=== PATIENT | female | born 1955 | race Caucasian/White ===

== ENCOUNTER 2016-07-31 10:12 | Emergency (ER) | payer OTHER, SELFPAY ==
[2016-07-31 10:28] VITALS: O2SAT 96
--- NOTE | 2016-07-31 10:57 | ERPHSYRPT ---
- History of Present Illness Time Seen by Provider: 07/31/16 10:49 Source: patient Exam Limitations: no limitations Patient Subjective Stated Complaint: pain left ankle for one week. denies injury Triage Nursing Assessment: ambulated to room limping on left foot. left ankle swollen. foot warm, normal color, good pedal pulse and cap refill Physician History: The patient is a 61-year-old female with her daughter complaining of left foot and ankle pain for one week. It is also swollen more so after the end of the day. She denies injury. She states she has broken the ankle 3 times in the past. She is taking Tylenol with some relief. It hurts to walk on it. Method of Injury: other (none) Occurred: last week Quality: constant, aching Severity of Pain-Max: mild Severity of Pain-Current: mild Lower Extremities Pain: foot: left, ankle: left Modifying Factors: Improves With: nothing Associated Symptoms: none Allergies/Adverse Reactions: codeine [Codeine] Allergy (Mild, Verified 08/07/15 13:39) Hives hives with itching reported by pt. Home Medications: No Home Meds 1 ea UD 08/07/15 [History] Hx Tetanus, Diphtheria Vaccination/Date Given: No (unknown) Hx Influenza Vaccination/Date Given: No Hx Pneumococcal Vaccination/Date Given: No Immunizations Up to Date: No - Review of Systems Constitutional: No Fever, No Chills Eyes: No Symptoms Ears, Nose, & Throat: No Symptoms Respiratory: No Cough, No Dyspnea Cardiac: No Chest Pain, No Edema, No Syncope Abdominal/Gastrointestinal: No Abdominal Pain, No Nausea, No Vomiting, No Diarrhea Genitourinary Symptoms: No Dysuria Musculoskeletal: Joint Swelling, No Back Pain, No Neck Pain Skin: No Rash Neurological: No Dizziness, No Focal Weakness, No Sensory Changes Psychological: No Symptoms Endocrine: No Symptoms Hematologic/Lymphatic: No Symptoms Immunological/Allergic: No Symptoms All Other Systems: Reviewed and Negative - Past Medical History Pertinent Past Medical History: Yes Neurological History: No Pertinent History ENT History: No Pertinent History Cardiac History: Hypertension Respiratory History: Bronchitis, COPD, Other Endocrine Medical History: No Pertinent History Musculoskeletal History: No Pertinent History GI Medical History: GERD History: No Pertinent History Psycho-Social History: No Pertinent History Female Reproductive Disorders: No Pertinent History - Past Surgical History Past Surgical History: Yes Neuro Surgical History: No Pertinent History Cardiac: Cardiac Catheterization Respiratory: No Pertinent History Gastrointestinal: No Pertinent History Genitourinary: No Pertinent History Musculoskeletal: Orthopedic Surgery Female Surgical History: Hysterectomy Other Surgical History: HEART CATH, foot - Social History Smoking Status: Current every day smoker How long have you smoked: 12 Exposure to second hand smoke: Yes Alcohol Use: None Drug Use: none Patient Lives Alone: Yes Significant Family History: heart disease, hypertension - Female History Hx Now: No - Nursing Vital Signs Nursing Vital Signs: Initial Vital Signs Temperature 97.8 F Temperature Source Oral Pulse Rate 83 Respiratory Rate 20 Blood Pressure 208/114 Pain Intensity 4 - Physical Exam General Appearance: mild distress Eyes, Ears, Nose, Throat Exam: moist mucous membranes Neck Exam: non-tender, supple Cardiovascular/Respiratory Exam: chest non-tender, normal breath sounds, regular rate/rhythm, no respiratory distress Gastrointestinal/Abdominal Exam: non-tender, guarding Back Exam: normal inspection, No vertebral tenderness Hips Exam: bilateral: non-tender, normal inspection Legs Exam: bilateral leg: non-tender, normal inspection Knees Exam: bilateral knee: non-tender, normal inspection Ankle Exam: right ankle: non-tender, normal inspection, left ankle: pain, soft tissue tenderness, swelling Foot Exam: right foot: non-tender, normal inspection, normal range of motion, left foot: pain (pain and swelling at distal Achilles tendon ), swelling Neuro/Tendon Exam: normal sensation, normal motor functions Mental Status Exam: alert, oriented x 3, cooperative Skin Exam: normal color, warm, dry SpO2 Interpretation: normal SpO2: 96 Oxygen Delivery: Room Air - Radiology Exams Left Ankle X-ray Interpretation: Teleradiologist Report, Negative Left Foot X-ray Interpretation: Teleradiologist Report, Negative Ordered Tests: Active Orders 24 hr Category Date Time Status ANKLE (3 VIEWS) Stat Exams 07/31/16 11:01 Completed FOOT (MINIMUM 3 VIEWS) Stat Exams 07/31/16 11:01 Completed - Progress Progress: unchanged Counseled pt/family regarding: lab results - Departure Time of Disposition: 11:30 Departure Disposition: Home Clinical Impression: Achilles bursitis or tendinitis Condition: Stable Critical Care Time: No Additional Instructions: Ice and Naproxen as needed. No weight bearing until released. Follow up on at 10:[address] Plasencia. Prescriptions: Naproxen 500 mg PO BID PRN #30 tablet
--- NOTE | 2016-07-31 11:25 | XRAY ---
Indication: Pain and swelling. No known injury. Comparison: None 3 views of the left ankle demonstrates mild soft tissue swelling and moderate posterior/plantar heel spurs. No other bony, articular, or soft tissue abnormalities.
--- NOTE | 2016-07-31 11:25 | XRAY ---
Indication: Pain and swelling. No known injury. Comparison: None 3 nonweightbearing views of the left foot demonstrates moderate heel spurs. Smaller spur at the base of the fifth metatarsal. No other bony, articular, or soft tissue abnormalities.
[2016-07-31 11:29] VITALS: BP 174/92; PULSE 73
== END 2016-07-31 12:02 | disposition home or self-care (01) ==
LOC: ED 10:12
DX: M76.62 Achilles tendinitis, left leg (principal); I10 Essential (primary) hypertension
CPT/HCPCS: 73610; 73630; 99283

== ENCOUNTER 2017-04-06 09:48 | Emergency (ER) | payer OTHER ==
--- NOTE | 2017-04-06 10:20 | ERPHSYRPT ---
- History of Present Illness Time Seen by Provider: 04/06/17 10:12 Source: patient, family Exam Limitations: no limitations Patient Subjective Stated Complaint: PT REPORTS SOB-CHEST PRESSURE-PRODUCTIVE COUGH WITH CREAMY SPUTUM Triage Nursing Assessment: PT PINK WARM ET [id number] UPON ARRIVAL-MOIST COUGH NTOED-SLIGHT WHEEZES NOTED-NO RETRACTIONS NTOED Physician History: The patient is a 61-year-old female with her family complaining of pain between her shoulder blades since Thursday night, a cold and cough for 2 weeks, increasing shortness of breath today, and palpitations in her chest last night. She's been taking 2 rounds of antibiotic for the cold and cough. She finished the last antibiotic yesterday. She's been coughing up yellow sputum. She denies fevers. She smokes. Her past medical history is significant for COPD, hypertension, and high cholesterol. Timing/Duration: day(s) (3) Activities at Onset: none Quality: other (palpitations) Location: central Chest Pain Radiation: no radiation Severity of Pain-Max: moderate Severity of Pain-Current: none Modifying Factors: Improves With: nothing Nitro Today/Relief: no nitro taken today Aspirin Treatment Today: no aspirin today Associated Symptoms: shortness of breath, cough Prior Chest Pain/Cardiac Workup: no prior chest pain, recently seen/treated Allergies/Adverse Reactions: codeine [Codeine] Allergy (Mild, Verified 04/06/17 10:01) Hives hives with itching reported by pt. Home Medications: Amlodipine Besylate 5 mg [Norvasc 5 mg] 5 mg PO DAILY 04/06/17 [History] Atorvastatin Calcium [Lipitor] 20 mg PO DAILY 04/06/17 [History] Esomeprazole Magnesium [Nexium] 40 mg PO DAILY 04/06/17 [History] Hydralazine HCl 50 mg PO BID 04/06/17 [History] Spironolactone [Aldactone] 50 mg PO DAILY 04/06/17 [History] Hx Tetanus, Diphtheria Vaccination/Date Given: No Hx Influenza Vaccination/Date Given: No Hx Pneumococcal Vaccination/Date Given: No Immunizations Up to Date: Yes - Review of Systems Constitutional: No Fever, No Chills Eyes: No Symptoms Ears, Nose, & Throat: No Symptoms Respiratory: Cough, Dyspnea, Wheezing Cardiac: Palpitations Abdominal/Gastrointestinal: No Abdominal Pain, No Nausea, No Vomiting, No Diarrhea Genitourinary Symptoms: No Dysuria Musculoskeletal: No Back Pain, No Neck Pain Skin: No Symptoms Neurological: No Dizziness, No Focal Weakness, No Sensory Changes Psychological: No Symptoms Endocrine: No Symptoms Hematologic/Lymphatic: No Symptoms Immunological/Allergic: No Symptoms All Other Systems: Reviewed and Negative - Past Medical History Pertinent Past Medical History: Yes Neurological History: No Pertinent History ENT History: No Pertinent History Cardiac History: Hypertension Respiratory History: Bronchitis, COPD Endocrine Medical History: No Pertinent History Musculoskeletal History: Other GI Medical History: GERD History: No Pertinent History Psycho-Social History: No Pertinent History Female Reproductive Disorders: No Pertinent History Other Medical History: Bone spurs in the L foot, hiatial hernia - Past Surgical History Past Surgical History: Yes Neuro Surgical History: No Pertinent History Cardiac: Cardiac Catheterization Respiratory: No Pertinent History Gastrointestinal: No Pertinent History Genitourinary: No Pertinent History Musculoskeletal: Orthopedic Surgery Female Surgical History: Hysterectomy Other Surgical History: HEART CATH, foot - Social History Smoking Status: Current every day smoker How long have you smoked: 12 Exposure to second hand smoke: Yes Alcohol Use: None Drug Use: none Patient Lives Alone: Yes Significant Family History: heart disease, hypertension - Female History Hx Now: No - Nursing Vital Signs Nursing Vital Signs: Initial Vital Signs Temperature 98.8 F 04/06/17 09:58 Pulse Rate 90 04/06/17 09:58 Respiratory Rate 20 04/06/17 09:58 Blood Pressure 161/82 04/06/17 09:58 O2 Sat by Pulse Oximetry 99 04/06/17 09:58 Pain Scale Pain Intensity 3 - Physical Exam General Appearance: mild distress Eye Exam: PERRL/EOMI, eyes nml inspection Ears, Nose, Throat Exam: normal ENT inspection, moist mucous membranes Neck Exam: normal inspection, non-tender, supple Respiratory Exam: diminished breath sounds, wheezing Cardiovascular Exam: regular rate/rhythm, normal heart sounds, No edema Gastrointestinal/Abdomen Exam: soft, No tenderness, No mass Pelvic Exam: not done Rectal Exam: not done Back Exam: normal inspection, No CVA tenderness, No vertebral tenderness Extremity Exam: normal inspection, normal range of motion Neurologic Exam: alert, oriented x 3, cooperative, normal mood/affect, nml cerebellar function, sensation nml, No motor deficits Skin Exam: normal color, warm, dry Lymphatic Exam: No adenopathy SpO2 Interpretation: normal SpO2: 99 Oxygen Delivery: Room Air - Course EKG Interpreted by Me: RATE, Sinus Rhythm, Left [place] Deviation, NORMAL INTERVALS , NORMAL QRS, NORMAL ST-T - Radiology Exams Chest X-ray Interpretation: Teleradiologist Report, Negative (per Dr Rod) Ordered Tests: Active Orders 24 hr Category Date Time Status EKG-ER Only STAT Care 04/06/17 10:25 Active IV Insertion STAT Care 04/06/17 10:25 Active Pulse Oximetry (ED) STAT Care 04/06/17 10:25 Active CHEST 2 VIEWS (PA AND LAT) Stat Exams 04/06/17 10:26 Completed BLOOD CULTURE Stat Lab 04/06/17 10:42 Received CBC W DIFF Stat Lab 04/06/17 10:15 Completed CMP Stat Lab 04/06/17 10:15 Completed Lactic Acid Stat Lab 04/06/17 10:15 Completed TROPONIN Q3H Lab 04/06/17 10:15 Completed TROPONIN Q3H Lab 04/06/17 13:30 Ordered TROPONIN Q3H Lab 04/06/17 16:30 Ordered TROPONIN Q3H Lab 04/06/17 19:30 Ordered TROPONIN Q3H Lab 04/06/17 22:30 Ordered Respiratory Nebulizer STAT RT 04/06/17 10:27 Active Medication Summary Discontinued Medications Generic Name Dose Route Start Last Admin Trade Name Freq PRN Reason Stop Dose Admin Albuterol/Ipratropium 3 ml 04/06/17 10:25 04/06/17 10:43 Duoneb 0.5-3 Mg/3 Ml Neb IH 04/06/17 10:26 3 ml STAT ONE Administration Albuterol/Ipratropium Confirm 04/06/17 10:41 Duoneb 0.5-3 Mg/3 Ml Neb Administered 04/06/17 10:42 Dose 3 ml IH .STK-MED ONE Methylprednisolone Sodium Succinate 125 mg 04/06/17 10:25 04/06/17 10:49 Solu-Medrol 125 Mg IV 04/06/17 10:26 125 mg STAT ONE Administration Methylprednisolone Sodium Succinate Confirm 04/06/17 10:36 Solu-Medrol 125 Mg Administered 04/06/17 10:37 Dose 125 mg .ROUTE .STK-MED ONE Lab/Rad Data: Laboratory Result Diagrams 04/06/17 10:15 04/06/17 10:15 Laboratory Results 04/06/17 04/06/17 04/06/17 Range/Units 10:15 10:15 10:15 WBC (4.0-10.5) K/mm3 RBC (4.1-5.4) M/mm3 Hgb (12.0-16.0) gm/dl Hct (35-47) % MCV (78-100) fl MCH (26-32) pg MCHC (32-36) g/dl RDW (11.5-14.0) % Plt Count (150-450) K/mm3 MPV (6-9.5) fl Gran % (36.0-66.0) % Lymphocytes % (24.0-44.0) % Monocytes % (0.0-12.0) % Eosinophils % (0.00-5.0) % Basophils % (0.0-0.4) % Basophils # (0-0.4) Sodium 139 (136-145) mEq/L Potassium 3.7 (3.5-5.1) mEq/L Chloride 104 (98-107) mEq/L Carbon Dioxide 25.6 (21-32) mEq/L Anion Gap 13.1 (5-15) MEQ/L BUN 16 (9-20) mg/dL Creatinine 1.13 (0.55-1.30) mg/dl Estimated GFR 52 ML/MIN Glucose 201 H (70-110) MG/DL Lactic Acid 1.2 (0.4-2.0) Calcium 9.2 (8.5-10.1) mg/dL Total Bilirubin 0.70 (0.2-1.0) mg/dL AST 24 (15-37) U/L ALT 25 (12-78) U/L Alkaline Phosphatase 68 (46-116) U/L Troponin I < 0.017 (0.000-0.056) ng/ml Serum Total Protein 7.4 (6.4-8.2) gm/dL Albumin 3.9 (3.4-5.0) g/dL 04/06/17 Range/Units 10:15 WBC 15.9 H (4.0-10.5) K/mm3 RBC 4.78 (4.1-5.4) M/mm3 Hgb 14.5 (12.0-16.0) gm/dl Hct 44.1 (35-47) % MCV 92.3 (78-100) fl MCH 30.3 (26-32) pg MCHC 32.9 (32-36) g/dl RDW 14.1 H (11.5-14.0) % Plt Count 274 (150-450) K/mm3 MPV 9.3 (6-9.5) fl Gran % 79.7 H (36.0-66.0) % Lymphocytes % 13.3 L (24.0-44.0) % Monocytes % 4.9 (0.0-12.0) % Eosinophils % 1.8 (0.00-5.0) % Basophils % 0.3 (0.0-0.4) % Basophils # 0.04 (0-0.4) Sodium (136-145) mEq/L Potassium (3.5-5.1) mEq/L Chloride (98-107) mEq/L Carbon Dioxide (21-32) mEq/L Anion Gap (5-15) MEQ/L BUN (9-20) mg/dL Creatinine (0.55-1.30) mg/dl Estimated GFR ML/MIN Glucose (70-110) MG/DL Lactic Acid (0.4-2.0) Calcium (8.5-10.1) mg/dL Total Bilirubin (0.2-1.0) mg/dL AST (15-37) U/L ALT (12-78) U/L Alkaline Phosphatase (46-116) U/L Troponin I (0.000-0.056) ng/ml Serum Total Protein (6.4-8.2) gm/dL Albumin (3.4-5.0) g/dL - Progress Progress: improved Air Movement: good Progress Note: 04/06/17 12:06 After a DuoNeb treatment and Solu-Medrol 125 mg IV, the air movement is good and the wheezing has resolved. O2 saturation is still in the high 90s. The patient however states she is no better. Blood Culture(s) Obtained: Yes Antibiotics given: No Counseled pt/family regarding: lab results, diagnosis, need for follow-up, rad results - Departure Time of Disposition: 12:04 Departure Disposition: Home Clinical Impression: Bronchitis Condition: Stable Critical Care Time: No Referrals: LANA MENON MD [Primary Care Provider] - Additional Instructions: You have bronchitis with wheezing. You were treated with a DuoNeb and Solu- Medrol 125 mg by IV in the ER. The wheezing has resolved and you are moving air very well. Her previous antibiotics were doxycycline 100 mg twice a day for 10 days followed by Levaquin 500 mg daily for 7 days. Starting today take Augmentin 875 twice a day for 10 days. Also take prednisone 60 mg daily for 5 days. You were given a work excuse for today. Follow-up in one to 2 days. Prescriptions: Amoxicillin/Potassium Clav [Augmentin 875-125 Tablet] 875 mg PO BID #20 tablet Prednisone 10 mg [Deltasone 10 mg] 60 mg PO DAILY #30 tablet
[2017-04-06] MEDS ORDERED: solu-MEDROL 125 MG IV ONE (10:25)
[2017-04-06] MEDS ORDERED: DUONEB 0.5-3 MG/3 ml Neb IH ONE ×2 (10:25→10:41)
[2017-04-06] MEDS ORDERED: solu-MEDROL 125 MG ONE (10:36)
[2017-04-06 10:45] LABS: BASOPHIL % 0.3 % (0.0-0.4); Eosinophil % 1.8 % (0.00-5.0); Granulocytes % 79.7 % (36.0-66.0); Lymphocytes % 13.3 % (24.0-44.0); Mean Cell Volume 92.3 fl (78-100); Mean Corpuscular Hemoglobin 30.3 pg (26-32); Mean Platelet Volume 9.3 fl (6-9.5); Monocytes % 4.9 % (0.0-12.0); Platelet Count 274 K/mm3 (150-450); Red Blood Count 4.78 M/mm3 (4.1-5.4); Red Cell Distribution Width 14.1 % (11.5-14.0); White Blood Count 15.9 K/mm3 (4.0-10.5)
[2017-04-06 10:49] LABS: ALBUMIN 3.9 g/dL (3.4-5.0); ANION GAP 13.1 MEQ/L (5-15); BILIRUBIN,TOTAL 0.7 mg/dL (0.2-1.0); Carbon Dioxide 25.6 mEq/L (21-32); Potassium 3.7 mEq/L (3.5-5.1); Total Protein 7.4 gm/dL (6.4-8.2)
[2017-04-06 11:05] VITALS: BP 146/78; PULSE 78
--- NOTE | 2017-04-06 11:33 | XRAY ---
Indication: Short of breath. Comparison: June 30, 2014. PA/lateral chest demonstrates normal heart and lungs. Bony thorax intact again with mild degenerative changes. No new/acute findings.
[2017-04-06 12:09] VITALS: O2SAT 99
== END 2017-04-06 12:17 | disposition home or self-care (01) ==
LOC: ED 09:48
DX: J40 Bronchitis, not specified as acute or chronic (principal); J44.9 Chronic obstructive pulmonary disease, unspecified; I10 Essential (primary) hypertension; E78.00 Pure hypercholesterolemia, unspecified; R00.2 Palpitations; Z79.899 Other long term (current) drug therapy
CPT/HCPCS: 36000; 36415; 71020; 80053; 83605; 84484; 85025; 87040; 93005; 96374; 99284; J2930; A9270-GY

== ENCOUNTER 2017-04-12 10:05 | Observation (INO) | payer OTHER ==
[2017-04-12] MEDS ORDERED: Sodium Chloride 0.9% 1000 ML 1,000 ML IV STA (10:07)
[2017-04-12] MEDS ORDERED: MORPHINE SULFATE 2 MG INJ IV ONE (10:07)
[2017-04-12] MEDS ORDERED: DUONEB 0.5-3 MG/3 ml Neb IH ONE ×2 (10:11→10:36)
[2017-04-12] MEDS ORDERED: MORPHINE SULFATE 2 MG INJ ONE (10:16)
[2017-04-12] MEDS ORDERED: Sodium Chloride 0.9% 1000 ML 1,000 ML ONE (10:17)
[2017-04-12 10:34] LABS: Mean Cell Volume 91.7 fl (78-100); Mean Corpuscular Hemoglobin 30.2 pg (26-32); Platelet Count 304 K/mm3 (150-450); Red Cell Distribution Width 14.6 % (11.5-14.0); White Blood Count 20.6 K/mm3 (4.0-10.5)
[2017-04-12 10:44] LABS: ALBUMIN 3.8 g/dL (3.4-5.0); ANION GAP 13.1 MEQ/L (5-15); BILIRUBIN,TOTAL 0.7 mg/dL (0.2-1.0); Carbon Dioxide 29.3 mEq/L (21-32); Potassium 3.7 mEq/L (3.5-5.1); Total Protein 7.2 gm/dL (6.4-8.2)
--- NOTE | 2017-04-12 10:53 | ERPHSYRPT ---
- History of Present Illness Time Seen by Provider: 04/12/17 10:51 Historian: patient Exam Limitations: no limitations Patient Subjective Stated Complaint: PT states "I had broncitis that I am on augmentin for but this morning I got off work and my chest just exploded in pain on the right side." Triage Nursing Assessment: Pt alert and oriented X 3, skin pwd pt ambulates holding on to her right side. Pt moaning, tachypneic, has raspy voice. Pt able to speak in full sentences, clear speech. Physician History: PT states "I had broncitis that I am on augmentin for but this morning I got off work and my chest just exploded in pain on the right side."patient is complaining of right-side lower chest wall pain. Timing/Duration: today Activities at Onset: none Quality: stabbing Location: other (right side lower chest wall) Severity of Pain-Max: moderate Severity of Pain-Current: moderate Modifying Factors: Improves With: nothing Associated Symptoms: shortness of breath, cough, hurts to breathe Prior Chest Pain/Cardiac Workup: no prior chest pain Nitro Today/Relief: no nitro taken today Aspirin Treatment Today: no aspirin today Allergies/Adverse Reactions: codeine [Codeine] Allergy (Mild, Verified 04/06/17 10:01) Hives hives with itching reported by pt. Home Medications: Amlodipine Besylate 5 mg [Norvasc 5 mg] 5 mg PO DAILY 04/06/17 [History] Atorvastatin Calcium [Lipitor] 20 mg PO DAILY 04/06/17 [History] Esomeprazole Magnesium [Nexium] 40 mg PO DAILY 04/06/17 [History] Hydralazine HCl 50 mg PO BID 04/06/17 [History] Hx Tetanus, Diphtheria Vaccination/Date Given: No Hx Influenza Vaccination/Date Given: No Hx Pneumococcal Vaccination/Date Given: No Immunizations Up to Date: Yes - Review of Systems Constitutional: No Fever, No Chills Eyes: No Symptoms Ears, Nose, & Throat: No Symptoms Respiratory: No Cough, No Dyspnea Cardiac: Chest Pain (right side lower chest wall), No Edema, No Syncope Abdominal/Gastrointestinal: No Abdominal Pain, No Nausea, No Vomiting, No Diarrhea Genitourinary Symptoms: No Dysuria Musculoskeletal: No Back Pain, No Neck Pain Skin: No Rash Neurological: No Dizziness, No Focal Weakness, No Sensory Changes Psychological: No Symptoms Endocrine: No Symptoms All Other Systems: Reviewed and Negative - Past Medical History Pertinent Past Medical History: Yes Neurological History: No Pertinent History ENT History: No Pertinent History Cardiac History: Hypertension Respiratory History: Bronchitis, COPD Endocrine Medical History: No Pertinent History Musculoskeletal History: Other GI Medical History: GERD History: No Pertinent History Psycho-Social History: No Pertinent History Female Reproductive Disorders: No Pertinent History Other Medical History: Bone spurs in the L foot, hiatial hernia - Past Surgical History Past Surgical History: Yes Neuro Surgical History: No Pertinent History Cardiac: Cardiac Catheterization Respiratory: No Pertinent History Gastrointestinal: No Pertinent History Genitourinary: No Pertinent History Musculoskeletal: Orthopedic Surgery Female Surgical History: Hysterectomy Other Surgical History: HEART CATH, foot - Social History Smoking Status: Current every day smoker How long have you smoked: 12 years Exposure to second hand smoke: Yes Alcohol Use: None Drug Use: none Patient Lives Alone: Yes Significant Family History: heart disease, hypertension - Female History Hx Last Menstrual Period: histerectomy Hx Now: No - Nursing Vital Signs Nursing Vital Signs: Initial Vital Signs Temperature 97.9 F 04/12/17 10:06 Pulse Rate 86 04/12/17 10:06 Respiratory Rate 24 04/12/17 10:06 Blood Pressure 152/72 04/12/17 10:06 O2 Sat by Pulse Oximetry 99 04/12/17 10:06 Pain Scale Pain Intensity 4 - Physical Exam General Appearance: no apparent distress, alert Eye Exam: PERRL/EOMI, eyes nml inspection Ears, Nose, Throat Exam: normal ENT inspection, moist mucous membranes Neck Exam: normal inspection, non-tender, supple, full range of motion Respiratory Exam: normal breath sounds, chest tenderness (right side lower chest wall), No respiratory distress Cardiovascular Exam: regular rate/rhythm, normal heart sounds Gastrointestinal/Abdomen Exam: soft, No tenderness, No mass Back Exam: normal inspection, No CVA tenderness, No vertebral tenderness Extremity Exam: normal inspection, normal range of motion Neurologic Exam: alert, oriented x 3, cooperative, normal mood/affect, sensation nml, No motor deficits Skin Exam: normal color, warm, dry SpO2: 97 Oxygen Delivery: Room Air - Course Nursing assessment & vital signs reviewed: Yes EKG Interpreted by Me: Sinus Rhythm - Radiology Exams Chest X-ray Interpretation: Reviewed by me (no acute infiltrate) Ordered Tests: Active Orders 24 hr Category Date Time Status Telephone Clerks Supervisor STAT Care 04/12/17 10:08 Active EKG-ER Only STAT Care 04/12/17 10:07 Active IV Insertion STAT Care 04/12/17 10:07 Active CHEST 1 VIEW (PORTABLE) Stat Exams 04/12/17 10:08 Taken CBC W DIFF Stat Lab 04/12/17 10:15 Completed CMP Stat Lab 04/12/17 10:15 Completed D-DIMER QUANTITATION Stat Lab 04/12/17 10:15 Completed Manual Differential NC Stat Lab 04/12/17 10:15 Completed TROPONIN Stat Lab 04/12/17 10:15 Completed Respiratory Nebulizer STAT RT 04/12/17 10:11 Completed Transfer Order Routine Transfer 04/12/17 Ordered Medication Summary Discontinued Medications Generic Name Dose Route Start Last Admin Trade Name Freq PRN Reason Stop Dose Admin Albuterol/Ipratropium 3 ml 04/12/17 10:11 04/12/17 10:36 Duoneb 0.5-3 Mg/3 Ml Neb IH 04/12/17 10:12 3 ml STAT ONE Administration Albuterol/Ipratropium Confirm 04/12/17 10:36 Duoneb 0.5-3 Mg/3 Ml Neb Administered 04/12/17 10:37 Dose 3 ml IH .STK-MED ONE Fentanyl Citrate 50 mcg 04/12/17 11:30 Sublimaze 100 Mcg/2 Ml IV 04/12/17 11:31 STAT ONE Sodium Chloride 1,000 mls @ 999 mls/hr 04/12/17 10:07 04/12/17 10:18 Sodium Chloride 0.9% 1000 Ml IV 04/12/17 11:07 999 mls/hr .Q1H1M STA Administration Sodium Chloride Confirm 04/12/17 10:17 Sodium Chloride 0.9% 1000 Ml Administered 04/12/17 10:18 Dose 1,000 mls @ ud .ROUTE .STK-MED ONE Morphine Sulfate 2 mg 04/12/17 10:07 04/12/17 10:18 Morphine Sulfate 2 Mg Inj IV 04/12/17 10:08 2 mg STAT ONE Administration Morphine Sulfate Confirm 04/12/17 10:16 Morphine Sulfate 2 Mg Inj Administered 04/12/17 10:17 Dose 2 mg .ROUTE .STK-MED ONE Lab/Rad Data: Laboratory Result Diagrams 04/12/17 10:15 04/12/17 10:15 Laboratory Results 04/12/17 04/12/17 04/12/17 Range/Units 10:15 10:15 10:15 WBC (4.0-10.5) K/mm3 RBC (4.1-5.4) M/mm3 Hgb (12.0-16.0) gm/dl Hct (35-47) % MCV (78-100) fl MCH (26-32) pg MCHC (32-36) g/dl RDW (11.5-14.0) % Plt Count (150-450) K/mm3 MPV (6-9.5) fl D-Dimer 192 (0-500) ng/mL Sodium (136-145) mEq/L Potassium (3.5-5.1) mEq/L Chloride (98-107) mEq/L Carbon Dioxide (21-32) mEq/L Anion Gap (5-15) MEQ/L BUN (9-20) mg/dL Creatinine (0.55-1.30) mg/dl Estimated GFR ML/MIN Glucose (70-110) MG/DL Hemoglobin A1c 6.6 H (4.5-6.2) Calcium (8.5-10.1) mg/dL Total Bilirubin (0.2-1.0) mg/dL AST (15-37) U/L ALT (12-78) U/L Alkaline Phosphatase (46-116) U/L Troponin I < 0.017 (0.000-0.056) ng/ml Serum Total Protein (6.4-8.2) gm/dL Albumin (3.4-5.0) g/dL 04/12/17 04/12/17 Range/Units 10:15 10:15 WBC 20.6 H (4.0-10.5) K/mm3 RBC 4.70 (4.1-5.4) M/mm3 Hgb 14.2 (12.0-16.0) gm/dl Hct 43.1 (35-47) % MCV 91.7 (78-100) fl MCH 30.2 (26-32) pg MCHC 32.9 (32-36) g/dl RDW 14.6 H (11.5-14.0) % Plt Count 304 (150-450) K/mm3 MPV 9.0 (6-9.5) fl D-Dimer (0-500) ng/mL Sodium 141 (136-145) mEq/L Potassium 3.7 (3.5-5.1) mEq/L Chloride 102 (98-107) mEq/L Carbon Dioxide 29.3 (21-32) mEq/L Anion Gap 13.1 (5-15) MEQ/L BUN 22 H (9-20) mg/dL Creatinine 1.09 (0.55-1.30) mg/dl Estimated GFR 54 ML/MIN Glucose 168 H (70-110) MG/DL Hemoglobin A1c (4.5-6.2) Calcium 9.1 (8.5-10.1) mg/dL Total Bilirubin 0.70 (0.2-1.0) mg/dL AST 10 L (15-37) U/L ALT 26 (12-78) U/L Alkaline Phosphatase 62 (46-116) U/L Troponin I (0.000-0.056) ng/ml Serum Total Protein 7.2 (6.4-8.2) gm/dL Albumin 3.8 (3.4-5.0) g/dL - Progress Progress: unchanged Air Movement: fair Blood Culture(s) Obtained: Yes Antibiotics given: Yes Discussed with DrRonald: Luis Angel Zhao Will see patient in: hospital (observation) Counseled pt/family regarding: lab results, diagnosis, need for follow-up, smoking cessation - Departure Time of Disposition: 11:36 Departure Disposition: Observation Clinical Impression: Bronchitis, Pleuralgia Condition: Fair Critical Care Time: Yes Critical Care Time(excluding separately billable procedures): 30-74 minutes Referrals: LANA MENON MD [Primary Care Provider] -
[2017-04-12] MEDS ORDERED: SUBLIMAZE 100 MCG/2 ML IV ONE (11:30)
[2017-04-12 11:40] LABS: Platelet Estimate NORMAL (NORMAL); Total Cells Counted 100
[2017-04-12] MEDS ORDERED: SUBLIMAZE 100 MCG/2 ML ONE (11:42)
[2017-04-12] MEDS ORDERED: TORAdol 30 mg Injection IV PRN (12:30)
[2017-04-12] MEDS ORDERED: MORPHINE SULFATE 2 MG INJ IV PRN (12:30)
[2017-04-12] MEDS ORDERED: TYLENOL 325 MG PO PRN (12:30)
[2017-04-12] MEDS ORDERED: Zofran 4 MG/2 ML VIAL IV PRN (12:30)
[2017-04-12] MEDS ORDERED: solu-MEDROL 125 MG IV SCH (12:30)
[2017-04-12] MEDS ORDERED: solu-MEDROL 125 MG ONE (13:56)
[2017-04-12] MEDS ORDERED: ROCEPHIN 1 Gm-D5w 50 ml Bag** 1 G/50 ML IVPB IV SCH (14:00)
[2017-04-12] MEDS: Sodium Chloride 0.9% 1000 ML 1,000 ML IV SCH (14:16)
[2017-04-12] MEDS: PROVENTIL 2.5 MG/3 ML NEB IH SCH ×3 (14:47→23:12)
[2017-04-12] MEDS ORDERED: Zithromax 500 MG/ 250 ML NaCl Premix 500 MG/250 ML IVPB IV SCH (15:00)
[2017-04-12] MEDS ORDERED: PROTONIX 40 MG IV IV SCH (15:00)
[2017-04-12] MEDS: solu-MEDROL 125 MG IV SCH ×2 (18:36→23:33)
--- NOTE | 2017-04-12 20:17 | XRAY ---
Indication: Right-sided chest pain. Comparison: April 06, 2017. Portable chest again demonstrates normal heart and lungs. No new/acute cardiopulmonary abnormalities.
[2017-04-13] MEDS: Sodium Chloride 0.9% 1000 ML 1,000 ML IV SCH (01:10)
[2017-04-13] MEDS: PROVENTIL 2.5 MG/3 ML NEB IH SCH ×2 (02:53→06:46)
[2017-04-13] MEDS: solu-MEDROL 125 MG IV SCH (05:24)
[2017-04-13 05:53] LABS: ANION GAP 16.4 MEQ/L (5-15); Carbon Dioxide 24.4 mEq/L (21-32); Mean Cell Volume 92.9 fl (78-100); Mean Corpuscular Hemoglobin 30.2 pg (26-32); Mean Platelet Volume 9.4 fl (6-9.5); Platelet Count 263 K/mm3 (150-450); Potassium 3.8 mEq/L (3.5-5.1); Red Blood Count 4.07 M/mm3 (4.1-5.4); Red Cell Distribution Width 14.2 % (11.5-14.0); White Blood Count 14.4 K/mm3 (4.0-10.5)
[2017-04-13 06:14] LABS: BAND 1 % (0.0-2.0); Platelet Estimate NORMAL (NORMAL); Total Cells Counted 100
[2017-04-13 06:50] VITALS: O2SAT 95
[2017-04-13 07:16] VITALS: BP 140/63; PULSE 80
--- NOTE | 2017-04-13 08:01 | PCM.SSS ---
History of Present Illness - Chief Complaint Chief Complaint: Shortness of Breath History of Present Illness: is a 61 year old female who reported to the ER yesterday, she had been seen 6 days prior and diagnosed with acute bronchitis. She was put on prednisone and augmentin. She has completed the prednisone, was on day 6 of augmentin and developed right sided chest pain. She felt like her right chest wall was in a vice, she had sharp pain with cough or deep breath. no nausea, vomiting, she was short of breath, no diaphoresis. - Review of Systems Constitutional: No Symptoms Respiratory: Cough, Short Of Breath Cardiac: Chest Pain Abdominal/Gastrointestinal: No Abdominal Pain, No Nausea, No Vomiting, No Diarrhea Genitourinary Symptoms: No Dysuria All Other Systems: Reviewed and Negative Medications & Allergies Home Medications: Home Medication List Amlodipine Besylate 5 mg [Norvasc 5 mg] 5 mg PO DAILY 04/06/17 [History Confirmed 04/12/17] Amoxicillin/Potassium Clav [Augmentin 875-125 Tablet] 875 mg PO BID #20 tablet 04/06/17 [Rx Confirmed 04/12/17] Atorvastatin Calcium [Lipitor] 20 mg PO DAILY 04/06/17 [History Confirmed ] Esomeprazole Magnesium [Nexium] 40 mg PO DAILY 04/06/17 [History Confirmed 04/12] Hydralazine HCl 50 mg PO BID 04/06/17 [History Confirmed 04/12/17] Albuterol 8 gm Mdi Hfa [Ventolin Hfa MDI] 8 gm IH Q4-6HPRN PRN 04/12/17 [ History Confirmed 04/12/17] Spironolactone 25 mg [Aldactone 25 MG] 50 mg PO DAILY 04/12/17 [History Confirmed 04/12/17] Albuterol 2.5 mg/3 ml Neb [Proventil 2.5 mg/3 ml Neb] 2.5 mg IH Q4HRT # 100 neb 04/13/17 [Rx] Methylprednisolone [Medrol Dose Pack] 4 mg PO UD #1 pack 04/13/17 [Rx] Allergies/Adverse Reactions: Allergies Allergy/AdvReac Type Severity Reaction Status Date / Time codeine [Codeine] Allergy Mild Hives Verified 04/06/17 10:01 - Past Medical History Past Medical History: Yes Neurological History: No Pertinent History ENT History: No Pertinent History Cardiac History: Hypertension Respiratory History: Bronchitis, COPD Endocrine Medical History: No Pertinent History Musculoskelatal History: Other GI Medical History: GERD History: No Pertinent History Pyscho-Social History: No Pertinent History Reproductive Disorders: No Pertinent History Comment: Bone spurs in the L foot, hiatial hernia - Female History Hx Last Menstrual Period: histerectomy Are you now?: No - Past Surgical History Past Surgical History: Yes Neuro Surgical History: No Pertinent History Cardiac History: Cardiac Catheterization Respiratory Surgery: No Pertinent History GI Surgical History: No Pertinent History Genitourinary Surgical Hx: No Pertinent History Musculskeletal Surgical Hx: Orthopedic Surgery Female Surgical History: Hysterectomy Other Surgical History: HEART CATH, foot - Social History Smoking Status: Current every day smoker How long have you smoked: 20 YRS Exposure to second hand smoke: No Alcohol: None Drug Use: none Significant Family History: heart disease, hypertension - Physical Exam Vital Signs: Vital Signs - 24 hr Temp Pulse Pulse Resp BP Pulse Ox 04/13/17 07:15 98.0 F 80 18 140/63 95 04/13/17 06:00 86 18 95 04/13/17 03:54 978 F 88 22 143/72 96 04/13/17 02:55 88 22 96 04/13/17 02:00 18 04/13/17 00:00 98.0 F 77 17 134/65 94 L 04/12/17 23:17 89 18 96 04/12/17 22:00 20 04/12/17 19:57 98.0 F 72 20 131/72 95 04/12/17 19:00 72 20 95 04/12/17 18:00 18 04/12/17 16:32 98.0 F 79 18 157/73 92 L 04/12/17 15:57 97.9 F 70 18 162/72 95 04/12/17 14:50 77 18 95 04/12/17 14:00 97.9 F 83 20 166/77 96 04/12/17 13:23 83 20 96 04/12/17 12:18 97.9 F 79 18 166/77 94 L 04/12/17 12:11 97.9 F 79 166/77 04/12/17 11:57 97.9 F 79 18 166/77 94 L 04/12/17 11:55 95 H 20 112/68 97 04/12/17 11:37 97 04/12/17 11:22 98.3 F 84 20 112/48 99 04/12/17 10:11 89 16 97 04/12/17 10:06 97.9 F 88 86 24 152/72 99 General Appearance: no apparent distress, alert Neurologic Exam: alert, oriented x 3, cooperative, normal mood/affect, nml cerebellar function, nml station & gait, sensation nml, No motor deficits Respiratory Exam: prolonged expirations, wheezing Cardiovascular Exam: regular rate/rhythm, normal heart sounds, normal peripheral pulses Gastrointestinal/Abdomen Exam: soft, normal bowel sounds, No tenderness, No mass Extremity Exam: normal inspection, normal range of motion, pelvis stable Skin Exam: normal color, warm, dry, No rash Results - Labs Lab/Micro Results: Lab Results-Last 24 Hours 04/13/17 04/13/17 Range/Units 05:05 05:05 WBC 14.4 H (4.0-10.5) K/mm3 RBC 4.07 L (4.1-5.4) M/mm3 Hgb 12.3 (12.0-16.0) gm/dl Hct 37.8 (35-47) % MCV 92.9 (78-100) fl MCH 30.2 (26-32) pg MCHC 32.5 (32-36) g/dl RDW 14.2 H (11.5-14.0) % Plt Count 263 (150-450) K/mm3 MPV 9.4 (6-9.5) fl Segmented Neutrophils 98 H (36.0-66.0) % Band Neutrophils 1 (0.0-2.0) % Lymphocytes (Manual) 1 L (24-44) % Differential Comment NORMAL Platelet Estimate NORMAL (NORMAL) Sodium 143 (136-145) mEq/L Potassium 3.8 (3.5-5.1) mEq/L Chloride 106 (98-107) mEq/L Carbon Dioxide 24.4 (21-32) mEq/L Anion Gap 16.4 H (5-15) MEQ/L BUN 16 (9-20) mg/dL Creatinine 1.00 (0.55-1.30) mg/dl Estimated GFR 60 ML/MIN Glucose 269 H (70-110) MG/DL Calcium 8.6 (8.5-10.1) mg/dL - Other Procedures and Tests Respiratory Therapy 04/12/17 15:00 Respiratory Nebulizer Q4H Assessment/Plan (1) COPD exacerbation Current Visit: Yes Status: Acute Assessment & Plan: home on po steroid, continue albuterol and complete course of augmentin. sats are good on room air Code(s): J44.1 - CHRONIC OBSTRUCTIVE PULMONARY DISEASE W (ACUTE) EXACERBATION (2) Pleuritic chest pain Current Visit: Yes Status: Acute Hospital Summary - Vitals & Intake/Output Vital Signs: Vital Signs Temperature 98.0 F 04/13/17 07:15 Pulse Rate 80 04/13/17 07:15 Respiratory Rate 18 04/13/17 07:15 Blood Pressure 140/63 04/13/17 07:15 O2 Sat by Pulse Oximetry 95 04/13/17 07:15 Intake & Output: Intake & Output 04/10/17 04/11/17 04/12/17 04/13/17 11:59 11:59 11:59 11:59 Intake Total 2766 Balance 2766 Weight 106.413 kg - Lab Result Diagrams: 04/13/17 05:05 04/13/17 05:05 Lab Results-Last 24 Hrs: Lab Results-Last 24 Hours 04/13/17 04/13/17 Range/Units 05:05 05:05 WBC 14.4 H (4.0-10.5) K/mm3 RBC 4.07 L (4.1-5.4) M/mm3 Hgb 12.3 (12.0-16.0) gm/dl Hct 37.8 (35-47) % MCV 92.9 (78-100) fl MCH 30.2 (26-32) pg MCHC 32.5 (32-36) g/dl RDW 14.2 H (11.5-14.0) % Plt Count 263 (150-450) K/mm3 MPV 9.4 (6-9.5) fl Segmented Neutrophils 98 H (36.0-66.0) % Band Neutrophils 1 (0.0-2.0) % Lymphocytes (Manual) 1 L (24-44) % Differential Comment NORMAL Platelet Estimate NORMAL (NORMAL) Sodium 143 (136-145) mEq/L Potassium 3.8 (3.5-5.1) mEq/L Chloride 106 (98-107) mEq/L Carbon Dioxide 24.4 (21-32) mEq/L Anion Gap 16.4 H (5-15) MEQ/L BUN 16 (9-20) mg/dL Creatinine 1.00 (0.55-1.30) mg/dl Estimated GFR 60 ML/MIN Glucose 269 H (70-110) MG/DL Calcium 8.6 (8.5-10.1) mg/dL - Procedures and Test Procedures and Tests throughout Hospitalization: Therapy Orders & Screens 04/12/17 12:44 Smoking Cessation Education ONCE Comment: Diagnosis: Shortness of Breath Smoking Status: Current every day smoker How long have you smoked: 20 YRS Have you smoked in the past 12 months: Yes Approximately how many cigarettes per day: PK 1/2 DAY Do you dip or chew tobacco: No 04/12/17 15:00 Respiratory Nebulizer Q4H Comment: ALBUTEROL Q4 Diagnosis: Shortness of Breath - Discharge Disposition: Home, Self-Care Condition: Good Prescriptions: New Methylprednisolone [Medrol Dose Pack] 4 mg PO UD #1 pack Albuterol 2.5 mg/3 ml Neb [Proventil 2.5 mg/3 ml Neb] 2.5 mg IH Q4HRT # 100 neb Continue Hydralazine HCl 50 mg PO BID Esomeprazole Magnesium [Nexium] 40 mg PO DAILY Atorvastatin Calcium [Lipitor] 20 mg PO DAILY Amlodipine Besylate 5 mg [Norvasc 5 mg] 5 mg PO DAILY Amoxicillin/Potassium Clav [Augmentin 875-125 Tablet] 875 mg PO BID #20 tablet Spironolactone 25 mg [Aldactone 25 MG] 50 mg PO DAILY Albuterol 8 gm Mdi Hfa [Ventolin Hfa MDI] 8 gm IH Q4-6HPRN PRN PRN Reason: Shortness Of Breath Follow up with: LANA MENON MD [Primary Care Provider] -
[2017-04-13] MEDS ORDERED: Protonix 40MG Tablet PO SCH (10:00)
[2017-04-13] MEDS ORDERED: NORVASC 5 MG PO SCH (10:00)
[2017-04-13] MEDS ORDERED: NON-FORMULARY ITEM (Atorvastatin Calcium [Lipitor] 20 MG) PO SCH (10:00)
[2017-04-13] MEDS ORDERED: NON-FORMULARY ITEM (Hydralazine Hcl [Hydralazine Hcl] 50 MG) PO SCH (10:00)
[2017-04-13] MEDS ORDERED: NON-FORMULARY ITEM (Esomeprazole Magnesium [Nexium] 40 MG) PO SCH (10:00)
[2017-04-13] MEDS ORDERED: Aldactone 25 MG PO SCH (10:00)
[2017-04-13] MEDS ORDERED: Apresoline 25 MG TABLET PO SCH (10:00)
[2017-04-13] MEDS ORDERED: Augmentin 875-125 Tablet PO SCH (10:00)
[2017-04-13] MEDS ORDERED: ZOCOR 20MG PO SCH (22:00)
== END 2017-04-13 09:55 | disposition home or self-care (01) ==
LOC: ED 10:05 → MED SURG 11:52
PROVIDERS: ADMIT Family Medicine; ATTEND Family Medicine
DX: J44.1 Chronic obstructive pulmonary disease with (acute) exacerbation (principal)
CPT/HCPCS: 36000; 36415; 71010; 80048; 80053; 83036; 84484; 85025; 85379; 93005; 93041; 94640; 94760; 96360; 96374; 96375; 99285; G0378; J0456; J0696; J1885; J2270; J2930; J3010; A9270-GY

== ENCOUNTER 2018-03-10 14:44 | Emergency (ER) | payer OTHER ==
--- NOTE | 2018-03-10 15:24 | ERPHSYRPT ---
- History of Present Illness Time Seen by Provider: 03/10/18 15:10 Source: patient Exam Limitations: no limitations Patient Subjective Stated Complaint: Patient has been congested since Thursday. Triage Nursing Assessment: Patient ambulates into ER and transfers self into bed. Patient A+O X 3. Patient complains of congestion with a dry hacky cough since Thursday. Patient woke up this am with a productive cough with thick clear sputum. Patient complains of marv ear discomfort. Patient denie SOB. O2 96% on room air. Lungs noted to have inspiratory/expiratory wheezing througout. Physician History: 62 y/o white female with h/o htn on no meds, and smokes 1 and 1/2 ppd presents with 2 day h/o cough and congestion. she has been out of her htn meds for over a month since she lost insurance. denies cp. has mild, typical soa. pt can use hydrocodone. pt has h/o recurrent bronchitis and copd Timing/Duration: day(s) (2) Activities at Onset: activity Severity of Dyspnea-Max: moderate Severity of Dyspnea-Current: mild Possible Cause: occasional episodes Modifying Factors: Improves With: activity (worsen) Associated Symptoms: cough, wheezing, No chest pain/discomfort International travel in last 2 weeks: No Allergies/Adverse Reactions: codeine [Codeine] Allergy (Mild, Verified 03/10/18 14:59) Hives hives with itching reported by pt. Hx Tetanus, Diphtheria Vaccination/Date Given: Yes Hx Influenza Vaccination/Date Given: Yes Hx Pneumococcal Vaccination/Date Given: No Immunizations Up to Date: Yes - Review of Systems Constitutional: No Symptoms, No Fever Eyes: No Symptoms, No Eye Pain Ears, Nose, & Throat: No Symptoms, No Ear Pain Respiratory: Cough, Wheezing, No Dyspnea, No Stridor Cardiac: No Symptoms, No Chest Pain Abdominal/Gastrointestinal: No Symptoms, No Abdominal Pain, No Nausea, No Vomiting, No Diarrhea Genitourinary Symptoms: No Symptoms, No Dysuria, No Frequency, No Hematuria Musculoskeletal: No Symptoms Skin: No Symptoms Neurological: No Symptoms, No Dizziness Psychological: No Symptoms, No Alcohol Abuse, No Drug Abuse, No Anxiety Endocrine: No Symptoms Hematologic/Lymphatic: No Symptoms Immunological/Allergic: No Symptoms All Other Systems: Reviewed and Negative - Past Medical History Pertinent Past Medical History: Yes Neurological History: No Pertinent History ENT History: No Pertinent History Cardiac History: Hypertension Respiratory History: Bronchitis, COPD Endocrine Medical History: No Pertinent History Musculoskeletal History: Other GI Medical History: GERD History: No Pertinent History Psycho-Social History: No Pertinent History Female Reproductive Disorders: No Pertinent History Other Medical History: Bone spurs in the L foot, hiatial hernia - Past Surgical History Past Surgical History: Yes Neuro Surgical History: No Pertinent History Cardiac: Cardiac Catheterization Respiratory: No Pertinent History Gastrointestinal: No Pertinent History Genitourinary: No Pertinent History Musculoskeletal: Orthopedic Surgery Female Surgical History: Hysterectomy Other Surgical History: HEART CATH, foot - Social History Smoking Status: Current every day smoker How long have you smoked: 20 years Exposure to second hand smoke: No Alcohol Use: None Drug Use: none Patient Lives Alone: No Significant Family History: heart disease, hypertension - Female History Hx Last Menstrual Period: menopausal Hx Now: No - Nursing Vital Signs Nursing Vital Signs: Initial Vital Signs Temperature 98.3 F 03/10/18 14:50 Pulse Rate 76 03/10/18 14:50 Respiratory Rate 20 03/10/18 14:50 Blood Pressure 219/95 03/10/18 14:50 O2 Sat by Pulse Oximetry 97 03/10/18 14:50 Pain Scale Pain Intensity 0 - Physical Exam General Appearance: mild distress, alert Eye Exam: PERRL/EOMI, eyes nml inspection Ears, Nose, Throat Exam: hearing grossly normal, normal ENT inspection Neck Exam: normal inspection Respiratory Exam: airway intact, wheezing (bilat upper), No respiratory distress , No diminished breath sounds, No accessory muscle use, No rhonchi, No stridor Cardiovascular/Chest Exam: normal heart sounds, regular rate/rhythm Abdominal/Gastrointestinal Exam: soft, normal bowel sounds, No tenderness, No distention, No guarding, No rebound Extremity Exam: non-tender, normal range of motion, normal inspection Neurologic Exam: alert, oriented x 3, cooperative, 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, normal mood/affect Skin Exam: normal color, warm, dry Lymphatic Exam: No adenopathy SpO2 Interpretation: normal SpO2: 98 Oxygen Delivery: Room Air - Course Nursing assessment & vital signs reviewed: Yes Ordered Tests: Active Orders 24 hr Category Date Time Status Peak Expiratory Flow Rate ONCE RT 03/10/18 15:39 Active Respiratory Nebulizer STAT RT 03/10/18 15:39 Completed Respiratory Therapy Assessment DAILY RT 03/10/18 15:42 Active Respiratory Therapy Consult ONCE RT 03/10/18 15:26 Completed Medication Summary Discontinued Medications Generic Name Dose Route Start Last Admin Trade Name Bijal PRN Reason Stop Dose Admin Albuterol/Ipratropium 3 ml 03/10/18 15:38 03/10/18 15:39 Duoneb 0.5-3 Mg/3 Ml Neb IH 03/10/18 15:39 3 ml STAT ONE Administration Albuterol/Ipratropium Confirm 03/10/18 15:38 Duoneb 0.5-3 Mg/3 Ml Neb Administered 03/10/18 15:39 Dose 3 ml IH .STK-MED ONE Clonidine 0.1 mg 03/10/18 15:28 03/10/18 15:44 Catapres 0.1 Mg PO 03/10/18 15:29 0.1 mg STAT ONE Administration Clonidine Confirm 03/10/18 15:41 Catapres 0.1 Mg Administered 03/10/18 15:42 Dose 0.1 mg .ROUTE .STK-MED ONE Prednisone 10 mg 03/10/18 15:29 03/10/18 15:43 Deltasone 10 Mg PO 03/10/18 15:30 10 mg ONCE ONE Administration Prednisone Confirm 03/10/18 15:41 Deltasone 20 Mg Administered 03/10/18 15:42 Dose 20 mg .ROUTE .STK-MED ONE - Progress Progress: improved, re-examined Air Movement: good Progress Note: 03/10/18 16:18 after rt tx of duoneb, pt breathing better. pts bp improved with catapres. will restart pts htn meds as prescribed previously. will add azithromycin, prednisone , hydrocodone and albuterol inhaler. Blood Culture(s) Obtained: No Antibiotics given: Yes Counseled pt/family regarding: diagnosis, need for follow-up - Departure Time of Disposition: 16:23 Departure Disposition: Home Clinical Impression: Bronchitis, Sinusitis Condition: Stable Critical Care Time: No Referrals: LANA MENON MD [Primary Care Provider] - Additional Instructions: stop smoking. drink plenty of fluids. follow up with primary doctor for further management of your chronic lung and high blood pressure issues. Prescriptions: Albuterol 8 gm Mdi Hfa [Ventolin Hfa MDI] 8 gm IH Q4H #1 hfa.aer.ad Amlodipine Besylate 5 mg [Norvasc 5 mg] 5 mg PO DAILY 10 Days #10 tablet Azithromycin 250 mg [Zithromax 250 MG TABLET] 250 mg PO ZPACK #6 tablet HydrALAzine HCL 25 MG TAB [Apresoline 25 MG TABLET] 50 mg PO BID #40 tablet Hydrocodone Bit/Acetaminophen [Hydrocodone-Acetaminophen Soln] 10 ml PO Q6H # 120 ml Prednisone 10 mg [Deltasone 10 mg] 10 mg PO TID #12 tablet Spironolactone 25 mg [Aldactone 25 MG] 25 mg PO DAILY #10 tablet
[2018-03-10] MEDS ORDERED: Catapres 0.1 MG PO ONE ×2 (15:28→16:22)
[2018-03-10] MEDS ORDERED: DELTASONE 10 MG PO ONE (15:29)
[2018-03-10] MEDS ORDERED: DUONEB 0.5-3 MG/3 ml Neb IH ONE ×2 (15:38)
[2018-03-10] MEDS ORDERED: DELTASONE 20 MG ONE (15:41)
[2018-03-10] MEDS ORDERED: Catapres 0.1 MG ONE ×2 (15:41→16:26)
[2018-03-10 16:16] VITALS: O2SAT 98
[2018-03-10 16:21] VITALS: PULSE 75
[2018-03-10] MEDS ORDERED: Rocephin 1000 MG INJ IM ONE (16:22)
[2018-03-10] MEDS ORDERED: Rocephin 1000 MG INJ ONE (16:27)
[2018-03-10] MEDS ORDERED: XYLOCAINE 1% HCL 20 ML MDV ONE (16:29)
[2018-03-10 16:50] VITALS: BP 152/82
== END 2018-03-10 16:52 | disposition home or self-care (01) ==
LOC: ED 14:44
DX: J40 Bronchitis, not specified as acute or chronic (principal); J32.9 Chronic sinusitis, unspecified; I10 Essential (primary) hypertension; J44.9 Chronic obstructive pulmonary disease, unspecified; K21.9 Gastro-esophageal reflux disease without esophagitis
CPT/HCPCS: 94150; 94640; 96372; 99284; J0696; A9270-GY

== ENCOUNTER 2018-09-01 13:44 | Emergency (ER) | payer MEDICAID, OTHER ==
[2018-09-01 14:02] VITALS: PULSE 78
--- NOTE | 2018-09-01 14:16 | ERPHSYRPT ---
- History of Present Illness Time Seen by Provider: 09/01/18 14:08 Source: patient Exam Limitations: no limitations Patient Subjective Stated Complaint: nose stopped up, coughing, aching Triage Nursing Assessment: Pt c/o of stuffy nose, cough, body aches since yesterday, BP 220/95, pt reports small amounts of thick yellow sputum, lungs clear, smoker, afebrile, denies pain, doesn't appear to be in any distress Physician History: 63 y/o white female presents with nasal congestion and coughing for one day. yellow sputum present. pt is a smoker. pts grandson with similar sx. Timing/Duration: yesterday Cough Quality/Degree: mild, productive cough (yellow sputum) Possible Cause: occasional episodes Modifying Factors: Improves With: coughing Associated Symptoms: cough, nasal congestion, nasal drainage, No fever, No chills, No chest pain/soreness Allergies/Adverse Reactions: codeine [Codeine] Allergy (Mild, Verified 09/01/18 14:02) Hives hives with itching reported by pt. Hx Tetanus, Diphtheria Vaccination/Date Given: Yes Hx Influenza Vaccination/Date Given: Yes Hx Pneumococcal Vaccination/Date Given: No - Review of Systems Constitutional: No Symptoms Eyes: No Symptoms Ears, Nose, & Throat: Nose Congestion Respiratory: Cough, No Dyspnea, No Stridor, No Wheezing Cardiac: No Chest Pain, No Palpitations, No Syncope Abdominal/Gastrointestinal: No Symptoms, No Abdominal Pain, No Nausea, No Vomiting, No Diarrhea Genitourinary Symptoms: No Symptoms Musculoskeletal: No Symptoms Skin: No Symptoms Neurological: No Symptoms Psychological: No Symptoms Endocrine: No Symptoms Hematologic/Lymphatic: No Symptoms Immunological/Allergic: No Symptoms All Other Systems: Reviewed and Negative - Past Medical History Pertinent Past Medical History: Yes Neurological History: No Pertinent History ENT History: No Pertinent History Cardiac History: Hypertension Respiratory History: Bronchitis, COPD Endocrine Medical History: No Pertinent History Musculoskeletal History: Other GI Medical History: GERD History: No Pertinent History Psycho-Social History: No Pertinent History Female Reproductive Disorders: No Pertinent History Other Medical History: Bone spurs in the L foot, hiatial hernia - Past Surgical History Past Surgical History: Yes Neuro Surgical History: No Pertinent History Cardiac: Cardiac Catheterization Respiratory: No Pertinent History Gastrointestinal: No Pertinent History Genitourinary: No Pertinent History Musculoskeletal: Orthopedic Surgery Female Surgical History: Hysterectomy Other Surgical History: HEART CATH, foot - Social History Smoking Status: Current every day smoker How long have you smoked: 20 years Exposure to second hand smoke: Yes Alcohol Use: None Drug Use: none Patient Lives Alone: No Significant Family History: heart disease, hypertension - Female History Hx Now: No - Nursing Vital Signs Nursing Vital Signs: Initial Vital Signs Temperature 98.5 F 09/01/18 13:49 Pulse Rate 78 09/01/18 13:49 Respiratory Rate 18 09/01/18 13:49 Blood Pressure 220/95 09/01/18 13:49 O2 Sat by Pulse Oximetry 98 09/01/18 13:49 Pain Scale Pain Intensity 0 - Physical Exam General Appearance: no apparent distress, alert Eye Exam: PERRL/EOMI Ears, Nose, Throat Exam: normal ENT inspection, TMs normal, pharynx normal, moist mucous membranes Neck Exam: normal inspection, non-tender, supple, full range of motion Respiratory Exam: normal breath sounds, lungs clear, airway intact, No chest tenderness, No respiratory distress, No accessory muscle use, No rhonchi, No wheezing, No stridor Cardiovascular Exam: regular rate/rhythm, normal heart sounds, normal peripheral pulses Gastrointestinal/Abdomen Exam: soft, normal bowel sounds, No tenderness, No guarding, No rebound Pelvic Exam: not done Rectal Exam: not done Back Exam: normal inspection, normal range of motion, No CVA tenderness, No vertebral tenderness Extremity Exam: normal inspection, normal range of motion, pelvis stable Neurologic Exam: alert, oriented x 3, cooperative, 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 we discussed her high bp issues. she states it is high because she is nervous today. she controls it with meditation and biofeedback. she does not want medication today. Blood Culture(s) Obtained: No Antibiotics given: No Counseled pt/family regarding: diagnosis, need for follow-up - Departure Time of Disposition: 15:10 Departure Disposition: Home Clinical Impression: Bronchitis, Hypertension Condition: Stable Critical Care Time: No Referrals: LANA MENON MD [Primary Care Provider] - Additional Instructions: drink plenty of fluids. follow up with primary doctor tomorrow to address smoking, high blood pressure and weight issues. continue your nebulizer treatments every 4 hours scheduled for next 48 hours. Prescriptions: Azithromycin 250 mg [Zithromax 250 MG TABLET] 250 mg PO ZPACK #6 tablet Prednisone 10 mg [Deltasone 10 mg] 10 mg PO TID #12 tablet
[2018-09-01 15:21] VITALS: BP 195/103; O2SAT 97
== END 2018-09-01 15:22 | disposition home or self-care (01) ==
LOC: ED 13:44
DX: J40 Bronchitis, not specified as acute or chronic (principal); I10 Essential (primary) hypertension; J44.9 Chronic obstructive pulmonary disease, unspecified
CPT/HCPCS: 99283

== ENCOUNTER 2018-12-28 10:50 | Emergency (ER) | payer SELFPAY ==
[2018-12-28 11:06] VITALS: O2SAT 96
--- NOTE | 2018-12-28 11:17 | ERPHSYRPT ---
- History of Present Illness Time Seen by Provider: 12/28/18 11:14 Source: patient Exam Limitations: no limitations Patient Subjective Stated Complaint: coughing for a week Triage Nursing Assessment: Pt walked into the ER coughing, BP 208/89, R 26, pulses normal, hard time catching breath when coughs Physician History: 63-year-old white female with history of COPD, high blood pressure, bronchitis, GERD, hiatal hernia Arrives with complaint of coughing for a week. She denies any fevers states she is coughing up green sputum. Denies any chest pain. Past medical history includes COPD, high blood pressure, bronchitis, GERD, bone spurs to the left foot, hiatal hernia. Past surgical history includes cardiac catheter, orthopedic surgery, hysterectomy, heart catheter, foot surgery. Social history positive for tobacco use Timing/Duration: week(s) (oone week) Cough Quality/Degree: productive cough (productive of green sputum) Possible Cause: occasional episodes Modifying Factors: Improves With: albuterol inhaler (use inhalers at home) Associated Symptoms: cough, other (occasional pain right arm with movement), No fever, No chills, No chest pain/soreness, No dizziness, No earache, No facial pain, No headache, No lightheadedness, No muscle aches, No nasal congestion, No nasal drainage, No shortness of breath, No sinus infection, No sore throat, No wheezing International travel in last 2 weeks: No Allergies/Adverse Reactions: codeine [Codeine] Allergy (Mild, Verified 12/28/18 11:06) Hives hives with itching reported by pt. Home Medications: Hydrochlorothiazide 25 mg [hydroDIURIL 25 MG] 25 mg PO DAILY 12/28/18 [ History] Loratadine 10 mg PO DAILY 12/28/18 [History] Hx Tetanus, Diphtheria Vaccination/Date Given: Yes Hx Influenza Vaccination/Date Given: Yes Hx Pneumococcal Vaccination/Date Given: No - Review of Systems Constitutional: No Fever, No Chills Eyes: No Symptoms Ears, Nose, & Throat: No Symptoms Respiratory: Cough, Dyspnea, No Cyanosis, No Dyspnea on Exertion (ZHOU), No Stridor, No Wheezing Cardiac: No Chest Pain, No Edema, No Syncope Abdominal/Gastrointestinal: No Abdominal Pain, No Nausea, No Vomiting, No Diarrhea Genitourinary Symptoms: No Dysuria Musculoskeletal: Other (occasional pain right arm with movement), No Back Pain, No Neck Pain, No Deformity, No Fall, No Injury, No Joint Redness, No Joint Pain , No Joint Swelling Skin: No Rash Neurological: No Dizziness, No Focal Weakness, No Sensory Changes Psychological: No Symptoms Endocrine: No Symptoms All Other Systems: Reviewed and Negative - Past Medical History Pertinent Past Medical History: Yes Neurological History: No Pertinent History ENT History: No Pertinent History Cardiac History: Hypertension Respiratory History: Bronchitis, COPD Endocrine Medical History: No Pertinent History Musculoskeletal History: Other GI Medical History: GERD History: No Pertinent History Psycho-Social History: No Pertinent History Female Reproductive Disorders: No Pertinent History Other Medical History: Bone spurs in the L foot, hiatial hernia - Past Surgical History Past Surgical History: Yes Neuro Surgical History: No Pertinent History Cardiac: Cardiac Catheterization Respiratory: No Pertinent History Gastrointestinal: No Pertinent History Genitourinary: No Pertinent History Musculoskeletal: Orthopedic Surgery Female Surgical History: Hysterectomy Other Surgical History: HEART CATH, foot - Social History Smoking Status: Current every day smoker How long have you smoked: 20 years Exposure to second hand smoke: Yes Alcohol Use: None Drug Use: none Patient Lives Alone: No Significant Family History: heart disease, hypertension - Female History Hx Now: No - Nursing Vital Signs Nursing Vital Signs: Initial Vital Signs Temperature 98.3 F 12/28/18 10:53 Pulse Rate 82 12/28/18 10:53 Respiratory Rate 26 H 12/28/18 10:53 Blood Pressure 208/89 12/28/18 10:53 O2 Sat by Pulse Oximetry 96 12/28/18 10:53 Pain Scale Pain Intensity 0 - Physical Exam General Appearance: no apparent distress, alert Eye Exam: PERRL/EOMI, eyes nml inspection Ears, Nose, Throat Exam: normal ENT inspection, TMs normal, pharynx normal, moist mucous membranes Neck Exam: normal inspection, non-tender, supple, full range of motion Respiratory Exam: normal breath sounds, lungs clear, No respiratory distress Cardiovascular Exam: regular rate/rhythm, normal heart sounds, capillary refill <2 sec Gastrointestinal/Abdomen Exam: soft, No tenderness Back Exam: normal inspection, No CVA tenderness, No vertebral tenderness Extremity Exam: normal inspection, normal range of motion Neurologic Exam: alert, oriented x 3, cooperative, manager of enterprise II-XII nml as tested, normal mood/affect, sensation nml, No motor deficits Skin Exam: normal color, warm, dry, No rash Lymphatic Exam: No adenopathy SpO2 Interpretation: normal (96%) SpO2: 96 - Course Nursing assessment & vital signs reviewed: Yes - Radiology Exams Chest X-ray Interpretation: Discussed w/ radiologist (chest x-ray: Hyperinflated otherwise no acute disease process) Ordered Tests: Active Orders 24 hr Category Date Time Status CHEST 2 VIEWS (PA AND LAT) Stat Exams 12/28/18 11:14 Taken Medication Summary Discontinued Medications Generic Name Dose Route Start Last Admin Trade Name Freq PRN Reason Stop Dose Admin Albuterol/Ipratropium 3 ml 12/28/18 11:39 12/28/18 11:58 Duoneb 0.5-3 Mg/3 Ml Neb IH 12/28/18 11:40 3 ml STAT ONE Administration Methylprednisolone Sodium Succinate 125 mg 12/28/18 11:39 12/28/18 11:49 Solu-Medrol 125 Mg IM 12/28/18 11:40 125 mg STAT ONE Administration - Progress Progress: improved Air Movement: fair Progress Note: 12/28/18 11:17 63-year-old white female with history of COPD arrives with coughing for one week. She denies any chest pain no fever she is coughing green sputum she states she' s been using albuterol at home. Blood pressure initially markedly elevated now will 183/98. Will go ahead and obtain chest x-ray on this patient . Patient has been seen in the past and responded with prednisone and Zithromax. Patient does complain of some pain in her right arm with movement at times currently moving around without any problem full range of motion of extremities pulses equal and symmetrical two over four bilaterally Patient does continue to smoke 12/28/18 11:40 Patient's chest x-ray remarkable for being hyperinflated otherwise no acute disease process noted. Will give patient duo neb treatment Solu-Medrol 125 mg IM plan home with Zithromax and tapering dose of prednisone. Patient will be utilized not to smoke. Use her inhaler. - Departure Departure Disposition: Home Clinical Impression: COPD exacerbation, Cough Condition: Fair Critical Care Time: No Referrals: LANA MENON MD [Primary Care Provider] - Additional Instructions: Return home. Plenty of fluids. Stop smoking. Use your albuterol inhaler as prescribed by your family . Zithromax as prescribed. Tapering dose of prednisone as prescribed. Followup with your family symptoms are worse, no better 48 hours, or persist longer than one week. Return for acute distress or for severe symptoms. Prescriptions: Albuterol 2.5 mg/3 ml Neb [Proventil 2.5 mg/3 ml Neb] 2.5 mg IH Q4-6HPRN PRN #60 neb PRN Reason: sob/wheezing Azithromycin 250 mg [Zithromax 250 MG TABLET] 0 mg PO ZPACK #6 tablet
[2018-12-28] MEDS ORDERED: solu-MEDROL 125 MG IM ONE (11:39)
[2018-12-28] MEDS ORDERED: DUONEB 0.5-3 MG/3 ml Neb IH ONE (11:39)
[2018-12-28 11:51] VITALS: BP 165/84
[2018-12-28 12:13] VITALS: PULSE 78
--- NOTE | 2018-12-28 12:25 | XRAY ---
Indication: Cough. Comparison: October 19, 2018. PA/lateral chest again hyperinflated and clear. Heart is not enlarged. Bony thorax intact again with mild degenerative changes and scoliosis. No new/acute findings. Impression: Stable nonacute hyperinflated chest.
== END 2018-12-28 12:23 | disposition home or self-care (01) ==
LOC: ED 10:50
DX: J44.1 Chronic obstructive pulmonary disease with (acute) exacerbation (principal); R05 Cough; I10 Essential (primary) hypertension; K21.9 Gastro-esophageal reflux disease without esophagitis; F17.200 Nicotine dependence, unspecified, uncomplicated; Z79.899 Other long term (current) drug therapy
CPT/HCPCS: 71046; 94640; 96372; 99284; J2930; A9270-GY

== ENCOUNTER 2019-01-06 08:21 | Emergency (ER) | payer SELFPAY ==
[2019-01-06] MEDS ORDERED: solu-MEDROL 125 MG IV ONE (08:38)
[2019-01-06] MEDS ORDERED: DUONEB 0.5-3 MG/3 ml Neb IH ONE ×4 (08:38→11:08)
--- NOTE | 2019-01-06 08:44 | ERPHSYRPT ---
- History of Present Illness Time Seen by Provider: 01/06/19 08:32 Source: patient Exam Limitations: no limitations Physician History: Pt has been c/o productive cough, yellowish green phlegm x 2 weeks. She was seen here 9 days ago, started on PO Zithromax, and Medrol, she completed yesterday. She is still c/o coughing, wheezing, increasing SOB, denies chest pain, only rib soreness upon coughing, no abdominal pain, nausea, vomiting, fever, chills, other complaints. She is every day smoker, denies cardiac history. She admits not taking her HCTZ for about 3 weeks, since she ran out. Timing/Duration: week(s) (2) Activities at Onset: none Severity of Dyspnea-Max: moderate Severity of Dyspnea-Current: moderate Possible Cause: frequent episodes Modifying Factors: Improves With: albuterol inhaler, albuterol nebulizer Associated Symptoms: cough, wheezing Allergies/Adverse Reactions: codeine [Codeine] Allergy (Mild, Verified 12/28/18 11:06) Hives hives with itching reported by pt. Home Medications: Hydrochlorothiazide 25 mg [hydroDIURIL 25 MG] 25 mg PO DAILY 12/28/18 [ History] Loratadine 10 mg PO DAILY 12/28/18 [History] Hx Tetanus, Diphtheria Vaccination/Date Given: Yes Hx Influenza Vaccination/Date Given: Yes Hx Pneumococcal Vaccination/Date Given: No - Review of Systems Constitutional: No Symptoms Ears, Nose, & Throat: No Symptoms Respiratory: Cough, Dyspnea, Wheezing Cardiac: No Symptoms Abdominal/Gastrointestinal: No Symptoms Genitourinary Symptoms: No Symptoms Musculoskeletal: No Symptoms Skin: No Symptoms Neurological: No Symptoms All Other Systems: Reviewed and Negative - Past Medical History Pertinent Past Medical History: Yes Neurological History: No Pertinent History ENT History: No Pertinent History Cardiac History: Hypertension Respiratory History: Bronchitis, COPD Endocrine Medical History: No Pertinent History Musculoskeletal History: Other GI Medical History: GERD History: No Pertinent History Psycho-Social History: No Pertinent History Female Reproductive Disorders: No Pertinent History Other Medical History: Bone spurs in the L foot, hiatial hernia - Past Surgical History Past Surgical History: Yes Neuro Surgical History: No Pertinent History Cardiac: Cardiac Catheterization Respiratory: No Pertinent History Gastrointestinal: No Pertinent History Genitourinary: No Pertinent History Musculoskeletal: Orthopedic Surgery Female Surgical History: Hysterectomy Other Surgical History: HEART CATH, foot - Social History Smoking Status: Current every day smoker How long have you smoked: 20 years Exposure to second hand smoke: Yes Alcohol Use: None Drug Use: none Patient Lives Alone: No Significant Family History: heart disease, hypertension - Nursing Vital Signs Nursing Vital Signs: Initial Vital Signs Temperature 98.8 F 01/06/19 08:21 Pulse Rate 78 01/06/19 08:21 Blood Pressure 210/132 01/06/19 08:21 O2 Sat by Pulse Oximetry 96 01/06/19 08:21 Pain Scale Pain Intensity 5 - Physical Exam General Appearance: no apparent distress Eye Exam: eyes nml inspection Ears, Nose, Throat Exam: normal ENT inspection, normal pharynx Neck Exam: normal inspection, non-tender, supple, No JVD, No lymphadenopathy (R) , No lymphadenopathy (L) Respiratory Exam: rhonchi, wheezing (diffuse, both sides), No chest tenderness, No respiratory distress Cardiovascular/Chest Exam: normal heart sounds, regular rate/rhythm, normal peripheral pulses, No murmur, No edema, No JVD Abdominal/Gastrointestinal Exam: soft, normal bowel sounds, No tenderness Extremity Exam: non-tender, no calf tenderness, No pedal edema, No jose eduardo's sign Peripheral Pulses Exam: dorsalis-pedis (R): 2+, dorsalis-pedis (L): 2+ Neurologic Exam: alert, oriented x 3, normal mood/affect Skin Exam: normal color, warm, dry, No rash, No petechiae, No cyanosis, No diaphoresis Lymphatic Exam: No adenopathy SpO2 Interpretation: normal O2 Delivery: Room Air - Course Nursing assessment & vital signs reviewed: Yes EKG Interpreted by Me: RATE (77/min), NORMAL AXIS, NORMAL INTERVALS, NORMAL QRS , NORMAL ST-T, Other (repeat Ekg: unchanged) - Radiology Exams Chest X-ray Interpretation: Reviewed by me, Negative Ordered Tests: Active Orders 24 hr Category Date Time Status Glass Frame Fitter STAT Care 01/06/19 08:38 Active EKG-ER Only STAT Care 01/06/19 08:37 Active EKG-ER Only STAT Care 01/06/19 11:45 Active IV Insertion STAT Care 01/06/19 08:37 Active CHEST 2 VIEWS (PA AND LAT) Stat Exams 01/06/19 08:37 Completed BLOOD CULTURE Stat Lab 01/06/19 09:05 Received CBC W DIFF Stat Lab 01/06/19 08:55 Completed CK-Creatinine Phosphokinase Stat Lab 01/06/19 08:55 Completed CMP Stat Lab 01/06/19 08:55 Completed D-DIMER QUANTITATION Stat Lab 01/06/19 09:38 Completed Lactic Acid Stat Lab 01/06/19 09:00 Completed MAGNESIUM Stat Lab 01/06/19 08:55 Completed Manual Differential NC Stat Lab 01/06/19 08:55 Completed NT PRO BNP Stat Lab 01/06/19 08:55 Completed PROTIME WITH INR Stat Lab 01/06/19 08:55 Completed PTT Stat Lab 01/06/19 08:55 Completed TROPONIN Q3H Lab 01/06/19 08:55 Completed TROPONIN Q3H Lab 01/06/19 11:35 Completed TROPONIN Q3H Lab 01/06/19 14:45 Ordered TROPONIN Q3H Lab 01/06/19 17:45 Ordered TROPONIN Q3H Lab 01/06/19 20:45 Ordered TROPONIN Q3H Lab 01/06/19 23:45 Ordered Peak Expiratory Flow Rate ONCE RT 01/06/19 08:54 Active Respiratory Therapy Assessment DAILY RT 01/06/19 08:53 Active Medication Summary Discontinued Medications Generic Name Dose Route Start Last Admin Trade Name Freq PRN Reason Stop Dose Admin Albuterol/Ipratropium 3 ml 01/06/19 08:38 01/06/19 08:51 Duoneb 0.5-3 Mg/3 Ml Neb IH 01/06/19 08:39 3 ml STAT ONE Administration Albuterol/Ipratropium Confirm 01/06/19 08:43 Duoneb 0.5-3 Mg/3 Ml Neb Administered 01/06/19 08:44 Dose 3 ml IH .STK-MED ONE Albuterol/Ipratropium 3 ml 01/06/19 11:01 01/06/19 11:09 Duoneb 0.5-3 Mg/3 Ml Neb IH 01/06/19 11:02 3 ml STAT ONE Administration Albuterol/Ipratropium Confirm 01/06/19 11:08 Duoneb 0.5-3 Mg/3 Ml Neb Administered 01/06/19 11:09 Dose 3 ml IH .STK-MED ONE Clonidine 0.1 mg 01/06/19 09:17 01/06/19 09:38 Catapres 0.1 Mg PO 01/06/19 09:18 0.1 mg STAT ONE Administration Clonidine Confirm 01/06/19 09:38 Catapres 0.1 Mg Administered 01/06/19 09:39 Dose 0.1 mg .ROUTE .STK-MED ONE Guaifenesin/Dextromethorphan 10 ml 01/06/19 11:02 01/06/19 11:18 Robitussin-Dm Syrup PO 01/06/19 11:03 10 ml STAT ONE Administration Methylprednisolone Sodium Succinate 125 mg 01/06/19 08:38 01/06/19 09:02 Solu-Medrol 125 Mg IV 01/06/19 08:39 125 mg STAT ONE Administration Methylprednisolone Sodium Succinate Confirm 01/06/19 08:58 Solu-Medrol 125 Mg Administered 01/06/19 08:59 Dose 125 mg .ROUTE .STK-MED ONE Lab/Rad Data: Laboratory Result Diagrams 01/06/19 08:55 01/06/19 08:55 Laboratory Results 01/06/19 01/06/19 01/06/19 Range/Units 11:35 09:38 09:00 WBC (4.0-10.5) K/mm3 RBC (4.1-5.4) M/mm3 Hgb (12.0-16.0) gm/dl Hct (35-47) % MCV (78-100) fl MCH (26-32) pg MCHC (32-36) g/dl RDW (11.5-14.0) % Plt Count (150-450) K/mm3 MPV (6-9.5) fl Segmented Neutrophils (36.0-66.0) % Lymphocytes (Manual) (24-44) % Monocytes (Manual) (0.0-12.0) % Eosinophils (Manual) (0.00-3.0) % Toxic Granulation Platelet Estimate (NORMAL) RBC Morphology Anisocytosis PT (9.95-12.35) SECONDS INR (0.8-3.0) APTT (25.3-37.0) SECONDS D-Dimer 262 (215-500) ng/mL Sodium (137-145) mmol/L Potassium (3.5-5.1) mmol/L Chloride (98-107) mmol/L Carbon Dioxide (22-30) mmol/L Anion Gap (5-15) MEQ/L BUN (7-17) mg/dL Creatinine (0.52-1.04) mg/dL Estimated GFR ML/MIN Glucose (74-106) mg/dL Lactic Acid 1.3 (0.4-2.0) Calcium (8.4-10.2) mg/dL Magnesium (1.6-2.3) mg/dL Total Bilirubin (0.2-1.3) mg/dL AST (14-36) U/L ALT (0-35) U/L Alkaline Phosphatase (38-126) U/L Creatine Kinase (30-135) U/L Troponin I < 0.012 (0.000-0.034) ng/mL NT-Pro-B Natriuret Pep (0-900) pg/mL Serum Total Protein (6.3-8.2) g/dL Albumin (3.5-5.0) g/dL 01/06/19 01/06/19 01/06/19 Range/Units 08:55 08:55 08:55 WBC (4.0-10.5) K/mm3 RBC (4.1-5.4) M/mm3 Hgb (12.0-16.0) gm/dl Hct (35-47) % MCV (78-100) fl MCH (26-32) pg MCHC (32-36) g/dl RDW (11.5-14.0) % Plt Count (150-450) K/mm3 MPV (6-9.5) fl Segmented Neutrophils (36.0-66.0) % Lymphocytes (Manual) (24-44) % Monocytes (Manual) (0.0-12.0) % Eosinophils (Manual) (0.00-3.0) % Toxic Granulation Platelet Estimate (NORMAL) RBC Morphology Anisocytosis PT 10.6 (9.95-12.35) SECONDS INR 0.94 (0.8-3.0) APTT 28.5 (25.3-37.0) SECONDS D-Dimer (215-500) ng/mL Sodium 141 (137-145) mmol/L Potassium 3.8 (3.5-5.1) mmol/L Chloride 103 (98-107) mmol/L Carbon Dioxide 30 (22-30) mmol/L Anion Gap 11.4 (5-15) MEQ/L BUN 15 (7-17) mg/dL Creatinine 0.85 (0.52-1.04) mg/dL Estimated GFR > 60.0 ML/MIN Glucose 116 H (74-106) mg/dL Lactic Acid (0.4-2.0) Calcium 9.1 (8.4-10.2) mg/dL Magnesium 2.1 (1.6-2.3) mg/dL Total Bilirubin 0.70 (0.2-1.3) mg/dL AST 17 (14-36) U/L ALT 20 (0-35) U/L Alkaline Phosphatase 58 (38-126) U/L Creatine Kinase 104 (30-135) U/L Troponin I < 0.012 (0.000-0.034) ng/mL NT-Pro-B Natriuret Pep 249 (0-900) pg/mL Serum Total Protein 6.8 (6.3-8.2) g/dL Albumin 4.2 (3.5-5.0) g/dL 01/06/19 Range/Units 08:55 WBC 16.3 H (4.0-10.5) K/mm3 RBC 4.64 (4.1-5.4) M/mm3 Hgb 14.7 (12.0-16.0) gm/dl Hct 44.0 (35-47) % MCV 94.8 (78-100) fl MCH 31.7 (26-32) pg MCHC 33.4 (32-36) g/dl RDW 14.5 H (11.5-14.0) % Plt Count 300 (150-450) K/mm3 MPV 9.2 (6-9.5) fl Segmented Neutrophils 78 H (36.0-66.0) % Lymphocytes (Manual) 14 L (24-44) % Monocytes (Manual) 4 (0.0-12.0) % Eosinophils (Manual) 4 H (0.00-3.0) % Toxic Granulation 1+ Platelet Estimate NORMAL (NORMAL) RBC Morphology ABNORMAL Anisocytosis 1+ PT (9.95-12.35) SECONDS INR (0.8-3.0) APTT (25.3-37.0) SECONDS D-Dimer (215-500) ng/mL Sodium (137-145) mmol/L Potassium (3.5-5.1) mmol/L Chloride (98-107) mmol/L Carbon Dioxide (22-30) mmol/L Anion Gap (5-15) MEQ/L BUN (7-17) mg/dL Creatinine (0.52-1.04) mg/dL Estimated GFR ML/MIN Glucose (74-106) mg/dL Lactic Acid (0.4-2.0) Calcium (8.4-10.2) mg/dL Magnesium (1.6-2.3) mg/dL Total Bilirubin (0.2-1.3) mg/dL AST (14-36) U/L ALT (0-35) U/L Alkaline Phosphatase (38-126) U/L Creatine Kinase (30-135) U/L Troponin I (0.000-0.034) ng/mL NT-Pro-B Natriuret Pep (0-900) pg/mL Serum Total Protein (6.3-8.2) g/dL Albumin (3.5-5.0) g/dL - Progress Progress: improved Air Movement: good Progress Note: 01/06/19 12:26 Pt improved after Duoneb x2 and Solu Medrol 125 mg IV, Robitussin DM, no fever, or severe pain, difficulty breathing, second troponin is negative, her result were all reviewed and discussed with her, will discharge her on PO Levaquin, Zyrtec and Robitussin DM given, advised to rest x 2-3 days, drink plenty of fluids, and follow up with her physician in 2-3 days. Blood Culture(s) Obtained: Yes Antibiotics given: Yes (Levaquin PO) Counseled pt/family regarding: lab results, diagnosis, need for follow-up, rad results - Departure Departure Disposition: Home Clinical Impression: COPD (chronic obstructive pulmonary disease) with acute bronchitis Hypertension Qualifiers: Hypertension type: unspecified Qualified Code(s): I10 - Essential (primary) hypertension Condition: Stable Critical Care Time: No Referrals: LANA MENON MD [Primary Care Provider] - Instructions: Chronic Obstructive Pulmonary Disease, Acute Bronchitis, Adult ( DC), High Blood Pressure in Adults Additional Instructions: Rest x 2-3 days, drink plenty of fluids, and follow up with your physician in 2 -3 days, return if severe shortness of breath, chest pain, vomiting, fever> 102 F, or blood pressure > 200/120! Prescriptions: Albuterol Sulfate [Albuterol Sulfate Hfa] 8.5 gm IH Q4H PRN #1 [id number] PRN Reason: Shortness Of Breath/Wheezing Hydrochlorothiazide 25 mg [hydroDIURIL 25 MG] 25 mg PO DAILY #15 tablet Levofloxacin [Levaquin] 500 mg PO DAILY #7 tablet
[2019-01-06] MEDS ORDERED: solu-MEDROL 125 MG ONE (08:58)
--- NOTE | 2019-01-06 09:11 | XRAY ---
Indication: Cough. Comparison: December 28, 2018. PA/lateral chest again hyperinflated and clear. Heart and mediastinal structures within normal limits. No new/acute findings.
[2019-01-06 09:17] LABS: Hemoglobin 14.7 gm/dl (12.0-16.0); Mean Cell Volume 94.8 fl (78-100); Mean Corpuscular Hemoglobin 31.7 pg (26-32); Mean Corpuscular Hgb Concent. 33.4 g/dl (32-36); Mean Platelet Volume 9.2 fl (6-9.5); Platelet Count 300 K/mm3 (150-450); Red Blood Count 4.64 M/mm3 (4.1-5.4); Red Cell Distribution Width 14.5 % (11.5-14.0); White Blood Count 16.3 K/mm3 (4.0-10.5)
[2019-01-06] MEDS ORDERED: Catapres 0.1 MG PO ONE (09:17)
[2019-01-06] MEDS ORDERED: Catapres 0.1 MG ONE (09:38)
[2019-01-06 09:41] LABS: ANISOCYTOSIS 1+; Eosinophil 4 % (0.00-3.0); Lymphocytes 14 % (24-44); Monocyte 4 % (0.0-12.0); Neutrophils 78 % (36.0-66.0); Total Cells Counted 100; Toxic Granulation 1+
[2019-01-06 09:42] LABS: Platelet Estimate NORMAL (NORMAL)
[2019-01-06 09:46] LABS: INR 0.94 (0.8-3.0); PROTIME 10.6 SECONDS (9.95-12.35)
[2019-01-06 09:49] LABS: PTT 28.5 SECONDS (25.3-37.0)
[2019-01-06 10:03] LABS: ALBUMIN 4.2 g/dL (3.5-5.0); ALKALINE PHOSPHATASE 58 U/L (38-126); ANION GAP 11.4 MEQ/L (5-15); BLOOD UREA NITROGEN 15 mg/dL (7-17); CHLORIDE 103 mmol/L (98-107); CK-Creatinine Phosphokinase 104 U/L (30-135); Calcium 9.1 mg/dL (8.4-10.2); Carbon Dioxide 30 mmol/L (22-30); Creatinine 1 0.85 mg/dL (0.52-1.04); Glucose 116 mg/dL (74-106); MAGNESIUM 2.1 mg/dL (1.6-2.3); Potassium 3.8 mmol/L (3.5-5.1); SGOT/AST 17 U/L (14-36); SGPT/ALT 20 U/L (0-35); SODIUM 141 mmol/L (137-145); Total Protein 6.8 g/dL (6.3-8.2)
[2019-01-06] MEDS ORDERED: Robitussin-Dm Syrup PO ONE (11:02)
[2019-01-06 11:24] LABS: NT PRO BNP 249 pg/mL (0-900)
[2019-01-06 12:57] VITALS: BP 162/94; PULSE 78; O2SAT 96
== END 2019-01-06 13:06 | disposition home or self-care (01) ==
LOC: ED 08:21
DX: J44.9 Chronic obstructive pulmonary disease, unspecified (principal); J20.9 Acute bronchitis, unspecified; I10 Essential (primary) hypertension; Z72.0 Tobacco use
CPT/HCPCS: 36000; 36415; 71046; 80053; 82550; 83605; 83735; 83880; 84484; 85025; 85379; 85610; 85730; 87040; 93005; 93041; 94150; 94640; 96374; 99284; J2930; A9270-GY

== ENCOUNTER 2019-08-16 16:54 | Emergency (ER) | payer MEDICAID ==
--- NOTE | 2019-08-16 17:16 | ERPHSYRPT ---
- History of Present Illness Time Seen by Provider: 08/16/19 17:16 Source: patient Exam Limitations: no limitations Patient Subjective Stated Complaint: Cough/vomiting Triage Nursing Assessment: Patient ambulated back to ED and transferred self to bed. Patient A+O X3. Patient's skin pink, warm and dry. Patient states she has been coughing and vomiting since Thursday. Patient states her entire body aches 10 /10. Patient complains of non productive dry hacky cough. Patient's lungs clear ap marv. Physician History: The patient is a 64-year-old female with a past medical history significant for hypertension presents with a chief complaint of myalgias, subjective fever, chills, dry cough, rhinorrhea, sore throat. Her symptoms started last Wednesday, August 14, 2019. She works at a [employer] nightly and initially started to experience a "tingling" sensation in the back of her throat that progressed to the above symptoms. Her blood pressure was noted to be significantly elevated upon arrival and she informed me that she has not taken her blood pressure medication in some time, specifically around a year she lost her medical insurance and cannot afford the medications. She reportedly has been taking Tylenol as needed for any subjective fevers aches or pains. She also complained of some nausea but denied vomiting, diarrhea, abdominal pain as well as chest pain or shortness of breath. Of note the patient does smoke cigarettes. There was no recent travel reported as country or any recent sick contacts to her knowledge. Timing/Duration: day(s) (2) Associated Symptoms: nausea, cough, chills, headaches, malaise, other (Myalgias , sore throat, rhinorrhea), No vomiting, No abdominal pain, No shortness of breath, No chest pain Allergies/Adverse Reactions: codeine [Codeine] Allergy (Mild, Verified 08/16/19 17:00) Hives hives with itching reported by pt. Hx Tetanus, Diphtheria Vaccination/Date Given: Yes Hx Influenza Vaccination/Date Given: No Hx Pneumococcal Vaccination/Date Given: No Immunizations Up to Date: Yes - Review of Systems Constitutional: Fever, Chills Eyes: No Symptoms Ears, Nose, & Throat: No Symptoms, Nose Congestion, Throat Pain Respiratory: Cough, No Dyspnea, No Dyspnea on Exertion (ZHOU) Cardiac: No Chest Pain, No Edema, No Palpitations Abdominal/Gastrointestinal: Nausea, No Abdominal Pain Musculoskeletal: Myalgias Skin: No Symptoms Neurological: No Symptoms Psychological: No Symptoms Endocrine: No Symptoms Hematologic/Lymphatic: No Symptoms Immunological/Allergic: No Symptoms All Other Systems: Reviewed and Negative - Past Medical History Pertinent Past Medical History: Yes Neurological History: No Pertinent History ENT History: No Pertinent History Cardiac History: Hypertension Respiratory History: Bronchitis, COPD Endocrine Medical History: No Pertinent History Musculoskeletal History: Other GI Medical History: GERD History: No Pertinent History Psycho-Social History: No Pertinent History Female Reproductive Disorders: No Pertinent History Other Medical History: Bone spurs in the L foot, hiatial hernia - Past Surgical History Past Surgical History: Yes Neuro Surgical History: No Pertinent History Cardiac: Cardiac Catheterization Respiratory: No Pertinent History Gastrointestinal: No Pertinent History Genitourinary: No Pertinent History Musculoskeletal: Orthopedic Surgery Female Surgical History: Hysterectomy Other Surgical History: HEART CATH, foot - Social History Smoking Status: Current every day smoker How long have you smoked: years Exposure to second hand smoke: No Alcohol Use: None Drug Use: none Patient Lives Alone: No Significant Family History: heart disease, hypertension - Female History Hx Now: No - Nursing Vital Signs Nursing Vital Signs: Initial Vital Signs Temperature 98.7 F 08/16/19 17:00 Pulse Rate 79 08/16/19 17:00 Respiratory Rate 18 08/16/19 17:00 Blood Pressure 237/130 08/16/19 17:00 O2 Sat by Pulse Oximetry 97 08/16/19 17:00 Pain Scale Pain Intensity 6 - Physical Exam General Appearance: no apparent distress, alert Eye Exam: PERRL/EOMI, EOM palsy/anisocoria Ears, Nose, Throat Exam: moist mucous membranes, TM abnormal (R) (Mild erythema) , TM abnormal (L) (Mild erythema), No pharyngeal erythema, No tonsillar exudate Neck Exam: normal inspection, non-tender, supple, No meningismus, No JVD Respiratory Exam: normal breath sounds, lungs clear, airway intact, No chest tenderness, No respiratory distress Cardiovascular Exam: regular rate/rhythm, normal peripheral pulses, capillary refill <2 sec, No murmur, No friction rub Gastrointestinal/Abdomen Exam: soft, normal bowel sounds, No tenderness, No distention, No mass Pelvic Exam: not done Rectal Exam: deferred Back Exam: normal inspection Extremity Exam: normal inspection Neurologic Exam: alert, oriented x 3, cooperative, normal mood/affect Skin Exam: normal color, warm, dry, No rash, No petechiae SpO2 Interpretation: normal SpO2: 98 O2 Delivery: Room Air - Course Nursing assessment & vital signs reviewed: Yes EKG Interpreted by Me: Sinus Rhythm, Left Umpqua Deviation, Non-specific ST Changes, Other (Vent rate 69 bpm, WV interval 218 ms, QRS duration 84 ms, QT/ QTc 408/434 ms) - Radiology Exams Chest X-ray Interpretation: Interpreted by me, Negative Ordered Tests: Active Orders 24 hr Category Date Time Status EKG-ER Only STAT Care 08/16/19 17:35 Active CHEST 2 VIEWS (PA AND LAT) Stat Exams 08/16/19 17:34 Taken Medication Summary Discontinued Medications Generic Name Dose Route Start Last Admin Trade Name Prashanthq PRN Reason Stop Dose Admin Acetaminophen 975 mg 08/16/19 17:34 08/16/19 17:48 Tylenol 325 Mg PO 08/16/19 17:35 975 mg STAT ONE Administration Acetaminophen Confirm 08/16/19 17:47 Tylenol 325 Mg Administered 08/16/19 17:48 Dose 975 mg .ROUTE .STK-MED ONE Ondansetron HCl 4 mg 08/16/19 17:36 08/16/19 17:48 Zofran Odt 4 Mg PO 08/16/19 17:37 4 mg STAT ONE Administration Ondansetron HCl Confirm 08/16/19 17:47 Zofran Odt 4 Mg Administered 08/16/19 17:48 Dose 4 mg .ROUTE .STK-MED ONE Lab/Rad Data: Laboratory Results 08/16/19 Range/Units 17:53 Influenza Type A Ag NEGATIVE (NEGATIVE) Influenza Type B Ag POSITIVE (NEGATIVE) RSV (PCR) NEGATIVE (Negative) - Progress Progress: improved Progress Note: 08/16/19 20:49 Nontoxic in appearance. The patient presents with flu-like illness and ultimately tested positive for influenza B. CXR was obtained to r/o pneumonia, mass, and pleural effusions and were negative for such. EKG reviewed and with no evidence of acute myocardial ischemia or injury. The patient is hypertension but relatively asymptomatic from a hypertensive emergency standpoint. She did not looked surprised when I told her her systolic BP was over 200 mmHg with a diastolic just over 100. I reviewed her EMR and saw that she was prescribed amlodipine and hydralazine in the past. I'll go ahead and refill her amlodipine and instructed the patient to f/u with her PCP to have her BP rechecked before restarting the hydralazine. The patient was ultimately discharge home with with symptomatic treatment. Because the patient is outside of the 48 hr window, Tamiflu was not prescribed. Counseled pt/family regarding: lab results, diagnosis, need for follow-up, rad results - Departure Departure Disposition: Home Clinical Impression: Influenza B, Hypertension Condition: Stable Critical Care Time: No Referrals: LANA MENON MD [Primary Care Provider] - Instructions: Flu, High Blood Pressure (DC) Prescriptions: Benzonatate [Tessalon Perle] 100 mg PO [id number] PRN #30 capsule PRN Reason: Cough Albuterol 8 gm Mdi Hfa [Ventolin Hfa MDI] 90 mcg IH Q4H PRN #1 [id number] PRN Reason: Shortness Of Breath Amlodipine Besylate 5 mg [Norvasc 5 mg] 5 mg PO DAILY #30 tablet Ondansetron [Ondansetron Odt] 4 mg PO Q6-8HPRN PRN #20 tab.rapdis PRN Reason: Nausea/Vomiting
[2019-08-16] MEDS ORDERED: TYLENOL 325 MG PO ONE (17:34)
[2019-08-16] MEDS ORDERED: ZOFRAN ODT 4 MG PO ONE (17:36)
[2019-08-16] MEDS ORDERED: ZOFRAN ODT 4 MG ONE (17:47)
[2019-08-16] MEDS ORDERED: TYLENOL 325 MG ONE (17:47)
[2019-08-16 18:26] LABS: INFLUENZA A NEGATIVE (NEGATIVE); RESPIRATORY SYNCTIAL VIRUS NEGATIVE (Negative)
[2019-08-16 18:27] LABS: INFLUENZA B POSITIVE (NEGATIVE)
[2019-08-16 19:17] VITALS: BP 173/97; PULSE 67
[2019-08-16 20:54] VITALS: O2SAT 98
--- NOTE | 2019-08-17 08:44 | XRAY ---
Indication: Fever, cough, and body aches. Comparison: January 06, 2019. PA/lateral chest remains hyperinflated and clear. Heart is not enlarged. Descending aorta remains slightly tortuous. Bony thorax intact again with mild osteopenia, degenerative changes, and scoliosis. Impression: Stable nonacute chest with chronic features.
== END 2019-08-16 19:17 | disposition home or self-care (01) ==
LOC: ED 16:54
DX: J11.1 Influenza due to unidentified influenza virus with other respiratory manifestations (principal); I10 Essential (primary) hypertension
CPT/HCPCS: 71046; 87631; 93005; 99284; Q0162; A9270-GY

== ENCOUNTER 2021-06-29 06:45 | Observation (INO) | payer MEDICARE ==
[2021-06-29] MEDS ORDERED: Zithromax 500 MG/ 250 ML NaCl Premix 500 MG/250 ML IVPB IV STA (07:41)
[2021-06-29] MEDS ORDERED: Zithromax 500 MG/ 250 ML NaCl Premix 500 MG/250 ML IVPB IV ONE (07:50)
[2021-06-29] MEDS ORDERED: DECADRON 10MG INJ. ONE (07:50)
[2021-06-29] MEDS ORDERED: VENTOLIN COMMON CANISTER IH STA (07:56)
[2021-06-29] MEDS ORDERED: DECADRON 10MG INJ. IV ONE (07:56)
--- NOTE | 2021-06-29 08:00 | ERPHSYRPT ---
- History of Present Illness Time Seen by Provider: 06/29/21 07:55 Source: patient Exam Limitations: no limitations Patient Subjective Stated Complaint: pt states she was swabbed for covid on thursday, got positive result thursday. has been increasingly short of breath tonight Triage Nursing Assessment: pt alert and oriented, answers questions approp. pt ambulatory with steady gait noted. pt short of breath with exertion. insp and exp wheezes noted throughout. skin warm and dry. Physician History: 66 years old female with a history of hypertension, hyperlipidemia, congestive heart failure, tobacco abuse, chronic bronchitis presented in the ER with chief complaint of worsening cough with a positive Covid 19 outpatient. Patient reports she started to have worsening cough productive of clear to yellow sputum almost a week ago, was tested last Thursday which results positive. She has a gradual worsening of cough and shortness of breath initially with activity and now even at resting especially since last night. She was coughing so bad and could not have her breathing treatment. Patient is borderline hypoxic around 89/90% on room air, tachypneic with loud wheezing on presentation. Placed on 2 L oxygen and currently satting around 94%. Unvaccinated against COVID-19. Timing/Duration: week(s) (1), constant, gradual onset, worse Activities at Onset: activity, rest Severity of Dyspnea-Max: moderate Severity of Dyspnea-Current: moderate Possible Cause: illness exposure Modifying Factors: Worsens With: activity, coughing, deep breath, exertion Associated Symptoms: cough, chest pain/discomfort, wheezing, weakness, chills, heaviness, muscle spasms hands, painful breathing, productive cough, tightness Allergies/Adverse Reactions: codeine [Codeine] Allergy (Mild, Verified 06/29/21 06:53) Hives hives with itching reported by pt. Home Medications: Amlodipine Besylate 5 mg [Norvasc 5 mg] 5 mg PO BID 06/29/21 [History] Carvedilol 3.125 mg [Coreg 3.125 MG] 3.125 mg PO BID 06/29/21 [History] HydrALAzine HCL 25 MG TAB [Apresoline 25 MG TABLET] 25 mg PO BID 06/29/21 [History] Valsartan/Hydrochlorothiazide [Valsartan-Hctz 320-12.5 mg Tab] 1 each PO DAILY 06/29/21 [History] Hx Tetanus, Diphtheria Vaccination/Date Given: Yes Hx Influenza Vaccination/Date Given: No Hx Pneumococcal Vaccination/Date Given: No Immunizations Up to Date: Yes Travel Risk - International Travel Have you traveled outside of the country in past 3 weeks: No - Coronavirus Screening Are you exhibiting any of the following symptoms?: Yes Symptoms: Cough: New Onset, Shortness of Breath, Headaches/Body Aches/Fatigue Close contact with a COVID-19 positive Pt in past 14-21 Days: No - Vaccine Status Have you recieved a Covid-19 vaccination: No - Review of Systems Constitutional: Fever, Chills, Fatigue, Weakness Eyes: No Symptoms Ears, Nose, & Throat: Throat Swelling Respiratory: Cough, Dyspnea, Dyspnea on Exertion (ZHOU), Wheezing Cardiac: No Symptoms Abdominal/Gastrointestinal: No Symptoms Genitourinary Symptoms: No Symptoms Musculoskeletal: Myalgias Skin: No Symptoms Neurological: Headache Psychological: No Symptoms Endocrine: No Symptoms Hematologic/Lymphatic: No Symptoms Immunological/Allergic: No Symptoms - Past Medical History Pertinent Past Medical History: Yes Neurological History: No Pertinent History ENT History: No Pertinent History Cardiac History: Hypertension Respiratory History: Bronchitis, COPD Endocrine Medical History: No Pertinent History Musculoskeletal History: Other GI Medical History: GERD History: No Pertinent History Psycho-Social History: No Pertinent History Female Reproductive Disorders: No Pertinent History Other Medical History: Bone spurs in the L foot, hiatial hernia - Past Surgical History Past Surgical History: Yes Neuro Surgical History: No Pertinent History Cardiac: Cardiac Catheterization Respiratory: No Pertinent History Gastrointestinal: No Pertinent History Genitourinary: No Pertinent History Musculoskeletal: Orthopedic Surgery Female Surgical History: Hysterectomy Other Surgical History: HEART CATH, foot - Social History Smoking Status: Current every day smoker How long have you smoked: years Exposure to second hand smoke: No Alcohol Use: None Drug Use: none Patient Lives Alone: No Significant Family History: heart disease, hypertension - Nursing Vital Signs Nursing Vital Signs: Initial Vital Signs Temperature 97.0 F 06/29/21 06:55 Pulse Rate 82 06/29/21 06:55 Respiratory Rate 22 06/29/21 06:55 Blood Pressure 136/87 06/29/21 06:55 O2 Sat by Pulse Oximetry 91 L 06/29/21 06:55 Pain Scale Pain Intensity 0 - Physical Exam General Appearance: no apparent distress, alert Eye Exam: PERRL/EOMI Ears, Nose, Throat Exam: pharyngeal erythema Neck Exam: normal inspection, non-tender, supple, full range of motion Respiratory Exam: diminished breath sounds, crackles/rales, rhonchi, wheezing Cardiovascular/Chest Exam: normal heart sounds, regular rate/rhythm Abdominal/Gastrointestinal Exam: soft, No tenderness Extremity Exam: non-tender, normal range of motion Neurologic Exam: alert, oriented x 3, cooperative Skin Exam: normal color SpO2 Interpretation: O2 applied SpO2: 92 O2 Delivery: Nasal Cannula (2L) - Course EKG Interpreted by Me: RATE (80), Sinus Rhythm, NORMAL AXIS, NORMAL INTERVALS, NORMAL QRS Ordered Tests: Active Orders 24 hr Category Date Time Status Reclamation Supervisor STAT Care 06/29/21 07:42 Active EKG-ER Only STAT Care 06/29/21 07:41 Active IV Insertion STAT Care 06/29/21 07:41 Active Oxygen-ED Only Nasal Cannula 2 lpm Care 06/29/21 07:41 Active CHEST 1 VIEW (PORTABLE) Stat Exams 06/29/21 07:29 Completed CHEST WITH CONTRAST [CT] Stat Exams 06/29/21 10:04 Taken BLOOD CULTURE Stat Lab 06/29/21 07:50 Received BNP [NT PRO BNP] Stat Lab 06/29/21 07:50 Completed CBC W DIFF Stat Lab 06/29/21 07:50 Completed CMP Stat Lab 06/29/21 07:50 Completed D-DIMER QUANTITATIVE Stat Lab 06/29/21 09:21 Completed Lactic Acid Stat Lab 06/29/21 07:41 Completed MAGNESIUM Stat Lab 06/29/21 07:55 Completed Manual Differential NC Stat Lab 06/29/21 07:50 Completed TROPONIN Q3H Lab 06/29/21 07:45 Completed TROPONIN Q3H Lab 06/29/21 10:45 Completed TROPONIN Q3H Lab 06/29/21 13:45 Ordered TROPONIN Q3H Lab 06/29/21 16:45 Ordered TROPONIN Q3H Lab 06/29/21 19:45 Ordered UA W/RFX UR CULTURE Stat Lab 06/29/21 08:18 Completed Respiratory MDI STAT RT 06/29/21 07:56 Completed Respiratory Therapy Assessment DAILY RT 06/29/21 09:06 Completed Transfer Order Routine Transfer 06/29/21 Ordered Medication Summary Generic Name Dose Route Start Last Admin Trade Name Freq PRN Reason Stop Dose Admin Ceftriaxone Sodium/Dextrose 2 g in 50 mls @ 100 mls/hr 06/29/21 10:00 06/29/21 08:29 Rocephin 2 Gm-D5w 50ml Bag IV 07/02/21 09:59 Infused Q24H10 JOSAFAT Infusion Discontinued Medications Generic Name Dose Route Start Last Admin Trade Name Bijal PRN Reason Stop Dose Admin Albuterol Sulfate 4 puff 06/29/21 07:56 06/29/21 08:10 Albuterol Common Canister Inhaler IH 06/29/21 07:57 4 puff ONCE STA Administration Dexamethasone Sodium Phosphate Confirm 06/29/21 07:50 Dexamethasone Sod Phosphate 10 Mg/Ml Administered 06/29/21 07:51 Dose 10 mg .ROUTE .STK-MED ONE Dexamethasone Sodium Phosphate 6 mg 06/29/21 07:56 06/29/21 07:58 Dexamethasone Sod Phosphate 10 Mg/Ml IV 06/29/21 07:57 6 mg STAT ONE Administration Azithromycin 500 mg in 250 mls @ 250 mls/hr 06/29/21 07:41 06/29/21 09:14 Zithromax 500 Mg/ 250 Ml Nacl Premix IV 06/29/21 08:40 Infused STAT STA Infusion Azithromycin Confirm 06/29/21 07:50 Zithromax 500 Mg/ 250 Ml Nacl Premix Administered 06/29/21 07:51 Dose 500 mg in 250 mls @ ud IV .STK-MED ONE Remdesivir 200 mg/ Sodium 250 mls @ 125 mls/hr 06/29/21 10:34 06/29/21 12:09 Chloride IV 06/29/21 12:33 125 mls/hr ONCE ONE Administration Lab/Rad Data: Laboratory Result Diagrams 06/29/21 07:50 06/29/21 07:50 Laboratory Results 06/29/21 06/29/21 06/29/21 Range/Units 10:45 09: 08:18 WBC (4.0-10.5) K/mm3 RBC (4.1-5.4) M/mm3 Hgb (12.0-16.0) gm/dl Hct (35-47) % MCV (78-100) fl MCH (26-32) pg MCHC (32-36) g/dl RDW (11.5-14.0) % Plt Count (150-450) K/mm3 MPV (7.5-11.0) fl Segmented Neutrophils (36.0-66.0) % Band Neutrophils (0.0-2.0) % Lymphocytes (Manual) (24-44) % Monocytes (Manual) (0.0-12.0) % Platelet Estimate (NORMAL) RBC Morphology D-Dimer 778 H* (215-500) ng/mL Sodium (137-145) mmol/L Potassium (3.5-5.1) mmol/L Chloride (98-107) mmol/L Carbon Dioxide (22-30) mmol/L Anion Gap (5-15) MEQ/L BUN (7-17) mg/dL Creatinine (0.52-1.04) mg/dL Estimated GFR ML/MIN Glucose (74-106) mg/dL Lactic Acid (0.4-2.0) Calcium (8.4-10.2) mg/dL Magnesium (1.6-2.3) mg/dL Total Bilirubin (0.2-1.3) mg/dL AST (14-36) U/L ALT (0-35) U/L Alkaline Phosphatase (38-126) U/L Troponin I < 0.012 (0.000-0.034) ng/mL NT-Pro-B Natriuret Pep (0-900) pg/mL Serum Total Protein (6.3-8.2) g/dL Albumin (3.5-5.0) g/dL Urine Color YELLOW (YELLOW) Urine Appearance SLIGHTLY CLOUDY (CLEAR) Urine pH 6.0 (5-6) Ur Specific [place] 1.018 (1.005-1.025) Urine Protein NEGATIVE (Negative) Urine Ketones NEGATIVE (NEGATIVE) Urine Blood NEGATIVE (0-5) Harinder/ul Urine Nitrite NEGATIVE (NEGATIVE) Urine Bilirubin NEGATIVE (NEGATIVE) Urine Urobilinogen NEGATIVE (0-1) mg/dL Ur Leukocyte Esterase NEGATIVE (NEGATIVE) Urine WBC (Auto) 3-5 (0-5) /HPF Urine RBC (Auto) NONE (0-2) /HPF U Epithel Cells (Auto) RARE (FEW) /HPF Urine Bacteria (Auto) NONE (NEGATIVE) /HPF Urine Mucus (Auto) SLIGHT (NEGATIVE) /HPF Urine Culture Reflexed NO (NO) Urine Glucose NEGATIVE (NEGATIVE) mg/dL 06/29/21 06/29/21 06/29/21 Range/Units 07:55 07:50 07:50 WBC (4.0-10.5) K/mm3 RBC (4.1-5.4) M/mm3 Hgb (12.0-16.0) gm/dl Hct (35-47) % MCV (78-100) fl MCH (26-32) pg MCHC (32-36) g/dl RDW (11.5-14.0) % Plt Count (150-450) K/mm3 MPV (7.5-11.0) fl Segmented Neutrophils (36.0-66.0) % Band Neutrophils (0.0-2.0) % Lymphocytes (Manual) (24-44) % Monocytes (Manual) (0.0-12.0) % Platelet Estimate (NORMAL) RBC Morphology D-Dimer (215-500) ng/mL Sodium 133 L (137-145) mmol/L Potassium 3.8 (3.5-5.1) mmol/L Chloride 99 (98-107) mmol/L Carbon Dioxide 24 (22-30) mmol/L Anion Gap 13.9 (5-15) MEQ/L BUN 20 H (7-17) mg/dL Creatinine 0.93 (0.52-1.04) mg/dL Estimated GFR > 60.0 ML/MIN Glucose 116 H (74-106) mg/dL Lactic Acid (0.4-2.0) Calcium 8.5 (8.4-10.2) mg/dL Magnesium 1.6 (1.6-2.3) mg/dL Total Bilirubin 0.60 (0.2-1.3) mg/dL AST 37 H (14-36) U/L ALT 32 (0-35) U/L Alkaline Phosphatase 62 (38-126) U/L Troponin I (0.000-0.034) ng/mL NT-Pro-B Natriuret Pep 710 (0-900) pg/mL Serum Total Protein 6.3 (6.3-8.2) g/dL Albumin 3.7 (3.5-5.0) g/dL Urine Color (YELLOW) Urine Appearance (CLEAR) Urine pH (5-6) Ur Specific [place] (1.005-1.025) Urine Protein (Negative) Urine Ketones (NEGATIVE) Urine Blood (0-5) Harinder/ul Urine Nitrite (NEGATIVE) Urine Bilirubin (NEGATIVE) Urine Urobilinogen (0-1) mg/dL Ur Leukocyte Esterase (NEGATIVE) Urine WBC (Auto) (0-5) /HPF Urine RBC (Auto) (0-2) /HPF U Epithel Cells (Auto) (FEW) /HPF Urine Bacteria (Auto) (NEGATIVE) /HPF Urine Mucus (Auto) (NEGATIVE) /HPF Urine Culture Reflexed (NO) Urine Glucose (NEGATIVE) mg/dL 06/29/21 06/29/21 06/29/21 Range/Units 07:50 07:45 07:41 WBC 8.8 (4.0-10.5) K/mm3 RBC 4.38 (4.1-5.4) M/mm3 Hgb 13.3 (12.0-16.0) gm/dl Hct 40.0 (35-47) % MCV 91.3 (78-100) fl MCH 30.4 (26-32) pg MCHC 33.3 (32-36) g/dl RDW 13.6 (11.5-14.0) % Plt Count 253 (150-450) K/mm3 MPV 9.5 (7.5-11.0) fl Segmented Neutrophils 64 (36.0-66.0) % Band Neutrophils 1 (0.0-2.0) % Lymphocytes (Manual) 20 L (24-44) % Monocytes (Manual) 15 H (0.0-12.0) % Platelet Estimate NORMAL (NORMAL) RBC Morphology NORMAL D-Dimer (215-500) ng/mL Sodium (137-145) mmol/L Potassium (3.5-5.1) mmol/L Chloride (98-107) mmol/L Carbon Dioxide (22-30) mmol/L Anion Gap (5-15) MEQ/L BUN (7-17) mg/dL Creatinine (0.52-1.04) mg/dL Estimated GFR ML/MIN Glucose (74-106) mg/dL Lactic Acid 1.3 (0.4-2.0) Calcium (8.4-10.2) mg/dL Magnesium (1.6-2.3) mg/dL Total Bilirubin (0.2-1.3) mg/dL AST (14-36) U/L ALT (0-35) U/L Alkaline Phosphatase (38-126) U/L Troponin I 0.015 (0.000-0.034) ng/mL NT-Pro-B Natriuret Pep (0-900) pg/mL Serum Total Protein (6.3-8.2) g/dL Albumin (3.5-5.0) g/dL Urine Color (YELLOW) Urine Appearance (CLEAR) Urine pH (5-6) Ur Specific [place] (1.005-1.025) Urine Protein (Negative) Urine Ketones (NEGATIVE) Urine Blood (0-5) Harinder/ul Urine Nitrite (NEGATIVE) Urine Bilirubin (NEGATIVE) Urine Urobilinogen (0-1) mg/dL Ur Leukocyte Esterase (NEGATIVE) Urine WBC (Auto) (0-5) /HPF Urine RBC (Auto) (0-2) /HPF U Epithel Cells (Auto) (FEW) /HPF Urine Bacteria (Auto) (NEGATIVE) /HPF Urine Mucus (Auto) (NEGATIVE) /HPF Urine Culture Reflexed (NO) Urine Glucose (NEGATIVE) mg/dL - Progress Progress: improved Air Movement: fair Progress Note: 06/29/21 10:35 66 years old is evaluated for increasing shortness of breath and cough with pos itive COVID-19. She was borderline hypoxic, placed on 2 L and currently 94%. Given albuterol puffs and steroids along with a dose of antibiotics. Chest x- ray showed bilateral airspace disease. Normal initial troponin. EKG did not show any acute ST elevation. D-dimers elevated, CTA is pending currently. Discussed with Dr. Atwood, agreed with admission, will give remdesivir and recommended holding off on antibiotics. Plan discussed with patient who understand and agrees with it. Blood Culture(s) Obtained: Yes Antibiotics given: Yes Discussed with DrRonald: Other (Dr. Atwood) Will see patient in: hospital (observation) Counseled pt/family regarding: lab results, diagnosis, rad results - Departure Departure Disposition: Observation Clinical Impression: Pneumonia due to COVID-19 virus, COPD (chronic obstructive pulmonary disease) with acute bronchitis Condition: Stable Critical Care Time: No Referrals: LANA MENON MD [Primary Care Provider] - Follow up/PCP as directed Instructions: Chronic Obstructive Pulmonary Disease
--- NOTE | 2021-06-29 08:01 | XRAY ---
Indication: Short of breath and weakness. Comparison: August 16, 2019. Portable chest demonstrates new subtle bilateral patchy airspace disease without consolidation/large effusion. Heart not enlarged. Bony thorax intact again with osteopenia and degenerative changes.
[2021-06-29 08:09] LABS: Hemoglobin 13.3 gm/dl (12.0-16.0); Mean Cell Volume 91.3 fl (78-100); Mean Corpuscular Hemoglobin 30.4 pg (26-32); Mean Corpuscular Hgb Concent. 33.3 g/dl (32-36); Mean Platelet Volume 9.5 fl (7.5-11.0); Platelet Count 253 K/mm3 (150-450); Red Blood Count 4.38 M/mm3 (4.1-5.4); Red Cell Distribution Width 13.6 % (11.5-14.0); White Blood Count 8.8 K/mm3 (4.0-10.5)
[2021-06-29 08:20] LABS: ALBUMIN 3.7 g/dL (3.5-5.0); ALKALINE PHOSPHATASE 62 U/L (38-126); ANION GAP 13.9 MEQ/L (5-15); BLOOD UREA NITROGEN 20 mg/dL (7-17); CHLORIDE 99 mmol/L (98-107); Calcium 8.5 mg/dL (8.4-10.2); Carbon Dioxide 24 mmol/L (22-30); Creatinine 1 0.93 mg/dL (0.52-1.04); EST GLOMERULAR FILTRATION RATE > 60.0 ML/MIN; Glucose 116 mg/dL (74-106); Potassium 3.8 mmol/L (3.5-5.1); SGOT/AST 37 U/L (14-36); SGPT/ALT 32 U/L (0-35); SODIUM 133 mmol/L (137-145); Total Protein 6.3 g/dL (6.3-8.2)
[2021-06-29 08:37] LABS: BAND 1 % (0.0-2.0); Lymphocytes 20 % (24-44); Monocyte 15 % (0.0-12.0); Neutrophils 64 % (36.0-66.0); Platelet Estimate NORMAL (NORMAL); Total Cells Counted 100
[2021-06-29] MEDS ORDERED: ROCEPHIN 2 Gm-D5w 50ML BAG** 2 G/50 ML IVPB IV SCH (10:00)
[2021-06-29] MEDS ORDERED: REMDESIVIR 200 MG in Sodium Chloride 0.9% 250 ML 250 ML IV ONE (10:34)
[2021-06-29 10:39] LABS: Appearance SLIGHTLY CLOUDY (CLEAR); Bilirubin NEGATIVE (NEGATIVE); Blood NEGATIVE Ery/ul (0-5); Epithelial Cells RARE /HPF (FEW); Glucose NEGATIVE (NEGATIVE); Ketones NEGATIVE (NEGATIVE); Leukocyte Esterase NEGATIVE (NEGATIVE); Mucus SLIGHT /HPF (NEGATIVE); Nitrite NEGATIVE (NEGATIVE); Protein,Urine Dip NEGATIVE (Negative); Specific Gravity 1.018 (1.005-1.025); Urobilinogen NEGATIVE mg/dL (0-1)
[2021-06-29] MEDS ORDERED: Zofran 4 MG/2 ML VIAL IV PRN (13:08)
[2021-06-29] MEDS ORDERED: TYLENOL 325 MG PO PRN (13:08)
[2021-06-29] MEDS: ENOXAPARIN SODIUM SQ SCH (13:57)
[2021-06-29] MEDS: VENTOLIN COMMON CANISTER IH SCH ×2 (14:20→19:25)
[2021-06-29] MEDS ORDERED: TYLENOL EXTRA STRENGTH 500 MG PO PRN (15:24)
[2021-06-29] MEDS ORDERED: Ventolin Hfa MDI IH PRN (15:28)
[2021-06-29] MEDS ORDERED: VENTOLIN COMMON CANISTER IH PRN (15:29)
[2021-06-29] MEDS ORDERED: Sodium Chloride 0.9% 1000 ML 1,000 ML IV SCH (15:30)
[2021-06-29] MEDS: Robitussin-Dm Syrup PO PRN (15:53)
[2021-06-29] MEDS: OLUMIANT PO SCH (15:53)
--- NOTE | 2021-06-29 19:41 | XRAY ---
Indication: Short of breath. General weakness. Suspect Covid 19. Multiple contiguous axial images obtained through the chest using 80 cc Isovue 370 contrast and PE protocol. Comparison: June 30, 2014. Good opacification of the pulmonary arteries to include the lobar and segmental branches. No pulmonary embolus. Heart not enlarged. Aorta is normal in course and caliber with minimal calcifications. Again tiny bilateral hilar calcified nodes. No pathologic mediastinal/hilar lymphadenopathy. Lungs demonstrates new mild diffuse bilateral patchy airspace disease without consolidation/large effusion. Bony thorax intact with mild degenerative changes throughout the spine. Limited upper abdomen again demonstrates fatty liver. Impression: 1. Negative pulmonary embolus. 2. New bilaterally diffuse patchy airspace disease. Commonly reported imaging features of Covid 19 pneumonia are present. Other processes such as influenza pneumonia and organizing pneumonia, as can be seen with drug toxicity and connective tissue disease, can cause a similar imaging pattern. 3. Again incidental fatty liver and old granulomatous disease. Comment: Preliminary interpretation made by C. No critical discrepancy.
[2021-06-29] MEDS: Apresoline 25 MG TABLET PO SCH (21:57)
[2021-06-29] MEDS: Coreg 3.125 MG PO SCH (21:58)
[2021-06-29] MEDS: NORVASC 5 MG PO SCH (21:58)
[2021-06-30] MEDS: VENTOLIN COMMON CANISTER IH SCH ×4 (03:23→11:31)
[2021-06-30 05:51] LABS: Hematocrit 38.2 % (35-47); Hemoglobin 12.3 gm/dl (12.0-16.0); Mean Cell Volume 92.9 fl (78-100); Mean Corpuscular Hemoglobin 29.9 pg (26-32); Mean Corpuscular Hgb Concent. 32.2 g/dl (32-36); Mean Platelet Volume 9.6 fl (7.5-11.0); Platelet Count 273 K/mm3 (150-450); Red Blood Count 4.11 M/mm3 (4.1-5.4); Red Cell Distribution Width 13.5 % (11.5-14.0); White Blood Count 6.6 K/mm3 (4.0-10.5)
[2021-06-30 06:03] LABS: ALBUMIN 3.4 g/dL (3.5-5.0); ALKALINE PHOSPHATASE 59 U/L (38-126); BLOOD UREA NITROGEN 26 mg/dL (7-17); CHLORIDE 102 mmol/L (98-107); Calcium 8.4 mg/dL (8.4-10.2); Carbon Dioxide 25 mmol/L (22-30); Creatinine 1 0.85 mg/dL (0.52-1.04); EST GLOMERULAR FILTRATION RATE > 60.0 ML/MIN; Glucose 191 mg/dL (74-106); SGOT/AST 31 U/L (14-36); SGPT/ALT 30 U/L (0-35); SODIUM 136 mmol/L (137-145); Total Protein 5.9 g/dL (6.3-8.2)
[2021-06-30 06:05] LABS: Potassium 3.9 mmol/L (3.5-5.1)
[2021-06-30 06:35] LABS: ANION GAP 12.9 MEQ/L (5-15)
[2021-06-30] MEDS: Robitussin-Dm Syrup PO PRN (08:23)
[2021-06-30 08:59] LABS: Lymphocytes 13 % (24-44); Monocyte 12 % (0.0-12.0); Neutrophils 75 % (36.0-66.0); Total Cells Counted 100
[2021-06-30 09:00] LABS: Platelet Estimate NORMAL (NORMAL)
[2021-06-30] MEDS: Coreg 3.125 MG PO SCH (09:17)
[2021-06-30] MEDS: OLUMIANT PO SCH (09:17)
[2021-06-30] MEDS: NORVASC 5 MG PO SCH (09:17)
[2021-06-30] MEDS ORDERED: PROTONIX 40 MG IV IV SCH (10:00)
[2021-06-30] MEDS ORDERED: hydroDIURIL 25 MG PO SCH (10:00)
[2021-06-30] MEDS ORDERED: REMDESIVIR 100 MG in Sodium Chloride 0.9% 100 ML BAG 100 ML IV SCH ×2 (10:00→10:38)
[2021-06-30] MEDS ORDERED: DIOVAN 80 MG PO SCH (10:00)
[2021-06-30] MEDS: Apresoline 25 MG TABLET PO SCH (11:30)
[2021-06-30] MEDS: ENOXAPARIN SODIUM SQ SCH (11:30)
[2021-06-30 11:59] VITALS: BP 113/65; PULSE 68; O2SAT 95
--- NOTE | 2021-07-01 13:21 | HP ---
CHIEF COMPLAINT: Shortness of breath, cough, positive COVID test. HISTORY OF PRESENT ILLNESS: A 66-year-old white female had the above complaints and tested positive for COVID six days ago. She has gotten worse since Thursday with increasing shortness of breath, cannot sleep because of coughing. She states she has chronic obstructive pulmonary disease and takes an inhaler. She said she had some mild heart failure and she is on some medications for that but not been admitted for heart problems, heart attacks or hypertension. She still smokes cigarettes a pack a day. She coughs so bad she cannot do her breathing treatments, she said. In the emergency room she was 89-90%, hypoxic and extremely short of breath from coughing. She is unvaccinated. Both family members she lives with are unvaccinated and had COVID. MEDICATIONS: Norvasc 5 mg, carvedilol 3.125 mg b.i.d., hydralazine 25 mg b.i.d., valsartan 320-12.5 mg once a day. ALLERGIES: CODEINE. PAST MEDICAL HISTORY: Hypertension, chronic obstructive pulmonary disease, gastroesophageal reflux disease. PAST SURGICAL HISTORY: Heart cath a couple of years ago. Hysterectomy. REVIEW OF SYSTEMS: HEENT: No problems hearing, seeing or tasting. CONSTITIONAL: She said she has had fever, chills, severe weak and nonstop cough. CHEST: As above. Short of breath on any exertion. Short of breast at rest. Wheezing much worse than normal. Has not been able to use nebulizer treatments because she cannot keep the masks on. CVS: No chest pain. Apparently she has been told she has mild heart failure and she has had hypertension for ten years. ABDOMEN: No nausea or vomiting. NEUROLOGIC: She gets headaches much worse since this had started. ENDOCRINE: No problems. Postmenopausal. EXTREMITIES: No edema, cyanosis or blood clot. SOCIAL HISTORY: Her son and [id number] lives with her on a small farm in [place]. They raise horses. PHYSICAL EXAMINATION: She is alert, orientated, cooperative, able to walk but constant coughing. Temperature 97F, pulse 83, respiratory rate 22, blood pressure 136/87. O2 on 2 liters is 90%. Pain intensity 0. HEENT: Pupils equal and reactive to light. NECK: Supple without adenopathy or JVD. CHEST: Wheezing bilateral, distant single heart sounds. ABDOMEN: No masses or organomegaly. Quite obese. EXTREMITIES: Good pulses in her feet and her wrist. No edema. LAB DATA AND TESTS: EKG no acute changes. White count is 8.8, hemoglobin 13. Electrolytes showed sodium 133, potassium 3.8. Troponins negative. Electrolytes normal. Chest x-ray showed chronic obstructive pulmonary disease changes, some mild changes at the bases typical for COVID pneumonia and severe kyphosis of the thoracic spine. IMPRESSION: 1) COVID pneumonia. 2) Chronic obstructive pulmonary disease. 3) Coronary artery disease. 4) Kyphosis of the spine. PLAN: Admission for usual COVID medications, oxygen and Albuterol. PROGNOSIS: Good.
== END 2021-06-30 13:00 | disposition home or self-care (01) ==
LOC: ED 06:45 → MED SURG 13:00
PROVIDERS: ADMIT Family Medicine; ATTEND Family Medicine
DX: U07.1 COVID-19 (principal); J12.82 Pneumonia due to coronavirus disease 2019; J44.1 Chronic obstructive pulmonary disease with (acute) exacerbation; I25.10 Atherosclerotic heart disease of native coronary artery without angina pectoris; M40.209 Unspecified kyphosis, site unspecified; I11.0 Hypertensive heart disease with heart failure; I50.9 Heart failure, unspecified; E78.5 Hyperlipidemia, unspecified; R09.02 Hypoxemia; F17.200 Nicotine dependence, unspecified, uncomplicated; Z79.899 Other long term (current) drug therapy
CPT/HCPCS: 36415; 71045; 71260; 80053; 81001; 83605; 83735; 83880; 84484; 85025; 85379; 87040; 93005; 93041; 93268; 94640; 94762; 96365; 96367; 96374; 99285; G0378; J0456; J0696; J1100; J1650; A9270-GY

== ENCOUNTER 2022-07-12 15:19 | Emergency (ER) | payer MEDICARE ==
[2022-07-12] MEDS ORDERED: solu-MEDROL 125 MG, Sterile H2O 10 ml 2 ML IV ONE ×2 (15:36)
[2022-07-12] MEDS ORDERED: DUONEB 0.5-3 MG/3 ml Neb IH ONE ×2 (15:36→15:45)
[2022-07-12] MEDS ORDERED: solu-MEDROL ONE (15:47)
[2022-07-12] MEDS ORDERED: Sterile H2O 10 ml IJ ONE (15:47)
[2022-07-12 15:57] LABS: Eosinophil % 3.9 % (0.00-5.0); Eosinophil (Absolute #) 0.48 x10^3/uL (0-0.5); Hematocrit 42.8 % (35-47); Lymphocyte (Absolute #) 1.41 x10^3/uL (1.0-4.6); Lymphocytes % 11.4 % (24.0-44.0); Mean Cell Volume 95.7 fL (78-100); Mean Corpuscular Hemoglobin 31.3 pg (26-32); Mean Corpuscular Hgb Concent. 32.7 g/dL (32-36); Mean Platelet Volume 8.8 fL (7.5-11.0); Monocyte (Absolute #) 0.95 x10^3/uL (0.0-1.3); Monocytes % 7.7 % (0.0-12.0); Neutrophil % 75.6 % (36.0-66.0); Platelet Count 348 x10^3/uL (150-450); Red Blood Count 4.47 x10^6/uL (4.1-5.4); White Blood Count 12.3 x10^3/uL (4.0-10.5)
[2022-07-12 16:22] LABS: ALBUMIN 4.7 g/dL (3.5-5.0); ALKALINE PHOSPHATASE 71 U/L (38-126); ANION GAP 13.2 MEQ/L (5-15); BLOOD UREA NITROGEN 14 mg/dL (7-17); CHLORIDE 101 mmol/L (98-107); Calcium 8.9 mg/dL (8.4-10.2); Carbon Dioxide 25 mmol/L (22-30); Creatinine 1 0.84 mg/dL (0.52-1.04); EST GLOMERULAR FILTRATION RATE > 60.0 ML/MIN; Glucose 127 mg/dL (74-106); MAGNESIUM 1.9 mg/dL (1.6-2.3); SGOT/AST 30 U/L (14-36); SGPT/ALT 22 U/L (0-35); SODIUM 136 mmol/L (137-145)
[2022-07-12 17:16] LABS: INFLUENZA A NEGATIVE (NEGATIVE); INFLUENZA B NEGATIVE (NEGATIVE); RESPIRATORY SYNCTIAL VIRUS NEGATIVE (Negative); SARS-CoV-2 Xpert Express NEGATIVE (NEGATIVE)
[2022-07-12] MEDS ORDERED: Vibramycin 100 MG PO ONE (17:29)
--- NOTE | 2022-07-12 17:29 | ERPHSYRPT ---
- History of Present Illness Time Seen by Provider: 07/12/22 15:21 Source: patient Exam Limitations: no limitations Patient Subjective Stated Complaint: cough Triage Nursing Assessment: Patient ambulated back to ED per self and transferred to bed. Patient A+O x 3. Patient's skin pink, warm and dry. Patient complains of cough that has gotten worse since . Patient complains of productive cough with yellow sputum. Lungs noted to be wheezy throughout. Patient complains of marv rib pain 5/10 from coughing. Physician History: 67-year-old female with history of tobacco abuse, COPD, hypertension, hyperlipidemia presented in the ER with 3 days history of cough congestion with started initially as upper respiratory and gradually going down in the lungs with cough productive of clear to yellow sputum moderate in amount with subjective feeling of fever and chills. Patient reports she feels congested, tight and wheezing despite using neb treatments as recommended. Denies any known sick contact. Because of repeated coughing has been having generalized chest soreness. Timing/Duration: day(s) (3), gradual onset, worse Cough Quality/Degree: moderate, productive cough Possible Cause: unknown cause Modifying Factors: Improves With: albuterol nebulizer. Worsens With: coughing, exertion Associated Symptoms: chest pain/soreness, cough, muscle aches, nasal congestion, nasal drainage, shortness of breath, sinus infection, wheezing Allergies/Adverse Reactions: codeine [Codeine] Allergy (Mild, Verified 07/12/22 15:23) Hives hives with itching reported by pt. Home Medications: Amlodipine Besylate 5 mg [Norvasc 5 mg] 5 mg PO BID 06/29/21 [History] Carvedilol 3.125 mg [Coreg 3.125 MG] 3.125 mg PO BID 06/29/21 [History] HydrALAzine HCL 25 MG TAB [Apresoline 25 MG TABLET] 25 mg PO BID 06/29/21 [History] Valsartan/Hydrochlorothiazide [Valsartan-Hctz 320-12.5 mg Tab] 1 each PO DAILY 06/29/21 [History] Hx Tetanus, Diphtheria Vaccination/Date Given: Yes Hx Influenza Vaccination/Date Given: No Hx Pneumococcal Vaccination/Date Given: No Immunizations Up to Date: Yes Travel Risk - International Travel Have you traveled outside of the country in past 3 weeks: No - Coronavirus Screening Are you exhibiting any of the following symptoms?: No Close contact with a COVID-19 positive Pt in past 14-21 Days: No - Vaccine Status Have you recieved a Covid-19 vaccination: No - Review of Systems Constitutional: Fever, Chills, Fatigue, Weakness Eyes: No Symptoms Ears, Nose, & Throat: Nose Congestion, Throat Pain, Throat Swelling Respiratory: Cough, Dyspnea, Wheezing Cardiac: Chest Pain Abdominal/Gastrointestinal: No Symptoms Genitourinary Symptoms: No Symptoms Musculoskeletal: Myalgias Skin: No Symptoms Neurological: Headache Psychological: No Symptoms Endocrine: No Symptoms Hematologic/Lymphatic: No Symptoms Immunological/Allergic: No Symptoms - Past Medical History Pertinent Past Medical History: Yes Neurological History: No Pertinent History ENT History: No Pertinent History Cardiac History: Hypertension Respiratory History: Bronchitis, COPD Endocrine Medical History: No Pertinent History Musculoskeletal History: Other GI Medical History: GERD History: No Pertinent History Psycho-Social History: No Pertinent History Female Reproductive Disorders: No Pertinent History Other Medical History: Bone spurs in the L foot, hiatial hernia - Past Surgical History Past Surgical History: Yes Neuro Surgical History: No Pertinent History Cardiac: Cardiac Catheterization Respiratory: No Pertinent History Gastrointestinal: No Pertinent History Genitourinary: No Pertinent History Musculoskeletal: Orthopedic Surgery Female Surgical History: Hysterectomy Other Surgical History: HEART CATH, foot - Social History Smoking Status: Current every day smoker How long have you smoked: 1 Exposure to second hand smoke: No Alcohol Use: None Drug Use: none Patient Lives Alone: No Significant Family History: heart disease, hypertension - Nursing Vital Signs Nursing Vital Signs: Initial Vital Signs Temperature 98.6 F 07/12/22 15:23 Pulse Rate 89 07/12/22 15:23 Respiratory Rate 20 07/12/22 15:23 Blood Pressure 157/72 07/12/22 15:23 O2 Sat by Pulse Oximetry 95 07/12/22 15:23 Pain Scale Pain Intensity 5 - Physical Exam General Appearance: no apparent distress, alert Eye Exam: PERRL/EOMI Ears, Nose, Throat Exam: pharyngeal erythema Neck Exam: normal inspection, non-tender, supple, full range of motion Respiratory Exam: diminished breath sounds, rhonchi, wheezing, No respiratory distress Cardiovascular Exam: regular rate/rhythm, normal heart sounds Gastrointestinal/Abdomen Exam: soft, No tenderness Back Exam: normal inspection, normal range of motion Extremity Exam: normal inspection Neurologic Exam: alert, oriented x 3, cooperative Skin Exam: normal color SpO2 Interpretation: normal SpO2: 92 O2 Delivery: Room Air Ordered Tests: Active Orders 24 hr Category Date Time Status Billet Inspector STAT Care 07/12/22 15:37 Active IV Insertion STAT Care 07/12/22 15:36 Active CHEST 1 VIEW (PORTABLE) Stat Exams 07/12/22 15:36 Taken BLOOD CULTURE Stat Lab 07/12/22 15:52 Received CBC W DIFF Stat Lab 07/12/22 15:44 Completed CMP Stat Lab 07/12/22 15:44 Results Lactic Acid Stat Lab 07/12/22 15:36 Completed MAGNESIUM Stat Lab 07/12/22 15:44 Results NT PRO BNP Stat Lab 07/12/22 15:44 Results TROPONIN Q4H Lab 07/12/22 15:52 Received TROPONIN Q4H Lab 07/12/22 19:45 Ordered TROPONIN Q4H Lab 07/12/22 23:45 Ordered UA W/RFX CULTURE Stat Lab 07/12/22 Ordered Respiratory Therapy Assessment DAILY RT 07/12/22 15:59 Completed Medication Summary Discontinued Medications Generic Name Dose Route Start Last Admin Trade Name Freq PRN Reason Stop Dose Admin Albuterol/Ipratropium 3 ml 07/12/22 15:36 07/12/22 15:58 Ipratropium/Albuterol Sulfate 3 Ml Ampul.Neb IH 07/12/22 15:37 3 ml STAT ONE Administration Albuterol/Ipratropium Confirm 07/12/22 15:45 Ipratropium/Albuterol Sulfate 3 Ml Ampul.Neb Administered 07/12/22 15:46 Dose 3 ml IH .STK-MED ONE Methylprednisolone Sodium 0 mg 07/12/22 15:36 07/12/22 15:48 Succinate 125 mg/ Sterile IV 07/12/22 15:37 125 mg Water 2 ml STAT ONE Administration Methylprednisolone Sodium Succinate Confirm 07/12/22 15:47 Methylprednis Sod Succ 125 Mg/2 Ml Vial Administered 07/12/22 15:48 Dose 125 mg .ROUTE .STK-MED ONE Sterile Water Confirm 07/12/22 15:47 Water For Injection,Sterile 10 Ml Vial Administered 07/12/22 15:48 Dose 10 ml IJ .STK-MED ONE Lab/Rad Data: Laboratory Result Diagrams 07/12/22 15:44 07/12/22 15:44 Laboratory Results 07/12/22 07/12/22 07/12/22 Range/Units 16:20 15:44 15:44 WBC 12.3 H (4.0-10.5) x10^3/uL RBC 4.47 (4.1-5.4) x10^6/uL Hgb 14.0 (12.0-16.0) g/dL Hct 42.8 (35-47) % MCV 95.7 (78-100) fL MCH 31.3 (26-32) pg MCHC 32.7 (32-36) g/dL RDW 13.0 (11.5-14.0) % Plt Count 348 (150-450) x10^3/uL MPV 8.8 (7.5-11.0) fL Gran % 75.6 H (36.0-66.0) % Immature Gran % (Auto) 0.6 H (0.00-0.4) % Nucleat RBC Rel Count 0.0 (0.00-0.1) % Eos # (Auto) 0.48 (0-0.5) x10^3/uL Immature Gran # (Auto) 0.08 H (0.00-0.03) x10^3u/L Absolute Lymphs (auto) 1.41 (1.0-4.6) x10^3/uL Absolute Monos (auto) 0.95 (0.0-1.3) x10^3/uL Absolute Nucleated RBC 0.00 (0.00-0.01) x10^3u/L Lymphocytes % 11.4 L (24.0-44.0) % Monocytes % 7.7 (0.0-12.0) % Eosinophils % 3.9 (0.00-5.0) % Basophils % 0.8 (0.0-0.4) % Absolute Granulocytes 9.30 H (1.4-6.9) x10^3/uL Basophils # 0.10 (0-0.4) x10^3/uL Sodium 136 L (137-145) mmol/L Potassium 4.0 (3.5-5.1) mmol/L Chloride 101 (98-107) mmol/L Carbon Dioxide 25 (22-30) mmol/L Anion Gap 13.2 (5-15) MEQ/L BUN 14 (7-17) mg/dL Creatinine 0.84 (0.52-1.04) mg/dL Estimated GFR > 60.0 ML/MIN Glucose 127 H (74-106) mg/dL Lactic Acid (0.4-2.0) Calcium 8.9 (8.4-10.2) mg/dL Magnesium 1.9 (1.6-2.3) mg/dL Total Bilirubin 0.80 (0.2-1.3) mg/dL AST 30 (14-36) U/L ALT 22 (0-35) U/L Alkaline Phosphatase 71 (38-126) U/L NT-Pro-B Natriuret Pep Pending Serum Total Protein 8.0 (6.3-8.2) g/dL Albumin 4.7 (3.5-5.0) g/dL Influenza Type A Ag NEGATIVE (NEGATIVE) Influenza Type B Ag NEGATIVE (NEGATIVE) RSV (PCR) NEGATIVE (Negative) SARS-CoV-2 (PCR) NEGATIVE (NEGATIVE) 07/12/22 Range/Units 15:36 WBC (4.0-10.5) x10^3/uL RBC (4.1-5.4) x10^6/uL Hgb (12.0-16.0) g/dL Hct (35-47) % MCV (78-100) fL MCH (26-32) pg MCHC (32-36) g/dL RDW (11.5-14.0) % Plt Count (150-450) x10^3/uL MPV (7.5-11.0) fL Gran % (36.0-66.0) % Immature Gran % (Auto) (0.00-0.4) % Nucleat RBC Rel Count (0.00-0.1) % Eos # (Auto) (0-0.5) x10^3/uL Immature Gran # (Auto) (0.00-0.03) x10^3u/L Absolute Lymphs (auto) (1.0-4.6) x10^3/uL Absolute Monos (auto) (0.0-1.3) x10^3/uL Absolute Nucleated RBC (0.00-0.01) x10^3u/L Lymphocytes % (24.0-44.0) % Monocytes % (0.0-12.0) % Eosinophils % (0.00-5.0) % Basophils % (0.0-0.4) % Absolute Granulocytes (1.4-6.9) x10^3/uL Basophils # (0-0.4) x10^3/uL Sodium (137-145) mmol/L Potassium (3.5-5.1) mmol/L Chloride (98-107) mmol/L Carbon Dioxide (22-30) mmol/L Anion Gap (5-15) MEQ/L BUN (7-17) mg/dL Creatinine (0.52-1.04) mg/dL Estimated GFR ML/MIN Glucose (74-106) mg/dL Lactic Acid 1.4 (0.4-2.0) Calcium (8.4-10.2) mg/dL Magnesium (1.6-2.3) mg/dL Total Bilirubin (0.2-1.3) mg/dL AST (14-36) U/L ALT (0-35) U/L Alkaline Phosphatase (38-126) U/L NT-Pro-B Natriuret Pep Serum Total Protein (6.3-8.2) g/dL Albumin (3.5-5.0) g/dL Influenza Type A Ag (NEGATIVE) Influenza Type B Ag (NEGATIVE) RSV (PCR) (Negative) SARS-CoV-2 (PCR) (NEGATIVE) - Progress Progress: improved Air Movement: good Progress Note: 07/12/22 17:28 67-year-old is evaluated for cough congestion and shortness of breath. She is wheezing bilaterally. Given steroids and neb treatments, on reevaluation feeling much better. Wheezing is improved. Chest x-ray reviewed by me revealed questionable airspace disease on the right but does have improvement when compared from previous chest x-ray. Has white count of 12, normal lactate and fairly unremarkable chemistries. I believe patient has COPD exacerbation with acute bronchitis, started on doxycycline and steroids and outpatient follow-up recommended. Discussed signs symptoms of worsening needing return to ER which she seems understanding. Stable for discharge. Blood Culture(s) Obtained: Yes Antibiotics given: Yes Counseled pt/family regarding: lab results, diagnosis, need for follow-up, rad results, smoking cessation - Departure Departure Disposition: Home Clinical Impression: COPD with acute bronchitis Condition: Stable Critical Care Time: No Referrals: LANA MENON MD [Primary Care Provider] - Follow up/PCP as directed (In 2 days for reevaluation) Instructions: Chronic Obstructive Pulmonary Disease, Cough, Adult (DC) Additional Instructions: Use neb treatment every 4-6 hourly. Follow-up with primary care for reevaluation. Do not smoke. Return to ER for worsening cough/wheezing/difficul ty breathing/persistent high-grade fever etc. Prescriptions: Prednisone 20 mg [Deltasone 20 mg] 60 mg PO DAILY 5 Days #15 tablet Doxycycline Hyclate 100 mg [Vibramycin 100 MG] 100 mg PO BID #14 tab
[2022-07-12] MEDS ORDERED: Vibramycin 100 MG ONE (17:36)
[2022-07-12 17:49] VITALS: BP 131/75; PULSE 68; O2SAT 91
--- NOTE | 2022-07-12 21:41 | XRAY ---
Indication: Cough. Comparison: June 29, 2021 Portable chest inflated and now clear. Heart not enlarged. Bony thorax intact again with mild osteopenia and degenerative changes. Impression: Nonacute chest with chronic bony findings.
== END 2022-07-12 17:48 | disposition home or self-care (01) ==
LOC: ED 15:19
DX: J44.0 Chronic obstructive pulmonary disease with (acute) lower respiratory infection (principal); J20.9 Acute bronchitis, unspecified; J44.1 Chronic obstructive pulmonary disease with (acute) exacerbation; R05.1 Acute cough; R09.81 Nasal congestion; I10 Essential (primary) hypertension; E78.5 Hyperlipidemia, unspecified; Z79.52 Long term (current) use of systemic steroids; Z79.899 Other long term (current) drug therapy; Z28.310 Unvaccinated for COVID-19; Z72.0 Tobacco use
CPT/HCPCS: 0241U; 36000; 36415; 71045; 80053; 83605; 83735; 83880; 84484; 85025; 87040; 93041; 94640; 96374; 99284; J2930; A9270-GY

== ENCOUNTER 2023-10-30 18:23 | Emergency (ER) | payer MEDICARE ==
[2023-10-30 18:37] VITALS: TEMP 97.8
[2023-10-30] MEDS ORDERED: Sodium Chloride 0.9% 1000 ML 1,000 ML ONE (18:41)
[2023-10-30] MEDS ORDERED: Zithromax 500 MG/ 250 ML NaCl Premix 500 MG/250 ML IVPB IV ONE (18:41)
[2023-10-30] MEDS ORDERED: ROCEPHIN 1 GM / 100 ML NaCl 1 GM/100 ML IVPB IV ONE (18:41)
[2023-10-30] MEDS ORDERED: PROVENTIL Solution 2.5 MG/0.5 ML IH ONE (18:43)
[2023-10-30] MEDS: PROVENTIL 2.5 MG/3 ML NEB IH ONE (18:44)
--- NOTE | 2023-10-30 18:45 | ERPHSYRPT ---
- History of Present Illness Time Seen by Provider: 10/30/23 18:27 Source: patient Exam Limitations: no limitations Physician History: For the past 3 days pt has had a productive cough of yellow phlegm & sore ribs from coughing; today a subjective fever; Pt denies vomiting, abdominal pain, earaches. Allergies/Adverse Reactions: codeine [Codeine] Allergy (Mild, Verified 10/30/23 18:36) Hives hives with itching reported by pt. Home Medications: Amlodipine Besylate 5 mg [Norvasc 5 mg] 5 mg PO BID 06/29/21 [History] Carvedilol 3.125 mg [Coreg 3.125 MG] 3.125 mg PO BID 06/29/21 [History] HydrALAzine HCL 25 MG TAB [Apresoline 25 MG TABLET] 25 mg PO BID 06/29/21 [History] Valsartan/Hydrochlorothiazide [Valsartan-Hctz 320-12.5 mg Tab] 1 each PO DAILY 06/29/21 [History] Fluticasone/Salmeterol 115/21 [Advair Hfa 115/21 Common canister*] 2 inh PO BID 10/30/23 [History] Hx Tetanus, Diphtheria Vaccination/Date Given: Yes Hx Influenza Vaccination/Date Given: No Hx Pneumococcal Vaccination/Date Given: No - Review of Systems Constitutional: Fever (subjective) Ears, Nose, & Throat: No Ear Pain Respiratory: Cough Cardiac: Other (sore ribs) Abdominal/Gastrointestinal: No Abdominal Pain, No Vomiting Neurological: No Headache - Past Medical History Pertinent Past Medical History: Yes Neurological History: No Pertinent History ENT History: No Pertinent History Cardiac History: Hypertension Respiratory History: Bronchitis, COPD Endocrine Medical History: No Pertinent History Musculoskeletal History: Other GI Medical History: GERD History: No Pertinent History Psycho-Social History: No Pertinent History Female Reproductive Disorders: No Pertinent History Other Medical History: Bone spurs in the L foot, hiatial hernia - Past Surgical History Past Surgical History: Yes Neuro Surgical History: No Pertinent History Cardiac: Cardiac Catheterization Respiratory: No Pertinent History Gastrointestinal: No Pertinent History Genitourinary: No Pertinent History Musculoskeletal: Orthopedic Surgery Female Surgical History: Hysterectomy Other Surgical History: HEART CATH, foot Significant Family History: heart disease, hypertension - Social History Smoking Status: Current every day smoker How long have you smoked: 1 Exposure to second hand smoke: No Alcohol Use: None Drug Use: none Patient Lives Alone: No - Nursing Vital Signs Nursing Vital Signs: Initial Vital Signs Temperature 97.8 F 10/30/23 18:26 Pulse Rate 88 10/30/23 18:26 Respiratory Rate 28 H 10/30/23 18:26 Blood Pressure 141/89 10/30/23 18:26 O2 Sat by Pulse Oximetry 94 L 10/30/23 18:26 Pain Scale Pain Intensity 8 - Physical Exam General Appearance: alert Eye Exam: eyes nml inspection Ears, Nose, Throat Exam: TMs normal, pharyngeal erythema Neck Exam: normal inspection Respiratory Exam: wheezing (mild wheezing over posterior bases) Cardiovascular Exam: normal heart sounds Gastrointestinal/Abdomen Exam: normal bowel sounds Extremity Exam: No pedal edema Neurologic Exam: alert, cooperative Skin Exam: warm, dry, No cyanosis - Course EKG Interpreted by Me: RATE (77), Sinus Rhythm, Left [place] Deviation, Other (QTc = 437) - Radiology Exams Chest X-ray Interpretation: Interpreted by me, Infiltrates (Right lung) Ordered Tests: Active Orders 24 hr Category Date Time Status Membership Sales Manager STAT Care 10/30/23 18:35 Active EKG-ER Only STAT Care 10/30/23 18:33 Active IV Insertion STAT Care 10/30/23 18:33 Active Pulse Oximetry (ED) STAT Care 10/30/23 18:33 Active CHEST 2 VIEWS (PA AND LAT) Stat Exams 10/30/23 18:34 Taken AMYLASE Stat Lab 10/30/23 18:45 Completed BLOOD CULTURE Stat Lab 10/30/23 18:45 Ordered CBC W DIFF Stat Lab 10/30/23 18:45 Completed CMP Stat Lab 10/30/23 18:45 Completed CULTURE,SPUTUM Stat Lab 10/30/23 18:34 Ordered LIPASE Stat Lab 10/30/23 18:45 Completed TROPONIN Q4H Lab 10/30/23 18:45 Completed TROPONIN Q4H Lab 10/30/23 22:45 Ordered TROPONIN Q4H Lab 10/31/23 02:45 Ordered UA W/RFX UR CULTURE Stat Lab 10/30/23 18:37 Ordered Respiratory Therapy Assessment DAILY RT 10/30/23 18:51 Active Medication Summary Generic Name Dose Route Start Last Admin Trade Name Freq PRN Reason Stop Dose Admin Sodium Chloride 1,000 mls @ 100 mls/hr 10/30/23 18:45 10/30/23 18:48 Sodium Chloride 0.9% 1000 Ml IV 11/29/23 18:44 100 mls/hr .Q10H JOSAFAT Administration Discontinued Medications Generic Name Dose Route Start Last Admin Trade Name Freq PRN Reason Stop Dose Admin Hydrocodone Bitart/Acetaminophen 10 ml 10/30/23 19:31 10/30/23 19:42 Hydrocodone/Acetaminophen 5 Ml Udcup PO 10/30/23 19:32 10 ml STAT STA Administration Hydrocodone Bitart/Acetaminophen Confirm 10/30/23 19:34 Hydrocodone/Acetaminophen 5 Ml Udcup Administered 10/30/23 19:35 Dose 10 ml .ROUTE .STK-MED ONE Albuterol Sulfate 2.5 mg 10/30/23 18:33 10/30/23 18:44 Albuterol Sulfate 2.5 Mg/3 Ml Neb IH 10/30/23 18:34 2.5 mg STAT ONE Administration Albuterol Sulfate Confirm 10/30/23 18:43 Albuterol Solution 2.5 Mg/0.5 Ml Ud Solution Administered 10/30/23 18:44 Dose 2.5 mg IH .STK-MED ONE Methylprednisolone Sodium 0 mg 10/30/23 19:31 10/30/23 19:42 Succinate 125 mg/ Sterile IV 10/30/23 19:32 125 mg Water 2 ml STAT ONE Administration Guaifenesin/Dextromethorphan 10 ml 10/30/23 18:33 10/30/23 18:51 Guaifenesin/D-Methorphan Hb 118 Ml Syrup PO 10/30/23 18:34 10 ml STAT ONE Administration Azithromycin 500 mg in 250 mls @ 250 mls/hr 10/30/23 18:33 10/30/23 19:49 Zithromax 500 Mg/ 250 Ml Nacl Premix IV 10/30/23 19:32 Infused STAT STA Infusion Ceftriaxone Sodium 1 gm in 100 mls @ 200 mls/hr 10/30/23 18:33 10/30/23 19:18 Rocephin 1 Gm / 100 Ml Nacl IV 10/30/23 19:02 Infused STAT ONE Infusion Azithromycin Confirm 10/30/23 18:41 Zithromax 500 Mg/ 250 Ml Nacl Premix Administered 10/30/23 18:42 Dose 500 mg in 250 mls @ ud IV .STK-MED ONE Ceftriaxone Sodium Confirm 10/30/23 18:41 Rocephin 1 Gm / 100 Ml Nacl Administered 10/30/23 18:42 Dose 1 gm in 100 mls @ ud IV .STK-MED ONE Methylprednisolone Sodium Succinate Confirm 10/30/23 19:34 Methylprednis Sod Succ 125 Mg/2 Ml Vial Administered 10/30/23 19:35 Dose 125 mg .ROUTE .STK-MED ONE Sterile Water Confirm 10/30/23 19:34 Water For Injection,Sterile 10 Ml Vial Administered 10/30/23 19:35 Dose 10 ml IJ .STK-MED ONE Lab/Rad Data: Laboratory Result Diagrams 10/30/23 18:45 10/30/23 18:45 Laboratory Results 10/30/23 10/30/23 10/30/23 Range/Units 18:45 18:45 18:45 WBC 8.7 (4.0-10.5) x10^3/uL RBC 4.65 (4.1-5.4) x10^6/uL Hgb 14.2 (12.0-16.0) g/dL Hct 42.8 (35-47) % MCV 92.0 (78-100) fL MCH 30.5 (26-32) pg MCHC 33.2 (32-36) g/dL RDW 13.2 (11.5-14.0) % Plt Count 285 (150-450) x10^3/uL MPV 8.9 (7.5-11.0) fL Gran % 71.1 H (36.0-66.0) % Immature Gran % (Auto) 0.8 H (0.00-0.4) % Nucleat RBC Rel Count 0.0 (0.00-0.1) % Eos # (Auto) 0.14 (0-0.5) x10^3/uL Immature Gran # (Auto) 0.07 H (0.00-0.03) x10^3u/L Absolute Lymphs (auto) 1.36 (1.0-4.6) x10^3/uL Absolute Monos (auto) 0.86 (0.0-1.3) x10^3/uL Absolute Nucleated RBC 0.00 (0.00-0.01) x10^3u/L Lymphocytes % 15.7 L (24.0-44.0) % Monocytes % 9.9 (0.0-12.0) % Eosinophils % 1.6 (0.00-5.0) % Basophils % 0.9 (0.0-0.4) % Absolute Granulocytes 6.16 (1.4-6.9) x10^3/uL Basophils # 0.08 (0-0.4) x10^3/uL Sodium 135 (135-145) mmol/L Potassium 4.1 (3.5-5.1) mmol/L Chloride 101 (98-107) mmol/L Carbon Dioxide 27 (22-30) mmol/L Anion Gap 11.6 (5-15) MEQ/L BUN 15 (7-17) mg/dL Creatinine 1.05 H (0.52-1.04) mg/dL Estimated GFR 57.9 ML/MIN Glucose 107 H (74-106) mg/dL Calcium 9.1 (8.4-10.2) mg/dL Total Bilirubin 0.50 (0.2-1.3) mg/dL AST 24 (14-36) U/L ALT 17 (0-35) U/L Alkaline Phosphatase 62 (38-126) U/L Troponin I < 0.012 (0.000-0.033) ng/mL Serum Total Protein 7.3 (6.3-8.2) g/dL Albumin 4.4 (3.5-5.0) g/dL Amylase 51 (30-110) U/L Lipase 111 (23-300) U/L Influenza Type A Ag (NEGATIVE) Influenza Type B Ag (NEGATIVE) RSV (PCR) (NEGATIVE) SARS-CoV-2 (PCR) (NEGATIVE) Group A Strep Antibody (NEGATIVE) 10/30/23 10/30/23 Range/Units 18:42 18:42 WBC (4.0-10.5) x10^3/uL RBC (4.1-5.4) x10^6/uL Hgb (12.0-16.0) g/dL Hct (35-47) % MCV (78-100) fL MCH (26-32) pg MCHC (32-36) g/dL RDW (11.5-14.0) % Plt Count (150-450) x10^3/uL MPV (7.5-11.0) fL Gran % (36.0-66.0) % Immature Gran % (Auto) (0.00-0.4) % Nucleat RBC Rel Count (0.00-0.1) % Eos # (Auto) (0-0.5) x10^3/uL Immature Gran # (Auto) (0.00-0.03) x10^3u/L Absolute Lymphs (auto) (1.0-4.6) x10^3/uL Absolute Monos (auto) (0.0-1.3) x10^3/uL Absolute Nucleated RBC (0.00-0.01) x10^3u/L Lymphocytes % (24.0-44.0) % Monocytes % (0.0-12.0) % Eosinophils % (0.00-5.0) % Basophils % (0.0-0.4) % Absolute Granulocytes (1.4-6.9) x10^3/uL Basophils # (0-0.4) x10^3/uL Sodium (135-145) mmol/L Potassium (3.5-5.1) mmol/L Chloride (98-107) mmol/L Carbon Dioxide (22-30) mmol/L Anion Gap (5-15) MEQ/L BUN (7-17) mg/dL Creatinine (0.52-1.04) mg/dL Estimated GFR ML/MIN Glucose (74-106) mg/dL Calcium (8.4-10.2) mg/dL Total Bilirubin (0.2-1.3) mg/dL AST (14-36) U/L ALT (0-35) U/L Alkaline Phosphatase (38-126) U/L Troponin I (0.000-0.033) ng/mL Serum Total Protein (6.3-8.2) g/dL Albumin (3.5-5.0) g/dL Amylase (30-110) U/L Lipase (23-300) U/L Influenza Type A Ag NEGATIVE (NEGATIVE) Influenza Type B Ag NEGATIVE (NEGATIVE) RSV (PCR) NEGATIVE (NEGATIVE) SARS-CoV-2 (PCR) NEGATIVE (NEGATIVE) Group A Strep Antibody NOT DETECTED (NEGATIVE) - Progress Progress: improved Progress Note: 10/30/23 20:10 Pt wants to go home. Counseled pt/family regarding: lab results, diagnosis, need for follow-up, rad results Medical Desision Making - Diagnostic Testing Diagnostic test were ordered, analyzed, and reviewed by me: Yes Radiological Interpretation: Interpreted by me - Departure Departure Disposition: Home Clinical Impression: Pneumonia Condition: Stable Critical Care Time: No Referrals: LANA MENON MD [Primary Care Provider] - Follow up/PCP as directed Instructions: Pneumonia, Adult (DC) Additional Instructions: Follow up with private doctor tomorrow. Albuterol nebulizer treatments every 4 hours. Prescriptions: Cefpodoxime Proxetil 200 mg [Vantin 200 mg] 200 mg PO BID #20 tablet Azithromycin 250 mg [Zithromax 250 MG TABLET] 250 mg PO ZPACK #6 tablet
[2023-10-30] MEDS: ROCEPHIN 1 GM / 100 ML NaCl 1 GM/100 ML IVPB IV ONE (18:48)
[2023-10-30] MEDS: Sodium Chloride 0.9% 1000 ML 1,000 ML IV SCH (18:48)
[2023-10-30 18:49] LABS: Absolute Neutrophil Ct (ANC) 6.16 x10^3/uL (1.4-6.9); BASOPHIL % 0.9 % (0.0-0.4); Basophil (Absolute #) 0.08 x10^3/uL (0-0.4); Eosinophil % 1.6 % (0.00-5.0); Eosinophil (Absolute #) 0.14 x10^3/uL (0-0.5); Hematocrit 42.8 % (35-47); Hemoglobin 14.2 g/dL (12.0-16.0); IMMATURE GRAN # 0.07 x10^3u/L (0.00-0.03); IMMATURE GRAN % 0.8 % (0.00-0.4); Lymphocyte (Absolute #) 1.36 x10^3/uL (1.0-4.6); Lymphocytes % 15.7 % (24.0-44.0); Mean Corpuscular Hemoglobin 30.5 pg (26-32); Mean Corpuscular Hgb Concent. 33.2 g/dL (32-36); Mean Platelet Volume 8.9 fL (7.5-11.0); Monocyte (Absolute #) 0.86 x10^3/uL (0.0-1.3); Monocytes % 9.9 % (0.0-12.0); Neutrophil % 71.1 % (36.0-66.0); Platelet Count 285 x10^3/uL (150-450); Red Blood Count 4.65 x10^6/uL (4.1-5.4); Red Cell Distribution Width 13.2 % (11.5-14.0); White Blood Count 8.7 x10^3/uL (4.0-10.5)
[2023-10-30] MEDS: Zithromax 500 MG/ 250 ML NaCl Premix 500 MG/250 ML IVPB IV STA (18:49)
[2023-10-30] MEDS: Robitussin-Dm Syrup PO ONE (18:51)
[2023-10-30 19:08] LABS: ALBUMIN 4.4 g/dL (3.5-5.0); ANION GAP 11.6 MEQ/L (5-15); BILIRUBIN,TOTAL 0.5 mg/dL (0.2-1.3); Calcium 9.1 mg/dL (8.4-10.2); Creatinine 1 1.05 mg/dL (0.52-1.04); EST GLOMERULAR FILTRATION RATE 57.9 ML/MIN; Potassium 4.1 mmol/L (3.5-5.1); Total Protein 7.3 g/dL (6.3-8.2)
[2023-10-30 19:27] LABS: INFLUENZA A NEGATIVE (NEGATIVE); INFLUENZA B NEGATIVE (NEGATIVE); RESPIRATORY SYNCTIAL VIRUS NEGATIVE (NEGATIVE); SARS-CoV-2 Xpert Express NEGATIVE (NEGATIVE)
[2023-10-30] MEDS ORDERED: Sterile H2O 10 ml IJ ONE (19:34)
[2023-10-30] MEDS ORDERED: HYDROCODONE-ACETAMIN 2.5-108/5 ML SOLUTION ONE (19:34)
[2023-10-30] MEDS ORDERED: solu-MEDROL ONE (19:34)
[2023-10-30] MEDS: solu-MEDROL 125 MG, Sterile H2O 10 ml 2 ML IV ONE (19:42)
[2023-10-30] MEDS: HYDROCODONE-ACETAMIN 2.5-108/5 ML SOLUTION PO STA (19:42)
[2023-10-30 20:03] VITALS: BP 117/63; PULSE 79; RESP 25; O2SAT 93
--- NOTE | 2023-10-31 07:26 | XRAY ---
Indication: Cough. Comparison: July 12, 2022 PA/lateral chest again hyperinflated with chronic lung markings. No focal infiltrate, consolidation, or large effusion. Heart and mediastinal structures within normal limits. Bony thorax intact again with osteopenia and degenerative changes. Impression: Continued nonacute chest with chronic features.
== END 2023-10-30 20:19 | disposition home or self-care (01) ==
LOC: ED 18:23
DX: J18.9 Pneumonia, unspecified organism (principal); R05.1 Acute cough; I10 Essential (primary) hypertension; Z79.899 Other long term (current) drug therapy; Z72.0 Tobacco use
CPT/HCPCS: 0241U; 36000; 36415; 71046; 80053; 82150; 83690; 84484; 85025; 87040; 87651; 93005; 93041; 94640; 94760; 96365; 96368; 96374; 99284; J0456; J0696; J2930; J7609; A9270-GY

== ENCOUNTER 2023-10-31 22:15 | Observation (INO) | payer MEDICARE ==
--- NOTE | 2023-10-31 22:41 | ERPHSYRPT ---
- History of Present Illness Time Seen by Provider: 10/31/23 22:40 Source: patient Exam Limitations: no limitations Patient Subjective Stated Complaint: cough, SOB Triage Nursing Assessment: XXX Physician History: 68yo f presents for 1wk worsening cough and sob. Pt was seen in ED last night for same sx, was diagnosed w/ pneumonia at that time and recommended that pt be admitted to hospital. Pt requested to dc home, has progressively worsened today and decided to return to ED. Pt reports significant non-productive cough, reports fever at home, reports some intermittent chills as well. Pt currently denies cp, n/v/abdominal pain. Timing/Duration: week(s) (1wk) Cough Quality/Degree: dry cough Possible Cause: frequent episodes Allergies/Adverse Reactions: codeine [Codeine] Allergy (Mild, Verified 10/31/23 22:33) Hives hives with itching reported by pt. Home Medications: Amlodipine Besylate 5 mg [Norvasc 5 mg] 5 mg PO BID 06/29/21 [History] Carvedilol 3.125 mg [Coreg 3.125 MG] 3.125 mg PO BID 06/29/21 [History] HydrALAzine HCL 25 MG TAB [Apresoline 25 MG TABLET] 25 mg PO BID 06/29/21 [History] Valsartan/Hydrochlorothiazide [Valsartan-Hctz 320-12.5 mg Tab] 1 each PO DAILY 06/29/21 [History] Fluticasone/Salmeterol 115/21 [Advair Hfa 115/21 Common canister*] 2 inh PO BID 10/30/23 [History] Hx Tetanus, Diphtheria Vaccination/Date Given: Yes Hx Influenza Vaccination/Date Given: No Hx Pneumococcal Vaccination/Date Given: No Travel Risk - International Travel Have you traveled outside of the country in past 3 weeks: No - Emerging Infectious Disease Are you exhibiting symptoms associated with any current EIDs: Yes Symptoms: Shortness of Breath - Past Medical History Pertinent Past Medical History: Yes Neurological History: No Pertinent History ENT History: No Pertinent History Cardiac History: Hypertension Respiratory History: Bronchitis, COPD Endocrine Medical History: No Pertinent History Musculoskeletal History: Other GI Medical History: GERD History: No Pertinent History Psycho-Social History: No Pertinent History Female Reproductive Disorders: No Pertinent History Other Medical History: Hiatal hernia - Past Surgical History Past Surgical History: Yes Neuro Surgical History: No Pertinent History Cardiac: Cardiac Catheterization Respiratory: No Pertinent History Gastrointestinal: No Pertinent History Genitourinary: No Pertinent History Musculoskeletal: Orthopedic Surgery Female Surgical History: Hysterectomy Other Surgical History: heart cath, foot surgery Significant Family History: heart disease, hypertension - Social History Smoking Status: Current every day smoker How long have you smoked: 1 Exposure to second hand smoke: No Alcohol Use: None Drug Use: none Patient Lives Alone: No - Nursing Vital Signs Nursing Vital Signs: Initial Vital Signs Temperature 100.4 F 10/31/23 22:20 Pulse Rate 95 H 10/31/23 22:20 Respiratory Rate 24 10/31/23 22:20 Blood Pressure 164/65 10/31/23 22:20 O2 Sat by Pulse Oximetry 92 L 10/31/23 22:20 Pain Scale Pain Intensity 9 - Physical Exam SpO2: 92 - Course EKG Interpreted by Me: RATE (96), Sinus Rhythm, Other (no significant ST changes, not suggestive of ischemia, qtcb 420) Ordered Tests: Active Orders 24 hr Category Date Time Status EKG-ER Only STAT Care 10/31/23 22:41 Active CHEST 1 VIEW (PORTABLE) Stat Exams 10/31/23 22:42 Taken BLOOD CULTURE Stat Lab 10/31/23 23:09 Ordered CBC W DIFF Stat Lab 10/31/23 23:09 Completed CMP Stat Lab 10/31/23 23:09 Completed Lactic Acid Stat Lab 10/31/23 22:41 Completed PROCALCITONIN Stat Lab 10/31/23 23:09 Completed TROPONIN Q4H Lab 10/31/23 23:32 Completed TROPONIN Q4H Lab 11/01/23 03:30 Ordered TROPONIN Q4H Lab 11/01/23 07:30 Ordered Respiratory Therapy Assessment DAILY RT 10/31/23 23:05 Active Medication Summary Discontinued Medications Generic Name Dose Route Start Last Admin Trade Name Freq PRN Reason Stop Dose Admin Albuterol/Ipratropium 3 ml 10/31/23 22:51 10/31/23 23:02 Ipratropium/Albuterol Sulfate 3 Ml Ampul.Neb IH 10/31/23 22:52 3 ml STAT ONE Administration Albuterol/Ipratropium Confirm 10/31/23 22:56 Ipratropium/Albuterol Sulfate 3 Ml Ampul.Neb Administered 10/31/23 22:57 Dose 3 ml IH .STK-MED ONE Guaifenesin/Dextromethorphan 10 ml 10/31/23 23:42 11/01/23 00:17 Guaifenesin/D-Methorphan Hb 118 Ml Syrup PO 10/31/23 23:43 Not Given STAT ONE Sodium Chloride 1,000 mls @ 999 mls/hr 10/31/23 22:41 10/31/23 22:46 Sodium Chloride 0.9% 1000 Ml IV 10/31/23 23:41 999 mls/hr .Q1H1M STA Administration Sodium Chloride Confirm 10/31/23 22:44 Sodium Chloride 0.9% 1000 Ml Administered 10/31/23 22:45 Dose 1,000 mls @ ud .ROUTE .STK-MED ONE Ceftriaxone Sodium 1 gm in 100 mls @ 200 mls/hr 10/31/23 23:30 11/01/23 00:17 Rocephin 1 Gm / 100 Ml Nacl IV 10/31/23 23:59 Infused STAT ONE Infusion Ceftriaxone Sodium Confirm 10/31/23 23:34 Rocephin 1 Gm / 100 Ml Nacl Administered 10/31/23 23:35 Dose 1 gm in 100 mls @ ud IV .STK-MED ONE Lab/Rad Data: Laboratory Result Diagrams 10/31/23 23:09 10/31/23 23:09 Laboratory Results 10/31/23 10/31/23 10/31/23 Range/Units 23:32 23:09 23:09 WBC (4.0-10.5) x10^3/uL RBC (4.1-5.4) x10^6/uL Hgb (12.0-16.0) g/dL Hct (35-47) % MCV (78-100) fL MCH (26-32) pg MCHC (32-36) g/dL RDW (11.5-14.0) % Plt Count (150-450) x10^3/uL MPV (7.5-11.0) fL Gran % (36.0-66.0) % Immature Gran % (Auto) (0.00-0.4) % Nucleat RBC Rel Count (0.00-0.1) % Eos # (Auto) (0-0.5) x10^3/uL Immature Gran # (Auto) (0.00-0.03) x10^3u/L Absolute Lymphs (auto) (1.0-4.6) x10^3/uL Absolute Monos (auto) (0.0-1.3) x10^3/uL Absolute Nucleated RBC (0.00-0.01) x10^3u/L Lymphocytes % (24.0-44.0) % Monocytes % (0.0-12.0) % Eosinophils % (0.00-5.0) % Basophils % (0.0-0.4) % Absolute Granulocytes (1.4-6.9) x10^3/uL Basophils # (0-0.4) x10^3/uL Sodium 135 (135-145) mmol/L Potassium 3.6 (3.5-5.1) mmol/L Chloride 99 (98-107) mmol/L Carbon Dioxide 27 (22-30) mmol/L Anion Gap 12.7 (5-15) MEQ/L BUN 19 H (7-17) mg/dL Creatinine 1.09 H (0.52-1.04) mg/dL Estimated GFR 55.3 ML/MIN Glucose 113 H (74-106) mg/dL Lactic Acid (0.4-2.0) Calcium 9.2 (8.4-10.2) mg/dL Total Bilirubin 0.40 (0.2-1.3) mg/dL AST 38 H (14-36) U/L ALT 24 (0-35) U/L Alkaline Phosphatase 63 (38-126) U/L Troponin I < 0.012 (0.000-0.033) ng/mL Serum Total Protein 7.9 (6.3-8.2) g/dL Albumin 4.4 (3.5-5.0) g/dL Procalcitonin 0.070 (0.030-0.080) ng/mL 10/31/23 10/31/23 Range/Units 23:09 22:41 WBC 16.2 H (4.0-10.5) x10^3/uL RBC 4.70 (4.1-5.4) x10^6/uL Hgb 14.4 (12.0-16.0) g/dL Hct 42.7 (35-47) % MCV 90.9 (78-100) fL MCH 30.6 (26-32) pg MCHC 33.7 (32-36) g/dL RDW 13.0 (11.5-14.0) % Plt Count 298 (150-450) x10^3/uL MPV 9.3 (7.5-11.0) fL Gran % 86.4 H (36.0-66.0) % Immature Gran % (Auto) 0.6 H (0.00-0.4) % Nucleat RBC Rel Count 0.0 (0.00-0.1) % Eos # (Auto) 0 (0-0.5) x10^3/uL Immature Gran # (Auto) 0.09 H (0.00-0.03) x10^3u/L Absolute Lymphs (auto) 1.16 (1.0-4.6) x10^3/uL Absolute Monos (auto) 0.91 (0.0-1.3) x10^3/uL Absolute Nucleated RBC 0.00 (0.00-0.01) x10^3u/L Lymphocytes % 7.2 L (24.0-44.0) % Monocytes % 5.6 (0.0-12.0) % Eosinophils % 0.0 (0.00-5.0) % Basophils % 0.2 (0.0-0.4) % Absolute Granulocytes 13.96 H (1.4-6.9) x10^3/uL Basophils # 0.04 (0-0.4) x10^3/uL Sodium (135-145) mmol/L Potassium (3.5-5.1) mmol/L Chloride (98-107) mmol/L Carbon Dioxide (22-30) mmol/L Anion Gap (5-15) MEQ/L BUN (7-17) mg/dL Creatinine (0.52-1.04) mg/dL Estimated GFR ML/MIN Glucose (74-106) mg/dL Lactic Acid 1.6 (0.4-2.0) Calcium (8.4-10.2) mg/dL Total Bilirubin (0.2-1.3) mg/dL AST (14-36) U/L ALT (0-35) U/L Alkaline Phosphatase (38-126) U/L Troponin I (0.000-0.033) ng/mL Serum Total Protein (6.3-8.2) g/dL Albumin (3.5-5.0) g/dL Procalcitonin (0.030-0.080) ng/mL - Progress Progress: re-examined Air Movement: fair Progress Note: 11/01/23 00:25 discussed admission to obs w/ Dr Kohli who is willing to accept wbc 16k, received 1 duoneb w/ some improvement, pt refused robitussin for cough suppression, received 1g Rocephin IV likely pna, will admit to obs for continued IV abx and respiratory treatment as needed Blood Culture(s) Obtained: Yes Antibiotics given: Yes Will see patient in: hospital (observation) Counseled pt/family regarding: lab results, diagnosis, need for follow-up, rad results Medical Desision Making - Diagnostic Testing Diagnostic test were ordered, analyzed, and reviewed by me: Yes Radiological Interpretation: Interpreted by me, Reviewed by me - Risk of complications The pt has a high risk of morbidity or mortality based on: Decision regarding hospitilization or escalation of hosp level of care - Departure Departure Disposition: Observation Clinical Impression: Pneumonia Qualifiers: Pneumonia type: due to unspecified organism Laterality: unspecified laterality Lung location: unspecified part of lung Qualified Code(s): J18.9 - Pneumonia, unspecified organism Cough Qualifiers: Cough type: acute Qualified Code(s): R05.1 - Acute cough Leukocytosis Qualifiers: Leukocytosis type: unspecified Qualified Code(s): D72.829 - Elevated white blood cell count, unspecified Condition: Stable Critical Care Time: No Referrals: LANA MENON MD [Primary Care Provider] - Follow up/PCP as directed
[2023-10-31] MEDS ORDERED: Sodium Chloride 0.9% 1000 ML 1,000 ML ONE (22:44)
[2023-10-31] MEDS: Sodium Chloride 0.9% 1000 ML 1,000 ML IV STA (22:46)
[2023-10-31] MEDS ORDERED: DUONEB 0.5-3 MG/3 ml Neb IH ONE (22:56)
[2023-10-31] MEDS: DUONEB 0.5-3 MG/3 ml Neb IH ONE (23:02)
[2023-10-31 23:12] LABS: Absolute Neutrophil Ct (ANC) 13.96 x10^3/uL (1.4-6.9); BASOPHIL % 0.2 % (0.0-0.4); Basophil (Absolute #) 0.04 x10^3/uL (0-0.4); Eosinophil (Absolute #) 0 x10^3/uL (0-0.5); Hematocrit 42.7 % (35-47); Hemoglobin 14.4 g/dL (12.0-16.0); IMMATURE GRAN # 0.09 x10^3u/L (0.00-0.03); IMMATURE GRAN % 0.6 % (0.00-0.4); Lymphocyte (Absolute #) 1.16 x10^3/uL (1.0-4.6); Lymphocytes % 7.2 % (24.0-44.0); Mean Cell Volume 90.9 fL (78-100); Mean Corpuscular Hemoglobin 30.6 pg (26-32); Mean Corpuscular Hgb Concent. 33.7 g/dL (32-36); Mean Platelet Volume 9.3 fL (7.5-11.0); Monocyte (Absolute #) 0.91 x10^3/uL (0.0-1.3); Monocytes % 5.6 % (0.0-12.0); Neutrophil % 86.4 % (36.0-66.0); Platelet Count 298 x10^3/uL (150-450); White Blood Count 16.2 x10^3/uL (4.0-10.5)
[2023-10-31 23:27] LABS: ALBUMIN 4.4 g/dL (3.5-5.0); ANION GAP 12.7 MEQ/L (5-15); BILIRUBIN,TOTAL 0.4 mg/dL (0.2-1.3); Calcium 9.2 mg/dL (8.4-10.2); Creatinine 1 1.09 mg/dL (0.52-1.04); EST GLOMERULAR FILTRATION RATE 55.3 ML/MIN; Potassium 3.6 mmol/L (3.5-5.1); Total Protein 7.9 g/dL (6.3-8.2)
[2023-10-31] MEDS ORDERED: ROCEPHIN 1 GM / 100 ML NaCl 1 GM/100 ML IVPB IV ONE (23:34)
[2023-10-31] MEDS: ROCEPHIN 1 GM / 100 ML NaCl 1 GM/100 ML IVPB IV ONE (23:36)
[2023-11-01] MEDS: Robitussin-Dm Syrup PO ONE (00:02)
--- NOTE | 2023-11-01 00:34 | PCM.HP ---
History of Present Illness - Chief Complaint Chief Complaint: pneumonia History of Present Illness: is a 68 year old female who presents with 1 week worsening of cough and shortness of breath, and who was seen in the ED yesterday night for the same symptoms and was diagnosed with PNA and recommended for admission but patient denied and went home. However, today the patient reports worsening symptoms of cough and has come back to the ED. Reports fever as well, chills. No chest pain, n/v/d. - Review of Systems Constitutional: No Fever, No Chills Eyes: No Symptoms Ears, Nose, & Throat: No Symptoms Respiratory: No Cough, No Short Of Breath Cardiac: No Chest Pain, No Edema, No Syncope Abdominal/Gastrointestinal: No Abdominal Pain, No Nausea, No Vomiting, No Diarrhea Genitourinary Symptoms: No Dysuria Musculoskeletal: No Back Pain, No Neck Pain Skin: No Rash Neurological: No Dizziness, No Focal Weakness, No Sensory Changes Psychological: No Symptoms Endocrine: No Symptoms Hematologic/Lymphatic: No Symptoms Immunological/Allergic: No Symptoms Medications & Allergies Home Medications: Home Medication List Albuterol 8 gm Mdi Hfa [Ventolin Hfa MDI] 90 mcg IH Q4H PRN #1 hfa.aer.[id number] 08/16/19 [Rx Confirmed 10/30/23] Amlodipine Besylate 5 mg [Norvasc 5 mg] 5 mg PO BID 06/29/21 [History Confirmed 10/30/23] Carvedilol 3.125 mg [Coreg 3.125 MG] 3.125 mg PO BID 06/29/21 [History Confirmed 10/30/23] HydrALAzine HCL 25 MG TAB [Apresoline 25 MG TABLET] 25 mg PO BID 06/29/21 [History Confirmed 10/30/23] Valsartan/Hydrochlorothiazide [Valsartan-Hctz 320-12.5 mg Tab] 1 each PO DAILY 06/29/21 [History Confirmed 10/30/23] Azithromycin 250 mg [Zithromax 250 MG TABLET] 250 mg PO ZPACK #6 tablet 10/30/23 [Rx] Cefpodoxime Proxetil 200 mg [Vantin 200 mg] 200 mg PO BID #20 tablet 10/30/23 [Rx] Fluticasone/Salmeterol 115/21 [Advair Hfa 115/21 Common canister*] 2 inh PO BID 10/30/23 [History Confirmed 10/30/23] Allergies/Adverse Reactions: Allergies Allergy/AdvReac Type Severity Reaction Status Date / Time codeine [Codeine] Allergy Mild Hives Verified 10/31/23 22:33 - Past Medical History Past Medical History: Yes Neurological History: No Pertinent History ENT History: No Pertinent History Cardiac History: Hypertension Respiratory History: Bronchitis, COPD Endocrine Medical History: No Pertinent History Musculoskelatal History: Other GI Medical History: GERD History: No Pertinent History Pyscho-Social History: No Pertinent History Reproductive Disorders: No Pertinent History Comment: Hiatal hernia - Past Surgical History Past Surgical History: Yes Neuro Surgical History: No Pertinent History Cardiac History: Cardiac Catheterization Respiratory Surgery: No Pertinent History GI Surgical History: No Pertinent History Genitourinary Surgical Hx: No Pertinent History Musculskeletal Surgical Hx: Orthopedic Surgery Female Surgical History: Hysterectomy Other Surgical History: heart cath, foot surgery Significant Family History: heart disease, hypertension - Social History Smoking Status: Current every day smoker How long have you smoked: 1 Exposure to second hand smoke: No Alcohol: None Drug Use: none - Social Determinants of Health Will the patient participate in the screening: Yes Do you worry about a steady place to live?: No Do you have any problems with any of the following?: No known problems In the past 12 months,have you had to go without utilities?: No Have you or anyone in your house had to go without enough: No Transportation Issues: No Has anyone in your support network made you feel unsafe?: No - Physical Exam Vital Signs: Vital Signs - 24 hr Temp Pulse Resp BP BP Pulse Ox 11/01/23 00:29 92 L 11/01/23 00:15 88 22 127/76 91 L 11/01/23 00:00 89 23 156/70 92 L 10/31/23 23:49 96 H 22 155/74 91 L 10/31/23 23:45 89 20 87/75 93 L 10/31/23 23:31 90 26 H 149/58 93 L 10/31/23 23:16 90 28 H 170/75 94 L 10/31/23 23:05 97 H 20 94 L 10/31/23 23:02 91 H 28 H 143/64 94 L 10/31/23 22:45 97 H 18 170/79 94 L 10/31/23 22:20 100.4 F 95 H 24 164/65 92 L General Appearance: no apparent distress, alert Neurologic Exam: alert, oriented x 3, cooperative, normal mood/affect, nml cerebellar function, nml station & gait, sensation nml, No motor deficits Eye Exam: PERRL/EOMI, eyes nml inspection Ears, Nose, Throat Exam: normal ENT inspection, TMs normal, pharynx normal, moist mucous membranes Neck Exam: normal inspection, non-tender, supple, full range of motion Respiratory Exam: normal breath sounds, lungs clear, No respiratory distress Cardiovascular Exam: regular rate/rhythm, normal heart sounds, normal peripheral pulses Gastrointestinal/Abdomen Exam: soft, normal bowel sounds, No tenderness, No mass Back Exam: normal inspection, normal range of motion, No CVA tenderness, No vertebral tenderness Extremity Exam: normal inspection, normal range of motion, pelvis stable Skin Exam: normal color, warm, dry, No rash Lymphatic Exam: No adenopathy Results - Labs Lab/Micro Results: Lab Results-Last 24 Hours 10/31/23 10/31/23 10/31/23 Range/Units 22:41 23:09 23:09 WBC 16.2 H (4.0-10.5) x10^3/uL RBC 4.70 (4.1-5.4) x10^6/uL Hgb 14.4 (12.0-16.0) g/dL Hct 42.7 (35-47) % MCV 90.9 (78-100) fL MCH 30.6 (26-32) pg MCHC 33.7 (32-36) g/dL RDW 13.0 (11.5-14.0) % Plt Count 298 (150-450) x10^3/uL MPV 9.3 (7.5-11.0) fL Gran % 86.4 H (36.0-66.0) % Immature Gran % (Auto) 0.6 H (0.00-0.4) % Nucleat RBC Rel Count 0.0 (0.00-0.1) % Eos # (Auto) 0 (0-0.5) x10^3/uL Immature Gran # (Auto) 0.09 H (0.00-0.03) x10^3u/L Absolute Lymphs (auto) 1.16 (1.0-4.6) x10^3/uL Absolute Monos (auto) 0.91 (0.0-1.3) x10^3/uL Absolute Nucleated RBC 0.00 (0.00-0.01) x10^3u/L Lymphocytes % 7.2 L (24.0-44.0) % Monocytes % 5.6 (0.0-12.0) % Eosinophils % 0.0 (0.00-5.0) % Basophils % 0.2 (0.0-0.4) % Absolute Granulocytes 13.96 H (1.4-6.9) x10^3/uL Basophils # 0.04 (0-0.4) x10^3/uL Sodium 135 (135-145) mmol/L Potassium 3.6 (3.5-5.1) mmol/L Chloride 99 (98-107) mmol/L Carbon Dioxide 27 (22-30) mmol/L Anion Gap 12.7 (5-15) MEQ/L BUN 19 H (7-17) mg/dL Creatinine 1.09 H (0.52-1.04) mg/dL Estimated GFR 55.3 ML/MIN Glucose 113 H (74-106) mg/dL Lactic Acid 1.6 (0.4-2.0) Calcium 9.2 (8.4-10.2) mg/dL Total Bilirubin 0.40 (0.2-1.3) mg/dL AST 38 H (14-36) U/L ALT 24 (0-35) U/L Alkaline Phosphatase 63 (38-126) U/L Troponin I (0.000-0.033) ng/mL Serum Total Protein 7.9 (6.3-8.2) g/dL Albumin 4.4 (3.5-5.0) g/dL Procalcitonin (0.030-0.080) ng/mL 10/31/23 10/31/23 Range/Units 23:09 23:32 WBC (4.0-10.5) x10^3/uL RBC (4.1-5.4) x10^6/uL Hgb (12.0-16.0) g/dL Hct (35-47) % MCV (78-100) fL MCH (26-32) pg MCHC (32-36) g/dL RDW (11.5-14.0) % Plt Count (150-450) x10^3/uL MPV (7.5-11.0) fL Gran % (36.0-66.0) % Immature Gran % (Auto) (0.00-0.4) % Nucleat RBC Rel Count (0.00-0.1) % Eos # (Auto) (0-0.5) x10^3/uL Immature Gran # (Auto) (0.00-0.03) x10^3u/L Absolute Lymphs (auto) (1.0-4.6) x10^3/uL Absolute Monos (auto) (0.0-1.3) x10^3/uL Absolute Nucleated RBC (0.00-0.01) x10^3u/L Lymphocytes % (24.0-44.0) % Monocytes % (0.0-12.0) % Eosinophils % (0.00-5.0) % Basophils % (0.0-0.4) % Absolute Granulocytes (1.4-6.9) x10^3/uL Basophils # (0-0.4) x10^3/uL Sodium (135-145) mmol/L Potassium (3.5-5.1) mmol/L Chloride (98-107) mmol/L Carbon Dioxide (22-30) mmol/L Anion Gap (5-15) MEQ/L BUN (7-17) mg/dL Creatinine (0.52-1.04) mg/dL Estimated GFR ML/MIN Glucose (74-106) mg/dL Lactic Acid (0.4-2.0) Calcium (8.4-10.2) mg/dL Total Bilirubin (0.2-1.3) mg/dL AST (14-36) U/L ALT (0-35) U/L Alkaline Phosphatase (38-126) U/L Troponin I < 0.012 (0.000-0.033) ng/mL Serum Total Protein (6.3-8.2) g/dL Albumin (3.5-5.0) g/dL Procalcitonin 0.070 (0.030-0.080) ng/mL Microbiology 10/31/23 22:41 Blood Culture Gram Stain - Final Blood Not Reportable - Radiology Impressions Radiology Exams & Impressions: Radiology Procedures Category Date Time Status CHEST 1 VIEW (PORTABLE) Stat Exams 10/31/23 22:42 Taken - Other Procedures and Tests Respiratory Therapy 10/31/23 23:05 Respiratory Therapy Assessment DAILY Assessment/Plan (1) Pneumonia Current Visit: Yes Status: Acute Qualifiers: Pneumonia type: due to unspecified organism Laterality: unspecified laterality Lung location: unspecified part of lung Qualified Code(s): J18.9 - Pneumonia, unspecified organism Assessment & Plan: 1. Ceftriaxone/Az started in the ED per provider 2. Monitor O2 - not hypoxic Code(s): J18.9 - PNEUMONIA, UNSPECIFIED ORGANISM Telemedicine Encounter - Telemedicine Encounter Telemedicine Encounter: The entirety of this encounter was performed via Telemedicine"
[2023-11-01] MEDS ORDERED: PROVENTIL Solution 2.5 MG/0.5 ML IH ONE (02:50)
[2023-11-01] MEDS: PROVENTIL 2.5 MG/3 ML NEB IH SCH (02:58)
[2023-11-01] MEDS ORDERED: ROCEPHIN 1 GM / 100 ML NaCl 1 GM/100 ML IVPB IV SCH (04:00)
[2023-11-01] MEDS: TYLENOL W/ CODEINE 5 ML UD CUP PO PRN (04:42)
[2023-11-01] MEDS: Advair Hfa 115/21 Common canister IH SCH (07:18)
[2023-11-01] MEDS ORDERED: ZITHROMAX IV*** 500 MG in Sodium Chloride 0.9% 250 ML 250 ML IV SCH (07:30)
--- NOTE | 2023-11-01 07:45 | XRAY ---
Indication: Short of breath. Comparison: October 30, 2023 Portable chest remains hyperinflated without focal infiltrate, consolidation, or large effusion. Heart not enlarged. No new/acute findings.
[2023-11-01] MEDS: Zithromax 500 MG/ 250 ML NaCl Premix 500 MG/250 ML IVPB IV SCH (08:13)
[2023-11-01] MEDS: NORVASC 5 MG PO SCH (08:46)
[2023-11-01] MEDS: Coreg 3.125 MG PO SCH (08:46)
[2023-11-01] MEDS: Apresoline 25 MG TABLET PO SCH (08:46)
[2023-11-01 09:04] LABS: Hematocrit 38.5 % (35-47); Hemoglobin 12.8 g/dL (12.0-16.0); Mean Cell Volume 91.7 fL (78-100); Mean Corpuscular Hemoglobin 30.5 pg (26-32); Mean Corpuscular Hgb Concent. 33.2 g/dL (32-36); Mean Platelet Volume 9.3 fL (7.5-11.0); Platelet Count 269 x10^3/uL (150-450); Red Cell Distribution Width 13.3 % (11.5-14.0)
[2023-11-01 09:11] LABS: ALBUMIN 3.8 g/dL (3.5-5.0); ANION GAP 12.6 MEQ/L (5-15); BILIRUBIN,TOTAL 0.4 mg/dL (0.2-1.3); Calcium 8.3 mg/dL (8.4-10.2); Creatinine 1 0.99 mg/dL (0.52-1.04); EST GLOMERULAR FILTRATION RATE 62.1 ML/MIN; Potassium 3.6 mmol/L (3.5-5.1); Total Protein 6.8 g/dL (6.3-8.2)
[2023-11-01 09:33] LABS: INFLUENZA A NEGATIVE (NEGATIVE); INFLUENZA B NEGATIVE (NEGATIVE); RESPIRATORY SYNCTIAL VIRUS NEGATIVE (NEGATIVE); SARS-CoV-2 Xpert Express NEGATIVE (NEGATIVE)
[2023-11-01] MEDS: hydroDIURIL 25 MG PO SCH (19:12)
[2023-11-01] MEDS: DIOVAN 80 MG PO SCH (19:12)
[2023-11-01] MEDS ORDERED: TYLENOL W/ CODEINE 5 ML UD CUP ONE (19:26)
[2023-11-01] MEDS: MUCINEX DM 600/30MG PO SCH (21:52)
[2023-11-01] MEDS: ROCEPHIN 1 GM / 100 ML NaCl 1 GM/100 ML IVPB IV SCH (21:53)
[2023-11-02] MEDS ORDERED: TYLENOL W/ CODEINE 5 ML UD CUP ONE (00:19)
[2023-11-02 04:57] LABS: Hematocrit 34.9 % (35-47); Hemoglobin 11.7 g/dL (12.0-16.0); Mean Cell Volume 92.3 fL (78-100); Mean Corpuscular Hgb Concent. 33.5 g/dL (32-36); Mean Platelet Volume 9.2 fL (7.5-11.0); Platelet Count 212 x10^3/uL (150-450); Red Blood Count 3.78 x10^6/uL (4.1-5.4); Red Cell Distribution Width 13.5 % (11.5-14.0); White Blood Count 6.9 x10^3/uL (4.0-10.5)
[2023-11-02 05:19] LABS: ALBUMIN 3.3 g/dL (3.5-5.0); ANION GAP 8.1 MEQ/L (5-15); BILIRUBIN,TOTAL 0.5 mg/dL (0.2-1.3); Creatinine 1 0.85 mg/dL (0.52-1.04); EST GLOMERULAR FILTRATION RATE 74.6 ML/MIN; Potassium 3.7 mmol/L (3.5-5.1); Total Protein 6.2 g/dL (6.3-8.2)
--- NOTE | 2023-11-02 05:46 | PCM.NOTE ---
Date and Time: 11/02/23 0545 Subjective Assessment: Ms. Martinez is a 68 year old female admitted to [facility] on 11/01/23 with complaints of worsening cough and shortness of breath for the past week. Patient admitted with leukocytosis and pneumonia. Current treatment with ceftriaxone/azithromycin. Objective Data Vital Signs: Vital Signs - 24 hr Temp Pulse Resp BP Pulse Ox 11/02/23 05:11 75 18 96 11/02/23 04:00 97.8 F 67 20 117/63 98 11/02/23 02:33 70 18 96 11/02/23 00:00 97.0 F 67 15 100/55 99 11/01/23 20:00 98.2 F 77 20 156/84 95 11/01/23 18:49 77 20 95 11/01/23 14:59 77 20 94 L 11/01/23 14:50 97.1 F 79 16 122/61 92 L 11/01/23 11:54 97.2 F 69 16 90/52 93 L 11/01/23 10:52 74 20 93 L 11/01/23 07:22 80 22 92 L 11/01/23 06:59 96.8 F 75 16 123/60 92 L Pain Assessment - Last Documented Pain Intensity 8 Intake and Output: Intake & Output 10/30/23 10/31/23 11/01/23 11/02/23 11:59 11:59 11:59 11:59 Intake Total 360 1180 Balance 360 1180 Weight 106.3 kg Lab Results: Lab Results-Last 24 Hours 11/01/23 11/01/23 11/01/23 Range/Units 08:20 08:20 08:20 WBC 11.0 H (4.0-10.5) x10^3/uL RBC 4.20 (4.1-5.4) x10^6/uL Hgb 12.8 (12.0-16.0) g/dL Hct 38.5 (35-47) % MCV 91.7 (78-100) fL MCH 30.5 (26-32) pg MCHC 33.2 (32-36) g/dL RDW 13.3 (11.5-14.0) % Plt Count 269 (150-450) x10^3/uL MPV 9.3 (7.5-11.0) fL Sodium 134 L (135-145) mmol/L Potassium 3.6 (3.5-5.1) mmol/L Chloride 102 (98-107) mmol/L Carbon Dioxide 23 (22-30) mmol/L Anion Gap 12.6 (5-15) MEQ/L BUN 16 (7-17) mg/dL Creatinine 0.99 (0.52-1.04) mg/dL Estimated GFR 62.1 ML/MIN Glucose 115 H (74-106) mg/dL Calcium 8.3 L (8.4-10.2) mg/dL Total Bilirubin 0.40 (0.2-1.3) mg/dL AST 46 H (14-36) U/L ALT 21 (0-35) U/L Alkaline Phosphatase 54 (38-126) U/L Serum Total Protein 6.8 (6.3-8.2) g/dL Albumin 3.8 (3.5-5.0) g/dL Influenza Type A Ag NEGATIVE (NEGATIVE) Influenza Type B Ag NEGATIVE (NEGATIVE) RSV (PCR) NEGATIVE (NEGATIVE) SARS-CoV-2 (PCR) NEGATIVE (NEGATIVE) 11/02/23 11/02/23 Range/Units 04:52 04:52 WBC 6.9 (4.0-10.5) x10^3/uL RBC 3.78 L (4.1-5.4) x10^6/uL Hgb 11.7 L (12.0-16.0) g/dL Hct 34.9 L (35-47) % MCV 92.3 (78-100) fL MCH 31.0 (26-32) pg MCHC 33.5 (32-36) g/dL RDW 13.5 (11.5-14.0) % Plt Count 212 (150-450) x10^3/uL MPV 9.2 (7.5-11.0) fL Sodium 136 (135-145) mmol/L Potassium 3.7 (3.5-5.1) mmol/L Chloride 104 (98-107) mmol/L Carbon Dioxide 28 (22-30) mmol/L Anion Gap 8.1 (5-15) MEQ/L BUN 15 (7-17) mg/dL Creatinine 0.85 (0.52-1.04) mg/dL Estimated GFR 74.6 ML/MIN Glucose 105 (74-106) mg/dL Calcium 8.0 L (8.4-10.2) mg/dL Total Bilirubin 0.50 (0.2-1.3) mg/dL AST 36 (14-36) U/L ALT 23 (0-35) U/L Alkaline Phosphatase 50 (38-126) U/L Serum Total Protein 6.2 L (6.3-8.2) g/dL Albumin 3.3 L (3.5-5.0) g/dL Influenza Type A Ag (NEGATIVE) Influenza Type B Ag (NEGATIVE) RSV (PCR) (NEGATIVE) SARS-CoV-2 (PCR) (NEGATIVE) Radiology Exams: Radiology Procedures Category Date Time Status CHEST 1 VIEW (PORTABLE) Stat Exams 10/31/23 22:42 Completed Assessment/Plan (1) Leukocytosis Current Visit: Yes Status: Acute Qualifiers: Leukocytosis type: unspecified Qualified Code(s): D72.829 - Elevated white blood cell count, unspecified Code(s): D72.829 - ELEVATED WHITE BLOOD CELL COUNT, UNSPECIFIED (2) Pneumonia Current Visit: Yes Status: Acute Qualifiers: Pneumonia type: due to unspecified organism Laterality: unspecified laterality Lung location: unspecified part of lung Qualified Code(s): J18.9 - Pneumonia, unspecified organism Code(s): J18.9 - PNEUMONIA, UNSPECIFIED ORGANISM (3) COPD exacerbation Current Visit: No Status: Acute Code(s): J44.1 - CHRONIC OBSTRUCTIVE PULMONARY DISEASE W (ACUTE) EXACERBATION
[2023-11-02 08:09] VITALS: O2SAT 91
--- NOTE | 2023-11-02 12:44 | PCM.DS ---
Discharge Summary Date of Admission: 11/01/23 01:05 Date of Discharge: 11/02/23 Admitting Physician: BRANDI FERRARO MD Primary Care Provider: LANA MENON Allergies Allergies codeine [Codeine] Allergy (Mild, Verified 10/31/23 22:33) Hives hives with itching reported by pt. Hospital Summary - Hospital Course Hospital Course: Ms. Martinez is a 68 year old female admitted to [facility] on 11/01/23 with complaints of worsening cough and shortness of breath for the past week. Patient admitted with leukocytosis and pneumonia. IP treatment with ceftriaxone/azithromycin. Dyspnea and cough have improved. Labs unremarkable. CXR Clear. Will discharge her home with nebulizer treatments, steroids, cefpodoxime, and home oxygen if she qualifies. Patient has home nebulizer with Duonebs/bronchodilator advised using dounebs every six hours as needed. Advised follow up with Dr. Fontenot. Discharge Note New Diagnosis: Pneumonia New Medications:cefpodoxime/medrol dose pack Follow Up: PCP/Pulm Latest Assessment & Plan (1) Leukocytosis Current Visit: Yes Status: Acute Qualifiers: 11/01: -resolved Leukocytosis type: unspecified Qualified Code(s): D72.829 - Elevated white blood cell count, unspecified Code(s): D72.829 - ELEVATED WHITE BLOOD CELL COUNT, UNSPECIFIED (2) Pneumonia Current Visit: Yes Status: Acute Qualifiers: 11/01: -Dyspnea improved -Walk test for home oxygen qualification -Nebs -medrol dosepack Pneumonia type: due to unspecified organism Laterality: unspecified laterality Lung location: unspecified part of lung Qualified Code(s): J18.9 - Pneumonia, unspecified organism Code(s): J18.9 - PNEUMONIA, UNSPECIFIED ORGANISM (3) COPD exacerbation Current Visit: No Status: A -Supplemental oxygen with goal spo2 > 88-92% -medrol dose pack -nebs as needed I spent 35 minutes [id number] with the patient on the day of discharge perfor radha discharge exam, discussing hospital stay and discharge instructions with patient and caregivers, preparation of discharge records, prescriptions & referral forms and addressing any questions/concerns the patient had as documented above. - Vitals & Intake/Output Vital Signs: Vital Signs Temperature 97.4 F 11/02/23 08:00 Pulse Rate 72 11/02/23 11:05 Respiratory Rate 18 11/02/23 11:05 Blood Pressure 100/50 11/02/23 08:00 O2 Sat by Pulse Oximetry 91 L 11/02/23 11:05 Intake & Output: Intake & Output 10/31/23 11/01/23 11/02/23 11/03/23 11:59 11:59 11:59 11:59 Intake Total 360 1420 Balance 360 1420 Weight 106.3 kg - Lab Result Diagrams: 11/02/23 04:52 11/02/23 04:52 Lab Results-Last 24 Hrs: Lab Results-Last 24 Hours 11/02/23 11/02/23 Range/Units 04:52 04:52 WBC 6.9 (4.0-10.5) x10^3/uL RBC 3.78 L (4.1-5.4) x10^6/uL Hgb 11.7 L (12.0-16.0) g/dL Hct 34.9 L (35-47) % MCV 92.3 (78-100) fL MCH 31.0 (26-32) pg MCHC 33.5 (32-36) g/dL RDW 13.5 (11.5-14.0) % Plt Count 212 (150-450) x10^3/uL MPV 9.2 (7.5-11.0) fL Sodium 136 (135-145) mmol/L Potassium 3.7 (3.5-5.1) mmol/L Chloride 104 (98-107) mmol/L Carbon Dioxide 28 (22-30) mmol/L Anion Gap 8.1 (5-15) MEQ/L BUN 15 (7-17) mg/dL Creatinine 0.85 (0.52-1.04) mg/dL Estimated GFR 74.6 ML/MIN Glucose 105 (74-106) mg/dL Calcium 8.0 L (8.4-10.2) mg/dL Total Bilirubin 0.50 (0.2-1.3) mg/dL AST 36 (14-36) U/L ALT 23 (0-35) U/L Alkaline Phosphatase 50 (38-126) U/L Serum Total Protein 6.2 L (6.3-8.2) g/dL Albumin 3.3 L (3.5-5.0) g/dL Micro Results-Entire Visit: Microbiology 10/31/23 03:11 Blood Culture - Preliminary Blood 10/31/23 23:09 Blood Culture - Preliminary Blood - Radiology Exams Ordered Rad Exams-Entire Visit: Radiology Procedures Category Date Time Status CHEST 1 VIEW (PORTABLE) Stat Exams 10/31/23 22:42 Completed - Procedures and Test Procedures and Tests throughout Hospitalization: Therapy Orders & Screens 10/31/23 23:05 Respiratory Therapy Assessment DAILY Comment: 11/01/23 01:54 RT Screen per Nursing Assess ONCE Comment: Protocol Order Physician Instructions: Greater than 3 points order RT Admission Screen Reason For Exam: Triggered on Admission Diagnosis: pneumonia Diagnosis: pneumonia Pneumonia: Yes Home O2: No Asthma: No CHF: No Home CPAP/BIPAP: No Home Nebs/MDI: Yes Total Points: 8 ST Screen per Nursing Assess ONCE Comment: Protocol Order Physician Instructions: Greater than [address] Admission Screening Reason For Exam: Triggered on Admission Diagnosis: pneumonia CVA/Dyshpagia/Aphasia: No Cognitive Deficits: No Dehydration/Nutrition Deficit: No Reflux: No Oral-Motor Difficulties: No Pneumonia: Yes Assisted Resident: No Total Points: 5 11/01/23 02:59 Respiratory Therapy Assessment DAILY Comment: Diagnosis: pneumonia 11/01/23 07:21 Oxygen NASAL CANNULA 2 lpm Comment: Diagnosis: pneumonia 11/01/23 11:04 Flutter Therapy UD Comment: Diagnosis: pneumonia 11/02/23 11:35 Qualify for Home Oxygen TODAY Comment: Diagnosis: pneumonia Discharge Exam General Appearance: no apparent distress Neurologic Exam: alert, oriented x 3, cooperative Eye Exam: PERRL Ears, Nose, Throat Exam: normal ENT inspection Neck Exam: normal inspection Respiratory Exam: crackles/rales, wheezing Cardiovascular Exam: regular rate/rhythm, normal heart sounds Gastrointestinal/Abdomen Exam: soft, normal bowel sounds Pelvic Exam: deferred Rectal Exam: deferred Back Exam: normal inspection Extremity Exam: normal inspection Skin Exam: normal color Final Diagnosis/Problem List - Final Discharge Diagnosis/Problem (1) Leukocytosis Current Visit: Yes Status: Resolved Code(s): D72.829 - ELEVATED WHITE BLOOD CELL COUNT, UNSPECIFIED (2) Pneumonia Current Visit: Yes Status: Resolved Code(s): J18.9 - PNEUMONIA, UNSPECIFIED ORGANISM (3) COPD exacerbation Current Visit: No Status: Chronic Code(s): J44.1 - CHRONIC OBSTRUCTIVE PULMONARY DISEASE W (ACUTE) EXACERBATION - Discharge Disposition: Home, Self-Care Condition: Stable Prescriptions: New Methylprednisolone Packet [Medrol Dosepack] 4 mg PO UD #30 packet Cefpodoxime Proxetil 200 mg [Vantin 200 mg] 200 mg PO BID 10 Days #20 tablet Continue HydrALAzine HCL 25 MG TAB [Apresoline 25 MG TABLET] 25 mg PO BID Valsartan/Hydrochlorothiazide [Valsartan-Hctz 320-12.5 mg Tab] 1 each PO DAILY Carvedilol 3.125 mg [Coreg 3.125 MG] 3.125 mg PO BID Amlodipine Besylate 5 mg [Norvasc 5 mg] 5 mg PO BID Semaglutide [Ozempic] 0.25 mg SQ WEEKLY Follow up with: SHANTA GORMAN [ACTIVE STAFF] - 11/18/23 4:00 pm (APPOINTMENT WILL BE AT THE [facility]ICE) LANA MENON MD [Primary Care Provider] - 11/13/23 10:00 am
[2023-11-02 13:17] VITALS: BP 125/58; PULSE 64; RESP 20; TEMP 97.5
== END 2023-11-02 15:22 | disposition home health service (06) ==
LOC: ED 22:15 → MED SURG 11-01 01:05
PROVIDERS: ADMIT Student in an Organized Health Care Education/Training Program; ATTEND Student in an Organized Health Care Education/Training Program
DX: J44.1 Chronic obstructive pulmonary disease with (acute) exacerbation (principal); J18.9 Pneumonia, unspecified organism; D72.829 Elevated white blood cell count, unspecified; I10 Essential (primary) hypertension; F17.200 Nicotine dependence, unspecified, uncomplicated; Z79.899 Other long term (current) drug therapy
CPT/HCPCS: 0241U; 36415; 71045; 80053; 83605; 84145; 84484; 85025; 85027; 87040; 93005; 94640; 94667; 94760; 96360; 99285; G0378; Q3014; J0456; J0696; J7609; A9270-GY

== ENCOUNTER 2024-04-06 07:33 | Day surgery (SDC) | payer MEDICARE, OTHER ==
[2012-03-03 07:51] VITALS: BP 154/92
[2024-04-06] MEDS ORDERED: Sodium Chloride 0.9(Preservative Free) 10 ML IJ ONE (07:34)
[2024-04-06] MEDS ORDERED: Decadron 4 MG INJ IV ONE (07:34)
[2024-04-06] MEDS ORDERED: DIPRIVAN 200 MG/20 ML IV ONE ×2 (08:52→09:04)
[2024-04-06] MEDS ORDERED: Lactated Ringers 1,000 ML IV ONE (09:24)
--- NOTE | 2024-04-06 20:04 | XRAY ---
Indication: Left L4-S1 transforaminal VIN Intraoperative fluoroscopy provided for 24 seconds. 5 digital spot image submitted for interpretation demonstrates posterior needle tips projecting over the expected left L4 and L5 nerve roots. Small amount of contrast injected for needle tip placement. Correlate with intraoperative findings/report.
--- NOTE | 2024-04-06 20:20 | XRAY ---
24 seconds of fluoroscopy was used in surgery for a left L4-S1 transforaminal VIN.
== END 2024-04-06 09:34 ==
LOC: SDC-PAIN 07:33
PROVIDERS: ATTEND Psychiatry & Neurology Pain Medicine
DX: M54.16 Radiculopathy, lumbar region (principal); R73.03 Prediabetes
CPT/HCPCS: 64483; 64484; 72100; 77003; 82947; J1100; J2704; Q9966

== ENCOUNTER 2024-10-28 11:23 | Emergency (ER) | payer MEDICARE, OTHER ==
--- NOTE | 2024-10-28 11:39 | ERPHSYRPT ---
- History of Present Illness Source: patient Exam Limitations: no limitations Physician History: Patient fell because a step that she was walking on broke. She lost her balance spun around and fell. She had the back of her head. She also has some right shoulder pain. There is no loss of consciousness. She is not on blood thinners. She does not have any cervical spine pain. She ambulated after the fall and said that nothing hurt but she did feel little bit dizzy. She has no neuro neurological symptoms at this time. She is breathing easy no abdominal pain no other musculoskeletal trauma other than the shoulder and the head. There is a laceration on posterior scalp. It is about 5 cm in length. Bleeding is well-controlled. Occurred: just prior to arrival Allergies/Adverse Reactions: codeine [Codeine] Allergy (Mild, Verified 10/31/23 22:33) Hives hives with itching reported by pt. Home Medications: Amlodipine Besylate 5 mg [Norvasc 5 mg] 5 mg PO BID 06/29/21 [History] Carvedilol 3.125 mg [Coreg 3.125 MG] 3.125 mg PO BID 06/29/21 [History] HydrALAzine HCL 25 MG TAB [Apresoline 25 MG TABLET] 25 mg PO BID 06/29/21 [History] Valsartan/Hydrochlorothiazide [Valsartan-Hctz 320-12.5 mg Tab] 1 each PO DAILY 06/29/21 [History] Semaglutide [Ozempic] 0.25 mg SQ WEEKLY 11/01/23 [History] Hx Tetanus, Diphtheria Vaccination/Date Given: Yes Hx Influenza Vaccination/Date Given: No Hx Pneumococcal Vaccination/Date Given: No Travel Risk - Emerging Infectious Disease Are you exhibiting symptoms associated with any current EIDs: Yes Symptoms: Cough: New Onset, Shortness of Breath - Review of Systems Constitutional: No Symptoms Eyes: No Symptoms Ears, Nose, & Throat: No Symptoms Respiratory: No Symptoms Skin: No Symptoms Neurological: No Symptoms - Past Medical History Pertinent Past Medical History: Yes Neurological History: No Pertinent History ENT History: No Pertinent History Cardiac History: Hypertension Respiratory History: Bronchitis, COPD Endocrine Medical History: No Pertinent History Musculoskeletal History: Other GI Medical History: GERD History: No Pertinent History Psycho-Social History: No Pertinent History Female Reproductive Disorders: No Pertinent History Other Medical History: Hiatal hernia - Past Surgical History Past Surgical History: Yes Neuro Surgical History: No Pertinent History Cardiac: Cardiac Catheterization Respiratory: No Pertinent History Gastrointestinal: No Pertinent History Genitourinary: No Pertinent History Musculoskeletal: Orthopedic Surgery Female Surgical History: Hysterectomy Other Surgical History: heart cath, foot surgery Significant Family History: heart disease, hypertension - Social History Smoking Status: Current every day smoker How long have you smoked: 1 Exposure to second hand smoke: No Drug Use: none - Social Determinants of Health Will the patient participate in the screening: Yes Do you worry about a steady place to live?: No In the past 12 months,have you had to go without utilities?: No Transportation Issues: No Has anyone in your support network made you feel unsafe?: No Have you or anyone in your house had to go w/o enough food: No - Nursing Vital Signs Nursing Vital Signs: Initial Vital Signs Temperature 96.7 F 10/28/24 11:24 Pulse Rate 81 10/28/24 11:24 Respiratory Rate 18 10/28/24 11:24 Blood Pressure 151/81 10/28/24 11:24 O2 Sat by Pulse Oximetry 98 10/28/24 11:24 Pain Scale Pain Intensity 0 - Emma Coma Score Best Eye Response (Emma): (4) open spontaneously Best Verbal Response (Emma): (5) oriented Best Motor Response ([place]): (6) obeys commands [place] Total: 15 - Physical Exam General Appearance: no apparent distress Head Injury: lacerations (5 cm laceration posterior skull and scalp. It is tender to palpation.) Eye Exam: PERRL/EOMI ENT Exam: airway nml Neck Exam: supple, trachea midline, full range of motion, normal alignment, normal inspection, No focal neuro deficit, No limited range of motion Respiratory/Chest Exam: normal breath sounds, No chest tenderness, No respiratory distress, No decreased breath sounds Cardiovascular Exam: normal heart sounds Gastrointestinal Exam: soft, normal bowel sounds Extremity Exam: other (Tenderness in the right shoulder with range of motion. There is no obvious deformities.) Neurologic Exam: alert, oriented x 3 Skin Exam: normal color, warm, dry - Course Nursing assessment & vital signs reviewed: Yes Ordered Tests: Active Orders 24 hr Category Date Time Status HEAD WITHOUT CONTRAST [CT] Stat Exams 10/28/24 12:15 Completed SHOULDER Stat Exams 10/28/24 12:15 Completed Medication Summary Discontinued Medications Generic Name Dose Route Start Last Admin Trade Name Bijal PRN Reason Stop Dose Admin Bacitracin Zinc 0.9 each 10/28/24 12:04 10/28/24 12:06 Bacitracin Packet 1 Each Pckt TP 10/28/24 12:05 0.9 each STAT ONE Administration Bacitracin Zinc Confirm 10/28/24 12:07 Bacitracin Packet 1 Each Pckt Administered 10/28/24 12:08 Dose 1 each .ROUTE .STK-MED ONE Hydromorphone HCl 1 mg 10/28/24 12:17 10/28/24 12:23 Hydromorphone 1 Mg/1ml Inj IV 10/28/24 12:18 1 mg STAT ONE Administration Hydromorphone HCl Confirm 10/28/24 12:22 Hydromorphone 1 Mg/1ml Inj Administered 10/28/24 12:23 Dose 1 mg .ROUTE .STK-MED ONE - Progress Progress Note: Patient was stable throughout stay. A CT of the head and an x-ray of the right shoulder ordered. After the patient went down for that she was doing well. She had minimal pain. She did have a significant laceration on her scalp which was described in the HPI and physical exam. It was repaired with noris see procedure note below. The CT and shoulder x-ray came backAnd showed no acute findings. Procedure note the wound was thoroughly cleaned and irrigated. Hibiclens was used. It was explored in a bloodless field. It was about 5 cm in length. It was then repaired with noris good wound closure was obtained. 10/28/24 13:20 - Departure Departure Disposition: Home Clinical Impression: Fall, Occipital scalp laceration Condition: Stable Critical Care Time: No Referrals: LANA MENON MD [Primary Care Provider] - Follow up/PCP as directed Instructions: Laceration Repair With Noris (DC), Minor Head Injury, Adult ED
[2024-10-28 11:44] VITALS: TEMP 96.5
[2024-10-28] MEDS: BACIGUENT PACKET TP ONE (12:06)
[2024-10-28] MEDS ORDERED: BACIGUENT PACKET ONE (12:07)
[2024-10-28] MEDS ORDERED: Hydromorphone 1 mg/ml Injection ONE (12:22)
[2024-10-28] MEDS: Hydromorphone 1 mg/ml Injection IV ONE (12:23)
[2024-10-28 12:50] VITALS: PULSE 70; RESP 15
[2024-10-28 13:02] VITALS: O2SAT 97
--- NOTE | 2024-10-28 13:08 | XRAY ---
Indication: Status post fall. Comparison: None 3 view right shoulder demonstrates osteopenia, mild AC degenerative changes, and mild multilevel thoracic degenerative spondylosis. No other bony, articular, or soft tissue abnormalities.
--- NOTE | 2024-10-28 13:09 | XRAY ---
Indication: Head injury/laceration following fall. Multiple contiguous axial images obtained through the head without contrast. Comparison: None Small right parietal scalp hematoma/laceration. Otherwise normal appearing brain parenchyma, ventricles, and bony calvarium for patients age. Visualized paranasal sinuses and mastoid air cells are clear. Impression: Right parietal scalp hematoma/laceration. Normal CT head without contrast exam.
[2024-10-28 13:45] VITALS: BP 125/85
== END 2024-10-28 13:46 | disposition home or self-care (01) ==
LOC: ED 11:23
DX: S01.01XA Laceration without foreign body of scalp, initial encounter (principal); W19.XXXA Unspecified fall, initial encounter; M25.511 Pain in right shoulder; I10 Essential (primary) hypertension; Z79.85 Long-term (current) use of injectable non-insulin antidiabetic drugs; Z79.899 Other long term (current) drug therapy; Z72.0 Tobacco use
CPT/HCPCS: 12002; 70450; 73030; 96374; 99284; J1171; A9270-GY